=== PATIENT | female | born 1965 | race Caucasian/White ===

== ENCOUNTER 2022-08-17 09:28 | Outpatient (CLI) | payer OTHER, SELFPAY ==
[2022-08-17 09:44] LABS: Basophils Absolute Auto 0.04 K/mm3 (0.00-0.10); Basophils Percent Auto 0.5 % (0.0-1.0); Eosinophils Absolute Auto 0.15 K/mm3 (0.02-0.50); Hematocrit 45.6 % (35.0-49.0); Hemoglobin 14.8 g/dL (12.0-15.0); Immature Granulocyte Absolute 0.02 K/mm3 (0.00-0.00); Immature Granulocyte Percent A 0.3 % (0.0-0.0); Lymphocytes Absolute Auto 2.27 K/mm3 (1.10-4.50); Lymphocytes Percent Auto 30.1 % (18.0-42.0); Mean Corpuscular HGB Conc 32.5 g/dL (32.0-36.0); Mean Corpuscular Hemoglobin 27.8 pg (27.0-31.0); Mean Corpuscular Volume 85.7 fL (78.0-102.0); Mean Platelet Volume 10.5 fl (9.2-11.8); Monocytes Absolute Auto 0.48 K/mm3 (0.10-0.90); Monocytes Percent Auto 6.4 % (2.0-11.0); Neutrophils Absolute Auto 4.6 K/mm3 (1.7-7.2); Neutrophils Percent Auto 60.7 % (50.0-70.0); Platelet Count Result 261 K/mm3 (150-420); Red Blood Count 5.32 M/mm3 (4.20-5.40); Red Cell Distribution Width 13.8 % (11.6-14.4); White Blood Count 7.5 K/mm3 (4.8-10.8)
[2022-08-17 09:49] LABS: Appearance Urine Clear (Clear); Bilirubin Urine Negative (Negative); Blood Urine Negative (Negative); Color Urine Light Yellow (Yellow); Glucose Urine UA Negative (Negative); Ketones Urine Negative (Negative); Leukocyte Esterase Ur 1+ (Negative); Nitrate Urine Positive (Negative); Protein Urine Negative (Negative); Urobilinogen Urine 0.2 mg/dL (0.2-1.0); pH Urine 6.5 (5.0-8.0)
[2022-08-17 10:02] LABS: Add Urine Microscopic? YES; Bacteria Urine 3+ /hpf; RBC Urine None seen /hpf (0-2); Squamous Epithelial Cell Urine Few /hpf (Few)
[2022-08-17 10:44] LABS: Alanine Aminotransferase 34 U/L (14-59); Albumin Level 3.7 g/dL (3.4-5.0); Alkaline Phosphatase 132 U/L (46-116); Anion Gap 6 mmol/L (8-16); Aspartate Amino Transferase 13 U/L (15-37); Bilirubin,Total 0.4 mg/dL (0.00-1.00); Blood Urea Nitrogen 14 mg/dL (7-18); Calcium 10.1 mg/dL (8.5-10.1); Carbon Dioxide 30 mmol/L (21-32); Chloride 105 mmol/L (98-108); Cholesterol 221 mg/dL (0-200); Estimated Glomerular Filt Rate > 60; Free T3 4.17 pg/mL (2.18-3.98); Free T4 Free Thyroxine 1.19 ng/dL (0.76-1.46); Glucose 95 mg/dL (70-99); HDL Direct 53 mg/dL (40-60); LDL Cholesterol Calculated 143 mg/dL (<130); Osmolality Calculated 292 mOsm/kg (285-295); Potassium 4.5 mmol/L (3.5-5.1); Sodium 141 mmol/L (136-145); Total Protein 6.7 g/dL (6.4-8.2); Triglycerides 125 mg/dL (0-150)
[2022-08-17 11:09] LABS: Thyroid Stimulating Hormone < 0.01 uIU/mL (0.36-3.74)
== END 2022-08-17 09:29 | disposition home or self-care (01) ==
LOC: CHSLAB 09:35
PROVIDERS: PCP Internal Medicine; Visit Provider Internal Medicine
DX: I10 Essential (primary) hypertension (principal)
CPT/HCPCS: 36415; 80053; 80061; 81001; 84439; 84443; 84481; 85025

== ENCOUNTER 2022-08-19 12:47 | Outpatient (CLI) | payer OTHER, SELFPAY ==
--- NOTE | ~2022-08-19 | MM_ITS ---
EXAMINATION: MM screening parris BI w rosanna HISTORY: Screening mammogram TECHNIQUE: Craniocaudal and mediolateral oblique 3-D tomosynthesis images were obtained and synthetic 2-D images were generated. CAD analysis was submitted and interpreted. COMPARISON: No prior mammogram is available for comparison at this institution. BREAST PARENCHYMAL COMPOSITION: There are scattered areas of fibroglandular density. FINDINGS: There is no evidence of suspicious mass, calcification, or architectural distortion to sugg est malignancy in either breast. There has been no suspicious interval change. IMPRESSION: 1. No mammographic evidence of malignancy. 2. Recommend routine screening mammography in one year. BI-RADS Category 1: Negative Reviewed, dictated and finalized at location A.
--- NOTE | ~2022-08-19 | DEXA_ITS ---
Bone Density Report Name: LEONORA PENALOZA Age: 57 Sex: Female Ethnicity: White Date of : 1965 Indication: postmenopausal; screening for osteoporosis; parental hip fracture; height loss; prior fracture; asthma or emphysema; hysterectomy; Referring Provider: Ishaan Neal Study: Bone densitometry was performed. Exam Date: August 19, 2022 Accession number: [id number] Bone Density: Region BMD T-score Z-score Classification AP Spine(L1-L4) 0.927 -1.1 0.3 Osteopenia Femoral Neck (Left) 0.644 -1.8 -0.6 Osteopenia Total Hip (Left) 0.789 -1.3 -0.4 Osteopenia Femoral Neck (Right) 0.643 -1.9 -0.6 Osteopenia Total Hip (Right) 0.796 -1.2 -0.3 Osteopenia Femoral Neck Mean 0.644 -1.9 -0.6 Osteopenia Total Hip Mean 0.793 -1.2 -0.3 Osteopenia World Health Organization criteria for BMD impression classify patients as: Normal (T-score at or above -1.0), Osteopenia (T-score between -1.0 and -2.5), or Osteoporosis (T-score at or below -2.5). 10-year Fracture Risk: FRAX not reported because: Prior hip or vertebral fracture Clinical Information Provided by Patient: Have had a previous hip or vertebral fracture Has had a low trauma fracture Parent has had a hip fracture Has used the following medications: Vitamin D, Calcium Has the following medical conditions: Asthma or Emphysema, Hysterectomy Patient maximum height was 68.5 Menopause Age: 46 No regular weight bearing exercise Does not regularly consume dairy products Drinks caffeinated beverages Onset of menses at age 11 Number of children 3 Impression: The patient has low bone mass, based on the Right Femoral Neck T-score. The patient has risk factors, including: parental hip fracture, previous fracture. Discussion: INCREASED RISK OF FRACTURE DUE TO HISTORY OF FRACTURE. The patient's previous fracture puts the patient at high risk of a future fracture. In untreated patients, the risk of osteoporotic fracture increases approximately two-fold for each 1.0 SD decrease in T-score. Low bone density is not the only risk factor for fracture; also consider factors such as patient's age, frailty or poor health, risk of falling, risk of injury, previous osteoporotic fracture, family history of osteoporosis, cigarette smoking, low body weight, etc. Not everyone with a low trauma fracture has osteoporosis; osteomalacia and other metabolic bone disorders should also be considered. Patients who have osteoporosis should be evaluated for specific diseases and conditions (secondary causes) that may cause or contribute to bone loss and fracture risk. National Osteoporosis Foundation (NOF) recommends pharmacologic intervention for patients with a prior hip or vertebral fracture regardless of BMD T-score. The patient should follow a healthful lifestyle (good nutrition with adequate calcium and vitamin D, and appropriate weight-bearing exercise).
== END 2022-08-19 12:48 | disposition home or self-care (01) ==
LOC: CHSIMG 12:49
PROVIDERS: PCP Internal Medicine; Visit Provider Internal Medicine
DX: Z12.31 Encounter for screening mammogram for malignant neoplasm of breast (principal); Z78.0 Asymptomatic menopausal state; M85.89 Other specified disorders of bone density and structure, multiple sites
CPT/HCPCS: 77063; 77067; 77080

== ENCOUNTER → 2022-09-08 12:55 | Outpatient (CLI) | payer OTHER, SELFPAY ==
--- NOTE | ~2022-09-08 | US_ITS ---
EXAMINATION: US thyroid DATE: 09/08/2022 13:20 INDICATION: Hyperthyroidism. TECHNIQUE: Multiple ultrasound images of the thyroid were obtained. COMPARISON: None. FINDINGS: The right thyroid lobe measures 5.9 x 2.3 x 2.5 cm. The left thyroid lobe measures 5.2 x 1.5 x 2.0 c m. In the left thyroid lobe, there is a 1.3 cm solid, hypoechoic, wider than tall nodule with ill-de fined margin and punctate echogenic foci (TI-RADS TR5). In the left thyroid lobe, there is an 11 mm s olid, hypoechoic, wider than tall nodule with smooth margin without echogenic foci (TR4). In the righ t thyroid lobe, there is a 1.7 cm solid, hypoechoic, wider than tall nodule with punctate echogenic f oci and smooth margin (TR5). In the right thyroid lobe, there is a 2.0 cm solid, hypoechoic, wider th an tall nodule with smooth margin, punctate echogenic foci, and macrocalcification (TR5). IMPRESSION: 1. Multinodular goiter. Ultrasound-guided fine-needle aspiration of 2 nodules is recommended. Reviewed, dictated and finalized at location A. IMPRESSION: 1. Multinodular goiter. Ultrasound-guided fine-needle aspiration of 2 nodules i s recommended.
== END ==
PROVIDERS: PCP Internal Medicine; Visit Provider Internal Medicine
DX: E05.90 Thyrotoxicosis, unspecified without thyrotoxic crisis or storm (principal); E04.2 Nontoxic multinodular goiter
CPT/HCPCS: 76536

== ENCOUNTER 2022-10-03 07:56 | Outpatient (CLI) | payer OTHER, SELFPAY ==
--- NOTE | ~2022-10-03 | NM_ITS ---
EXAMINATION: NM thyroid scan w uptake DATE: 10/04/2022 10:03 INDICATION: Hyperthyroidism. COMPARISON: Ultrasound 09/08/2022 TECHNIQUE: 0.228 mCi I-123 was administered orally. Scintigraphic images of the thyroid gland were o btained at 24 hours. Thyroid uptake was calculated by the technologist. FINDINGS: The thyroid uptake is 48% (normal 10-30%). There is heterogeneous activity in the thyroid correlating with a multinodular goiter by ultrasound. IMPRESSION: 1. Increased 24-hour iodine uptake, consistent with Graves' disease. 2. Multinodular goiter. Reviewed, dictated and finalized at location A.
== END 2022-10-03 07:57 | disposition home or self-care (01) ==
LOC: CHSIMG 07:57
PROVIDERS: PCP Internal Medicine; Visit Provider Internal Medicine
DX: E05.90 Thyrotoxicosis, unspecified without thyrotoxic crisis or storm (principal); E04.2 Nontoxic multinodular goiter
CPT/HCPCS: 78014; A9516

== ENCOUNTER 2023-01-10 11:06 | Outpatient (CLI) | payer OTHER, SELFPAY ==
[2023-01-10 11:21] LABS: Basophils Absolute Auto 0.05 K/mm3 (0.00-0.10); Basophils Percent Auto 0.7 % (0.0-1.0); Eosinophils Absolute Auto 0.21 K/mm3 (0.02-0.50); Eosinophils Percent Auto 2.8 % (1.0-6.0); Immature Granulocyte Absolute 0.03 K/mm3 (0.00-0.00); Immature Granulocyte Percent A 0.4 % (0.0-0.0); Lymphocytes Absolute Auto 1.86 K/mm3 (1.10-4.50); Lymphocytes Percent Auto 24.8 % (18.0-42.0); Mean Corpuscular HGB Conc 32.6 g/dL (32.0-36.0); Mean Corpuscular Hemoglobin 27.7 pg (27.0-31.0); Mean Corpuscular Volume 84.9 fL (78.0-102.0); Mean Platelet Volume 10.7 fl (9.2-11.8); Monocytes Absolute Auto 0.41 K/mm3 (0.10-0.90); Monocytes Percent Auto 5.5 % (2.0-11.0); Neutrophils Absolute Auto 4.9 K/mm3 (1.7-7.2); Neutrophils Percent Auto 65.8 % (50.0-70.0); Platelet Count Result 237 K/mm3 (150-420); Red Blood Count 5.42 M/mm3 (4.20-5.40); Red Cell Distribution Width 13.5 % (11.6-14.4); White Blood Count 7.5 K/mm3 (4.8-10.8)
[2023-01-10 11:32] LABS: Bilirubin Urine Negative (Negative); Blood Urine Negative (Negative); Color Urine Yellow (Yellow); Glucose Urine UA Negative (Negative); Ketones Urine Negative (Negative); Leukocyte Esterase Ur Trace (Negative); Nitrate Urine Positive (Negative); Protein Urine Negative (Negative); Specific Grav Ur 1.025 (1.010-1.020); Urobilinogen Urine 0.2 mg/dL (0.2-1.0)
[2023-01-10 11:41] LABS: Add Urine Microscopic? YES; Appearance Urine Cloudy (Clear); Bacteria Urine 4+ /hpf; RBC Urine None seen /hpf (0-2); Squamous Epithelial Cell Urine Few /hpf (Few)
[2023-01-10 11:57] LABS: Alanine Aminotransferase 39 U/L (14-59); Albumin Level 3.4 g/dL (3.4-5.0); Alkaline Phosphatase 114 U/L (46-116); Anion Gap 7 mmol/L (8-16); Aspartate Amino Transferase 15 U/L (15-37); Bilirubin,Total 0.4 mg/dL (0.00-1.00); Blood Urea Nitrogen 17 mg/dL (7-18); Calcium 9.9 mg/dL (8.5-10.1); Carbon Dioxide 30 mmol/L (21-32); Chloride 103 mmol/L (98-108); Estimated Glomerular Filt Rate > 60; Free T3 3.58 pg/mL (2.18-3.98); Free T4 Free Thyroxine 1.15 ng/dL (0.76-1.46); Glucose 116 mg/dL (70-99); Osmolality Calculated 292 mOsm/kg (285-295); Sodium 140 mmol/L (136-145); Total Protein 6.6 g/dL (6.4-8.2)
[2023-01-10 12:26] LABS: Thyroid Stimulating Hormone < 0.01 uIU/mL (0.36-3.74)
[2023-01-13 13:34] LABS: Thyroid Stimulating Immunoglob <89 % baseline (<140)
[2023-01-15 05:16] LABS: Thyroid Peroxidase Antibodies 6 IU/mL (<9)
== END 2023-01-10 11:07 | disposition home or self-care (01) ==
PROVIDERS: PCP Internal Medicine; Visit Provider Internal Medicine
DX: I10 Essential (primary) hypertension (principal); E03.9 Hypothyroidism, unspecified; E04.9 Nontoxic goiter, unspecified; N39.0 Urinary tract infection, site not specified
CPT/HCPCS: 36415; 80053; 81001; 84439; 84443; 84445; 84481; 85025; 86376; 87086; 87088

== ENCOUNTER 2023-01-10 15:35 | Emergency (ER) | payer OTHER, SELFPAY ==
--- NOTE | ~2023-01-10 | CT_ITS ---
EXAMINATION: CT abdomen pelvis wo con DATE: 01/10/2023 16:14 INDICATION: Left flank pain TECHNIQUE: Computed tomography (CT) of the abdomen and pelvis was performed without intravenous contr ast. Automated exposure control and iterative reconstruction technique were employed. The dose-length product was 877.18 mGy-cm. COMPARISON: None. FINDINGS: Lower thorax: Unremarkable Liver: Normal. Biliary/Gallbladder: Gallbladder is normal. No bile duct dilation. Pancreas: No mass or duct dilation. Spleen: Normal. Adrenals:No mass. Kidneys: No hydronephrosis or suspicious mass. Bilateral angiomyolipomas less than 2 cm on the right and 2.9 cm on the left, without hemorrhage. Subcentimeter focal hyperdensities in the right kidney ma y represent nonobstructing cortical calcification versus small hemorrhagic cysts. No obstructive calc ification present. No suspicious mass. GI tract: No small or large bowel dilation. Normal appendix. Diverticulosis without diverticulitis. Mesentery/Peritoneum: No ascites, mass, or free air. Retroperitoneum: No mass. Pelvis: Normal urinary bladder. Absent uterus.. Soft Tissues: Soft tissues and body wall unremarkable. Bones: No acute osseous finding. IMPRESSION: No acute abdominopelvic process detected. Bilateral renal angiomyolipomas, measuring up to 2.9 cm on the left, for which follow-up imaging aftab mmended in 5 years. No follow-up recommended for the right-sided lesion. Reviewed, dictated and finalized at location K. ONNEL ASSISTANT IMPRESSION: No acute abdominopelvic process detected. 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 No follow-up recommended for the righ t-sided lesion.
[2023-01-10 15:35] VITALS: BP 207/100; PULSE 85; RESP 18; TEMP 35.9; O2SAT 98
--- NOTE | 2023-01-10 15:40 | ED.ABDPAIN ---
HPI - Abdominal Pain General Chief Complaint: Back Pain/Injury Stated Complaint: back pain Time Seen by Provider: 01/10/23 15:39 Source: patient and RN notes reviewed Mode of arrival: ambulatory Limitations: no limitations History of Present Illness MD elicited complaint: flank pain (left) Pertinent past history: none Onset (ago): day(s) (3) Pain Consistency: intermittent Location: L flank Severity: moderate Quality: cramping, stabbing and sharp Radiation: none Migration to: no migration Exacerbating factors: nothing Relieving factors: nothing Associated symptoms: vomiting ( on Monday none since) Related Data Home Medications Medication Instructions Recorded Confirmed carvedilol 6.25 mg tablet 12.5 mg PO DAILY 01/10/23 01/10/23 losartan 100 1 tablet PO DAILY 01/10/23 01/10/23 mg-hydrochlorothiazide 12.5 mg tablet Allergies Allergy/AdvReac Type Severity Reaction Status Date / Time Sulfa (Sulfonamide Allergy Severe Rash Verified 01/10/23 15:47 Antibiotics) codeine Allergy Intermediate GI UPSET Verified 01/10/23 15:47 erythromycin base Allergy Unknown Unknown Verified 01/10/23 15:47 EMYCIN Allergy Severe RED,FLUSHED, Uncoded 01/10/23 15:47 PEELING SKIN PMFSH Past Medical History Medical History (Updated 01/10/23 @ 16:44 by Jignesh Foster MD) Asthma Hypertension Surgical History Surgical History (Updated 01/10/23 @ 15:57 by Jignesh Foster MD) History of total abdominal hysterectomy and bilateral salpingo-oophorectomy Hx of tonsillectomy Family History Family History (System 03/26/19 @ 17:33 by Dara Fay) Mother Hypertension Family history of arthritis Family history of chronic obstructive pulmonary disease Family history of emphysema Father Carcinoma of colon Malignant neoplasm of prostate Sibling Family history of malignant neoplasm of uterus Social History Social History Smoking status: Never smoker Alcohol intake: current Exam Const: General: healthy appearing, no acute distress and alert Nutritional Appearance: well nourished Orientation/consciousness: patient oriented x3 Limitations: no limitations HENMT: Head: normal to inspection Ears: external ears normal Face/Nose/Sinus: Normal external nose present Face and sinus: normal facial exam Mouth: Yes moist mucous membranes Eyes: Conjunctivae: conjunctivae normal Pupils: Equal, round and reactive pupils present EOM: EOMs intact bilaterally Neck: Neck: normal visual inspection Resp: Effort & Inspection: normal respiratory effort Auscultation: clear to auscultation bilaterally Cardio: Rate: regular rate Rhythm: regular rhythm GI: GI Palp: Yes Soft to palpation and No Tenderness to palpation present (GI) Auscultation: normal bowel sounds Back/Spine/Pelvis: Back: CVA tenderness ( moderate on the left) Cervical Spine: cervical ROM normal Thoracic/Lumbar Spine: thoraco-lumbar ROM normal Skin: General skin exam: normal color Rashes: no rashes Neuro: General: patient oriented x3, moves all extremities, no focal motor deficits and CN's II-XI intact bilaterally Speech: normal speech Gait exam (Neuro): Normal gait present Extrem: General: normal to inspection and no clubbing, cyanosis or edema Psych: Mental Status: mental status grossly normal Affect: normal affect Attitude: cooperative Course Vital Signs Vital signs: Vital Signs Temperature 35.9 C L 01/10/23 15:35 Pulse Rate 85 01/10/23 15:35 Respiratory Rate 18 01/10/23 15:35 Blood Pressure 207/100 H 01/10/23 15:35 Pulse Oximetry 98 01/10/23 15:35 Oxygen Delivery Room Air 01/10/23 15:35 Temperature 35.9 C L 01/10/23 15:50 Pulse Rate 85 01/10/23 15:50 Respiratory Rate 18 01/10/23 15:50 Blood Pressure 207/100 H 01/10/23 15:50 Pulse Oximetry 98 01/10/23 15:50 Oxygen Delivery Room Air 01/10/23 15:50 MDM - Abdominal Pain Dif
[2023-01-10 15:50] VITALS: BP 207/100; PULSE 85; RESP 18; TEMP 35.9; O2SAT 98
[2023-01-10] MEDS: KETOROLAC (*BKC) 60 MG/2 ML VIAL IM (16:04)
[2023-01-10] MEDS: cefTRIAXone 1 GM VIAL IM (17:02)
[2023-01-10] MEDS: LIDOCAINE HCL 1% LOCAL INJ 10 ML VIAL (17:03)
[2023-01-10 17:10] VITALS: BP 198/88; PULSE 88; RESP 18; O2SAT 98
== END 2023-01-10 17:10 | disposition home or self-care (01) ==
PROVIDERS: Emergency Provider Emergency Medicine; PCP Internal Medicine
DX: N30.00 Acute cystitis without hematuria (principal); J45.909 Unspecified asthma, uncomplicated; I10 Essential (primary) hypertension; Z79.899 Other long term (current) drug therapy
CPT/HCPCS: 74176; 96372; 99284; J0696; J1885

== ENCOUNTER 2023-06-08 10:21 | Outpatient (CLI) | payer OTHER, SELFPAY ==
[2023-06-08 11:40] LABS: Free T3 3.95 pg/mL (2.18-3.98); Free T4 Free Thyroxine 1.14 ng/dL (0.76-1.46)
[2023-06-08 12:21] LABS: Thyroid Stimulating Hormone < 0.01 uIU/mL (0.36-3.74)
[2023-06-17 17:04] LABS: PRA 0.45 ng/mL/h (0.25-5.82)
== END 2023-06-08 10:22 | disposition home or self-care (01) ==
PROVIDERS: PCP Internal Medicine
DX: I1A.0 Resistant hypertension (principal); E05.90 Thyrotoxicosis, unspecified without thyrotoxic crisis or storm
CPT/HCPCS: 36415; 82088; 84244; 84432; 84439; 84443; 84481

== ENCOUNTER 2023-07-06 10:41 | Outpatient (CLI) | payer OTHER, SELFPAY ==
--- NOTE | ~2023-07-06 | XR_ITS ---
AP and lateral views of the left hip Clinical history: Pain Findings: No acute fracture or dislocation is seen. Osseous alignment is anatomic. Moderate left hip joint degenerative change present. Soft tissues are unremarkable. Impression: Moderate left hip joint degenerative change. Reviewed, dictated and finalized at location . Impression: Moderate left hip joint degenerative change.
== END 2023-07-06 10:42 | disposition home or self-care (01) ==
LOC: CHSIMG 10:43
PROVIDERS: PCP Internal Medicine; Visit Provider Internal Medicine
DX: M16.12 Unilateral primary osteoarthritis, left hip (principal)
CPT/HCPCS: 73502

== ENCOUNTER 2023-12-13 10:12 | Outpatient (CLI) | payer OTHER, SELFPAY ==
[2023-12-13 10:33] LABS: Basophils Absolute Auto 0.07 K/mm3 (0.00-0.10); Basophils Percent Auto 0.8 % (0.0-1.0); Eosinophils Absolute Auto 0.23 K/mm3 (0.02-0.50); Eosinophils Percent Auto 2.7 % (1.0-6.0); Hematocrit 44.7 % (35.0-49.0); Hemoglobin 14.6 g/dL (12.0-15.0); Immature Granulocyte Absolute 0.04 K/mm3 (0.00-0.00); Immature Granulocyte Percent A 0.5 % (0.0-0.0); Lymphocytes Absolute Auto 2.01 K/mm3 (1.10-4.50); Lymphocytes Percent Auto 23.4 % (18.0-42.0); Mean Corpuscular HGB Conc 32.7 g/dL (32-36); Mean Corpuscular Hemoglobin 27.2 pg (27.0-31.0); Mean Corpuscular Volume 83.4 fL (78.0-102.0); Mean Platelet Volume 10.8 fl (9.2-11.8); Monocytes Absolute Auto 0.65 K/mm3 (0.10-0.90); Monocytes Percent Auto 7.6 % (2.0-11.0); Platelet Count Result 321 K/mm3 (150-420); Red Blood Count 5.36 M/mm3 (4.20-5.40); Red Cell Distribution Width 13.2 % (11.6-14.4); White Blood Count 8.6 K/mm3 (4.8-10.8)
[2023-12-13 11:15] LABS: Alanine Aminotransferase 31 U/L (14-59); Alkaline Phosphatase 118 U/L (46-116); Anion Gap 10 mmol/L (4-12); Aspartate Amino Transferase 15 U/L (15-37); Bilirubin,Total 0.6 mg/dL (0.00-1.00); Blood Urea Nitrogen 18 mg/dL (7-18); Calcium 10.4 mg/dL (8.5-10.1); Carbon Dioxide 28 mmol/L (21-32); Chloride 104 mmol/L (98-108); Cholesterol 218 mg/dL (0-200); Estimated Glomerular Filt Rate > 60; Free T3 4.71 pg/mL (2.18-3.98); Glucose 100 mg/dL (70-99); HDL Direct 46 mg/dL (40-60); LDL Cholesterol Calculated 147 mg/dL (<130); Osmolality Calculated 295 mOsm/kg (285-295); Sodium 142 mmol/L (136-145); Total Protein 6.7 g/dL (6.4-8.2); Triglycerides 124 mg/dL (0-150)
[2023-12-13 11:20] LABS: Thyroid Stimulating Hormone < 0.01 uIU/mL (0.36-3.74)
== END 2023-12-13 10:13 | disposition home or self-care (01) ==
PROVIDERS: PCP Internal Medicine; Visit Provider Internal Medicine
DX: I10 Essential (primary) hypertension (principal); E05.90 Thyrotoxicosis, unspecified without thyrotoxic crisis or storm; E66.9 Obesity, unspecified
CPT/HCPCS: 36415; 80053; 80061; 84439; 84443; 84481; 85025

== ENCOUNTER 2023-12-25 23:33 | Emergency (ER) | payer OTHER, SELFPAY ==
--- NOTE | ~2023-12-25 | CT_ITS ---
CT of the Abdomen and Pelvis: Indication: Abdominal pain Technique: 2.5 mm axial scans were obtained through the abdomen and pelvis following intravenous adm inistration of 100 cc of Omnipaque 350. Dose reduction technique was used on this scan by utilizing a utomated exposure control and iterative reconstruction technique. The dose-length product (DLP) was 7 03.55 mGy-cm. COMPARISON: 01/10/2023 Findings: Scans through the lung bases are unremarkable. The liver, spleen, gallbladder, adrenals and right kidney are within normal limits. 2.6 subcentimeter fat-containing left renal mass is compatible with angiomyolipoma. There are atherosclerotic calcific ations of the aorta. No lymphadenopathy. There is peripancreatic fluid and inflammatory change exten ding to the right upper quadrant, and into the bilateral paracolic gutters. There is small amount of pelvic ascites. No pancreatic necrosis or focal contained fluid collection evident. No bowel obstruction or bowel wall thickening. There is no evidence to suggest acute appendicitis. Images through the pelvis were performed. Urinary bladder unremarkable. Status post hysterectomy. No pelvic mass seen. Impression: Peripancreatic fluid and inflammatory change with associated small amount of pelvic ascites, as detai led above. Findings are consistent with acute pancreatitis. No evidence for pancreatic necrosis or ps eudocyst. 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 Reviewed, dictated and finalized at location . /MOULD OPERATOR Impression: Peripancreatic fluid and inflammatory change with associated small amount of pe lvic ascites, as detailed above. Findings are consistent with acute pancreatiti s. No evidence for pancreatic necrosis or pseudocyst. 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
[2023-12-25 23:35] VITALS: BP 154/102; PULSE 90; RESP 18; TEMP 36.6; O2SAT 97
--- NOTE | 2023-12-25 23:44 | ED_ITS ---
HPI - Abdominal Pain General Chief Complaint: Abdominal Pain Stated Complaint: abdominal pain Time Seen by Provider: 12/25/23 23:44 Source: patient Mode of arrival: ambulatory History of Present Illness HPI narrative: 58 YEARS OLD WHITE FEMALE DROVE HERSELF TO THE EMERGENCY ROOM COMPLAINING OF GENERALIZED ABDOMINAL PAIN STARTED 12 HOURS PRIOR TO ARRIVAL TO THE EMERGENCY ROOM, GENERALIZED, SHARP, WITH INTERMITTENT AGGRAVATION WORSENING, PATIENT DENIES AGGRAVATING OR RELIEVING FACTORS, PATIENT REPORTS VOMITING ONCE PER HOURS PRIOR ARRIVAL, SHE DENIES ANY DIARRHEA CONSTIPATION FEVER CHILLS. HISTORY OF HYSTERECTOMY HYPERTENSION, HYPOTHYROIDISM, ASTHMA. PATIENT DOES NOT SMOKE DRINKS OCCASIONALLY. Related Data Home Medications Medication Instructions Recorded Confirmed carvedilol 6.25 mg tablet (Coreg) 12.5 mg PO DAILY 01/10/23 12/25/23 losartan 100 1 tablet PO DAILY 01/10/23 12/25/23 mg-hydrochlorothiazide 12.5 mg tablet (Hyzaar) tirzepatide (weight loss) 10 10 mg subcut 12/25/23 mg/0.5 mL subcutaneous pen injector (Zepbound) Allergies Allergy/AdvReac Type Severity Reaction Status Date / Time Sulfa (Sulfonamide Allergy Severe Rash Verified 12/25/23 23:45 Antibiotics) codeine Allergy Intermediate GI UPSET Verified 12/25/23 23:45 erythromycin base Allergy Unknown Unknown Verified 12/25/23 23:45 EMYCIN Allergy Severe RED,FLUSHED, Uncoded 01/10/23 15:47 PEELING SKIN Review of Systems Review of Systems: All systems reviewed & are unremarkable except as noted in HPI and below PMFSH Past Medical History Medical History Asthma Hypertension Surgical History Surgical History History of total abdominal hysterectomy and bilateral salpingo-oophorectomy Hx of tonsillectomy Family History Family History Mother Hypertension Family history of arthritis Family history of chronic obstructive pulmonary disease Family history of emphysema Father Carcinoma of colon Malignant neoplasm of prostate Sibling Family history of malignant neoplasm of uterus Social History Social History Smoking status: Never smoker Alcohol intake: current Exam 2 Narrative: GENERAL APPEARANCE: WELL-DEVELOPED, WELL-NOURISHED SKIN: NORMAL COLOR HEAD: NORMOCEPHALIC, NONTRAUMATIC EYES: CLEAR CONJUNCTIVA ENT: OROPHARYNX NORMAL, EARS NORMAL, NOSE NORMAL NECK: SUPPLE, NONTENDER CHEST AND RESPIRATORY: AIRWAY PATENT, NO RESPIRATORY DISTRESS, NO ACCESSORY MUSCLE USE HEART: REGULAR RATE/RHYTHM ABDOMEN: SOFT, GENERALIZED TENDERNESS, POSITIVE GUARDING, POSITIVE REBOUND, HYPOACTIVE BOWEL SOUNDS VASCULAR: NORMAL PERIPHERAL PULSES, NORMAL CAPILLARY REFILL. MUSCULOSKELETAL: NORMAL RANGE OF MOTION, NONTENDER BACK NEUROLOGIC: ALERT AND ORIENTED ?3, DIRECTOR STYLE IS NORMAL TESTED, NO GROSS MOTOR DEFICIT Course Vital Signs Vital signs: Vital Signs Temperature 36.6 C 12/25/23 23:35 Pulse Rate 90 12/25/23 23:35 Respiratory Rate 18 12/25/23 23:35 Blood Pressure 154/102 H 12/25/23 23:35 Pulse Oximetry 97 12/25/23 23:35 Oxygen Delivery Room Air 12/25/23 23:35 Temperature 36.6 C 12/25/23 23:35 Pulse Rate 87 12/26/23 02:01 Respiratory Rate 18 12/26/23 02:01 Blood Pressure 145/69 H 12/26/23 02:01 Pulse Oximetry 95 12/26/23 02:01 Oxygen Delivery Room Air 12/26/23 02:01 MDM - Abdominal Pain MDM Narrative Medical decision making narrative: PATIENT DROVE HERSELF TO THE EMERGENCY ROOM WITH GENERALIZED ABDOMINAL PAIN STARTED 12 HOURS PRIOR TO ARRIVAL IN. VITAL SIGNS SHOWING BLOOD PRESSURE 154/102, NO FEVER PHYSICAL EXAMINATION SHOWING GENERALIZED DIFFUSE ABDOMINAL TENDERNESS DIFFERENTIAL DIAGNOSIS INCLUDE SMALL-BOWEL OBSTRUCTION, DIVERTICULITIS, PANCREATITIS, CHOLECYSTITIS, APPENDICITIS, PERFORATED VISCUS, ISCHEMIC COLITIS. BLOOD WORKUP TODAY SHOWED WBC 19.2, hemoglobin 16.5, creatinine of 0.7, glucose 188, total bilirubin 1.4, AST 138, ALT 228, alkaline phosphatase 158, lipase more than 1500 Urinalysis showed 2+ urine bilirubin, 4.[address] abdomen and pelvis with IV contrast showed finding consistent with acute pancreatitis, dilated common bile duct up to 7 mm. Transferred to [facility] discussed with Dr. Villanueva the extrusion supervisor and Dr. Pappas the hospitalist. In the ED patient received 2 L of normal saline IV, 0.5 mg of Dilaudid IV x2, 4 mg of Zofran IV time 1 Differential Diagnosis Differential diagnosis: Likely other ( ABOVE) Medical Records Attestation: I reviewed the patient's medical records. Lab Data Attestation: I reviewed the patient's lab results. 12/26/23 00:12 12/26/23 00:12 Labs: Lab Results 12/26/23 Range/Units 00:12 WBC 19.2 H (4.8-10.8) K/mm3 RBC 6.00 H (4.20-5.40) M/mm3 Hgb 16.5 H (12.0-15.0) g/dL Hct 49.4 H (35.0-49.0) % MCV 82.3 (78.0-102.0) fL MCH 27.5 (27.0-31.0) pg MCHC 33.4 (32-36) g/dL RDW 13.5 (11.6-14.4) % Plt Count 319 (150-420) K/mm3 MPV 11.1 (9.2-11.8) fl Immature Gran % (Auto) 0.5 H (0.0-0.0) % Neut % (Auto) 87.5 H (50.0-70.0) % Lymph % (Auto) 7.1 L (18.0-42.0) % [place] % (Auto) 4.4 (2.0-11.0) % Eos % (Auto) 0.3 L (1.0-6.0) % Baso % (Auto) 0.2 (0.0-1.0) % Lymph # (Auto) 1.36 (1.10-4.50) K/mm3 [place] # (Auto) 0.84 (0.10-0.90) K/mm3 Eos # (Auto) 0.06 (0.02-0.50) K/mm3 Baso # (Auto) 0.04 (0.00-0.10) K/mm3 Abs Immat Gran (auto) 0.10 H (0.00-0.00) K/mm3 Absolute Neuts (auto) 16.75 H (1.70-7.20) K/mm3 Absolute Nucleated RBC 0.00 (0.00-0.00) K/mm3 Nucleated RBC % 0.0 (0-0.0) % Sodium 138 (136-145) mmol/L Potassium 4.0 (3.5-5.1) mmol/L Chloride 103 (98-108) mmol/L Carbon Dioxide 24 (21-32) mmol/L Anion Gap 11 (4-12) mmol/L BUN 17 (7-18) mg/dL Creatinine 0.73 (0.55-1.02) mg/dL Estim Creat Clear Calc 81 ml/min Estimated GFR > 60 (59 - ) Glucose 188 H (70-99) mg/dL Calculated Osmolality 292 (285-295) mOsm/kg Lactic Acid 1.6 (0.4-2.0) mmol/L Calcium 10.1 (8.5-10.1) mg/dL Total Bilirubin 1.4 H (0.00-1.00) mg/dL AST 138 H (15-37) U/L ALT 228 H (14-59) U/L Alkaline Phosphatase 158 H (46-116) U/L Total Protein 6.8 (6.4-8.2) g/dL Albumin 3.5 (3.4-5.0) g/dL Lipase > 1500 H (16-77) U/L Urine Color Dark orange (Yellow) Urine Appearance Clear (Clear) Urine pH 5.5 (5.0-8.0) Ur Specific [place] 1.025 H (1.010-1.020) Urine Protein 1+ H (Negative) Urine Glucose (UA) Negative (Negative) Urine Ketones 1+ H (Negative) Ur Blood (Man) Negative (Negative) Urine Nitrate Negative (Negative) Urine Bilirubin 2+ H (Negative) Urine Urobilinogen 4.0 H (0.2-1.0) mg/dL Leukocyte Esterase Rfl Negative (Negative) ALEC/UL Urine RBC 0-2 (0-2) /hpf Urine WBC 0-3 (0-3) /hpf Ur Squamous Epith Cells Many H (Few) /hpf Calcium Oxalate Crystal Many H (None) /hpf Urine Bacteria 3+ H (None) /hpf Imaging Data Radiologist's impression: CT abdomen and pelvis with IV contrast showed Mild dependent atelectatic changes Diffuse enlargement of the pancreas with prominent adjacent peripancreatic inflammatory change with mesenteric ascites findings favored to relate to acute pancreatitis , ductal dilatation measuring up to 7 mm The gallbladder is grossly unremarkable No evidence peripancreatic fluid collection or abscess Critical Care Time Critical Care Time Critical Care Time: Yes Total Critical Care Time: 30 Discharge Plan Discharge Clinical Impression: Acute pancreatitis Patient Disposition: Acute Care Hospital Condition: Stable Instructions: Pancreatitis (ED) Additional Instructions: transferred to [facility] Prescriptions: No Action Zepbound 10 mg/0.5 mL pen injector 10 mg SUBCUT carvedilol [Coreg] 6.25 mg tablet 12.5 mg PO DAILY losartan-hydrochlorothiazide [Hyzaar] 100-12.5 mg tablet 1 tablet PO DAILY Follow-up/Referrals: Ishaan Neal MD [Primary Care Provider] -
--- NOTE | 2023-12-25 23:58 | PC.NURSE ---
pt taken to bathroom for urine specimen.
[2023-12-26] VITALS (32 sets, daily range): BP systolic 139–162; BP diastolic 56–97; PULSE 80–100; RESP 14–29; TEMP 36.4; O2SAT 91–96
[2023-12-26] MEDS: HYDROmorphone HCL INJ (*CRX) 2 MG/ML VIAL 0.5 MG IV PUSH ×2 (00:03→02:59)
[2023-12-26] MEDS: SODIUM CHLORIDE 0.9% IV 1,000 ML 999 ML IV CONT ×2 (00:03→02:59)
[2023-12-26] MEDS: ONDANSETRON INJ 4 MG/2 ML VIAL IV PUSH (00:03)
--- NOTE | 2023-12-26 00:05 | PC.NURSE ---
patient medicated per order, see MAR.
[2023-12-26 00:18] LABS: Appearance Urine Clear (Clear); Basophils Absolute Auto 0.04 K/mm3 (0.00-0.10); Basophils Percent Auto 0.2 % (0.0-1.0); Bilirubin Urine 2+ (Negative); Blood Urine Negative (Negative); Eosinophils Absolute Auto 0.06 K/mm3 (0.02-0.50); Eosinophils Percent Auto 0.3 % (1.0-6.0); Glucose Urine UA Negative (Negative); Hematocrit 49.4 % (35.0-49.0); Hemoglobin 16.5 g/dL (12.0-15.0); Immature Granulocyte Percent A 0.5 % (0.0-0.0); Ketones Urine 1+ (Negative); Leukocyte Esterase Ur Negative LEU/UL (Negative); Lymphocytes Absolute Auto 1.36 K/mm3 (1.10-4.50); Lymphocytes Percent Auto 7.1 % (18.0-42.0); Mean Corpuscular HGB Conc 33.4 g/dL (32-36); Mean Corpuscular Hemoglobin 27.5 pg (27.0-31.0); Mean Corpuscular Volume 82.3 fL (78.0-102.0); Mean Platelet Volume 11.1 fl (9.2-11.8); Monocytes Absolute Auto 0.84 K/mm3 (0.10-0.90); Monocytes Percent Auto 4.4 % (2.0-11.0); Neutrophils Absolute Auto 16.75 K/mm3 (1.70-7.20); Neutrophils Percent Auto 87.5 % (50.0-70.0); Nitrate Urine Negative (Negative); Platelet Count Result 319 K/mm3 (150-420); Protein Urine 1+ (Negative); Red Cell Distribution Width 13.5 % (11.6-14.4); Specific Grav Ur 1.025 (1.010-1.020); White Blood Count 19.2 K/mm3 (4.8-10.8); pH Urine 5.5 (5.0-8.0)
[2023-12-26 00:25] LABS: Add Urine Microscopic? YES; Bacteria Urine 3+ /hpf; Calcium Oxalate Crystals Urine Many /hpf; Color Urine Dark Orange (Yellow); RBC Urine 0-2 /hpf (0-2); Squamous Epithelial Cell Urine Many /hpf (Few); WBC Urine 0-3 /hpf (0-3)
[2023-12-26 00:42] LABS: Alanine Aminotransferase 228 U/L (14-59); Albumin Level 3.5 g/dL (3.4-5.0); Alkaline Phosphatase 158 U/L (46-116); Anion Gap 11 mmol/L (4-12); Aspartate Amino Transferase 138 U/L (15-37); Bilirubin,Total 1.4 mg/dL (0.00-1.00); Blood Urea Nitrogen 17 mg/dL (7-18); Calcium 10.1 mg/dL (8.5-10.1); Carbon Dioxide 24 mmol/L (21-32); Chloride 103 mmol/L (98-108); Estimated CRCL calculation 81 ml/min; Estimated Glomerular Filt Rate > 60; Glucose 188 mg/dL (70-99); Osmolality Calculated 292 mOsm/kg (285-295); Sodium 138 mmol/L (136-145); Total Protein 6.8 g/dL (6.4-8.2)
[2023-12-26 00:43] LABS: Lipase > 1500 U/L (16-77)
[2023-12-26 00:47] LABS: Lactic Acid Reflex 1.6 mmol/L (0.4-2.0)
--- NOTE | 2023-12-26 01:03 | PC.NURSE ---
patient returned from imaging, awaiting results. update provided. call light within reach. RN monitoring.
--- NOTE | 2023-12-26 01:44 | PC.NURSE ---
patient update provided. RN monitoring. call light within reach, given warm blanket and lights dimmed for comfort.
--- NOTE | 2023-12-26 02:30 | PC.NURSE ---
dr. neville and RN at patient bedside to present findings and discuss plan of care. patient awake and alert at this time, verbalized understanding including need for transfer to higher level of care. transfer arrangements pending.
--- NOTE | 2023-12-26 03:04 | PC.NURSE ---
patient medicated, see APR. vss. RN monitoring. patient updated. ed staff awaiting call from transfer facility.
== END 2023-12-26 04:17 | disposition short-term general hospital (02) ==
PROVIDERS: Emergency Provider Emergency Medicine; PCP Internal Medicine
DX: K85.90 Acute pancreatitis without necrosis or infection, unspecified (principal); I10 Essential (primary) hypertension; Z79.899 Other long term (current) drug therapy
CPT/HCPCS: 36415; 74177; 80053; 81001; 83605; 83690; 85025; 96361; 96374; 96375; 96376; 99285; J1171; J2405; J7030; Q9967

== ENCOUNTER 2023-12-26 05:35 | Inpatient (IN) | payer OTHER, SELFPAY ==
--- NOTE | ~2023-12-26 | XR_ITS ---
EXAMINATION: XR cholangiogram surg 1st inj DATE: 12/29/2023 14:23 INDICATION: Cholelithiasis. Acute pancreatitis. TECHNIQUE: 65 fluoroscopic images of the right upper quadrant were obtained during intraoperative cho langiography performed by the surgeon. I was not present in the operating room. Fluoroscopy exposure time was 27 seconds. COMPARISON: None. FINDINGS: There is a catheter in the cystic duct. There is contrast opacification of the common duct. No choledocholithiasis. Contrast passes to the duodenum. IMPRESSION: 1. No choledocholithiasis. Reviewed, dictated and finalized at location A. NCE MANAGEMENT CONSULTANT IMPRESSION: 1. No choledocholithiasis.
--- NOTE | ~2023-12-26 | US_ITS ---
Limited ABDOMINAL ULTRASOUND Ordering provider: Eugene Fried MD History: . pancreatitis . Comparison: None. FINDINGS: LIVER: Normal size and echotexture. No focal hepatic lesions or perihepatic fluid collections are ever ntified. Portal vein flow is normal. GALLBLADDER: Multiple small stones are noted. No evidence for sludge or pericholecystic fluid collect ions. The wall thickness is 5 mm. A negative sonographic Oropeza's sign was noted. BILIARY DUCTS: No evidence for intra or extrahepatic biliary dilation. Common bile duct measures 5.5 mm in diameter which is within normal limits. PANCREAS: Not demonstrated. FREE FLUID: None. IMPRESSION: Cholelithiasis with thickened wall which may raise the possibility of cholecystitis. Clinical correla tion and follow-up advised. Otherwise, Unremarkable limited ultrasound of the abdomen. Reviewed, dictated and finalized at location A. P CONTRACT ANALYST IMPRESSION: Cholelithiasis with thickened wall which may raise the possibility of cholecyst itis. Clinical correlation and follow-up advised. Otherwise, Unremarkable limit ed ultrasound of the abdomen.
--- NOTE | 2023-12-26 05:06 | ADMGEN ---
This patient, Dara Calderón, was admitted to Medical Room 348-01. Patient/family oriented to hospital policies and general routines including ID bracelet, bed and alarms, visiting hours, pain management, procedures, bathroom and other care routines, personal items, smoking policy, room service/diet, and visiting hours. Information on how to activate the Rapid Response Team has been discussed. Patient/Family are encouraged to report perceived risks to care and to ask questions if they do not understand what they are told or what they should do.
--- NOTE | 2023-12-26 05:36 | ECG_ITS ---
Test Date: 2023-12-26 09:20:16 Measurements Intervals [place] Rate: 87 P: 3 PA: 130 QRS: -9 QRSD: 92 T: -10 QT: 339 QTc: 408 Interpretive Statements SINUS RHYTHM DELAYED PRECORDIAL R/S TRANSITION BORDERLINE ST-T WAVE ABNORMALITY- INFERIOR LEADS BASELINE ARTIFACT- I, II, III, AVR, AVL, AVF BORDERLINE ECG No previous ECG available for comparison Electronically Signed On 12-26-2023 09:27:17 SCRAP BALLER by Gumaro Finn D.O.
[2023-12-26 05:50] LABS: Basophils Percent Auto 0.3 % (0.2-1.2); Eosinophils Percent Auto 0.2 % (0-4.4); Hematocrit 49.4 % (37.0-47.0); Hemoglobin 15.2 g/dL (12.0-15.0); Immature Granulocyte Absolute 0.07 K/mm3 (0.00-0.031); Immature Granulocyte Percent A 0.5 % (0-0.5); Lymphocytes Absolute Auto 1.24 K/mm3 (0.9-3.2); Lymphocytes Percent Auto 8.7 % (18.3-44.2); Mean Corpuscular HGB Conc 30.8 g/dl (32-36); Mean Corpuscular Hemoglobin 26.9 pg (26-34); Mean Corpuscular Volume 87.3 fl (80-100); Monocytes Absolute Auto 0.7 K/mm3 (0.1-0.6); Monocytes Percent Auto 4.7 % (2.6-8.5); Neutrophils Absolute Auto 12.2 K/mm3 (1.3-6.7); Neutrophils Percent Auto 85.6 % (45.5-73.1); Platelet Count Result 254 k/mm3 (150-375); Red Blood Count 5.66 M/mm3 (4.2-5.4); Red Cell Distribution Width 13.9 % (11.5-14.5); White Blood Count 14.2 K/mm3 (4.5-10.0)
[2023-12-26 06:00] VITALS: BP 144/71; PULSE 82; RESP 20; TEMP 36.6; O2SAT 94
[2023-12-26 06:03] VITALS: BMI 30.7
[2023-12-26 06:04] LABS: Anion Gap 7 mmol/L (4-12); Blood Urea Nitrogen 15 mg/dL (7-17); Calcium 9.3 mg/dL (8.4-10.2); Carbon Dioxide 21 mmol/L (22-30); Chloride 108 mmol/L (98-107); Estimated CRCL calculation 114 ml/min; Estimated Glomerular Filt Rate > 60; Glucose 135 mg/dL (65-110); Magnesium 2.1 mg/dL (1.6-2.3); Potassium 4.2 mmol/L (3.4-5.0); Sodium 136 mmol/L (137-145)
[2023-12-26 06:05] LABS: Prothrombin Time 13.3 Seconds (11.1-14.7)
[2023-12-26 06:06] LABS: Partial Thromboplastin Time 22.9 Seconds (22.3-36.8)
--- NOTE | 2023-12-26 07:55 | P.HP_ITS ---
H&P: HPI History of Present Illness Date/Time: 12/26/23 07:55 Chief Complaint: Abdomen pain Narrative: 58 years old with history of hypertension, hypothyroidism, asthma present ED with a chief complaint of abdomen pain. Patient started abdomen pain yesterday afternoon, patient has diffuse abdomen pain since yesterday morning. The pain is getting worse gradually, patient also has nausea vomiting. Patient denies diarrhea. Patient denies chest pain, shortness of breath, cough cough, dysuria. Upon arrival to ED, patient has hypothermia 36 0.6, tachycardia tachypnea, blood pressure stable, no O2 desaturation on room air, lab showed leukocytosis 19,200, elevated total bilirubin 1.4, elevated liver enzymes and alk-phos, lipase move the 1500. CT showed acute pancreatitis. no evidence for pancreatic necrosis or pseudocyst. liver, spleen, gallbladder, adrenals and right kidney are within normal limits. Repeat ultrasound suggest acute cholecystitis with gallstone PMFSH Past Medical History Medical History Asthma Hypertension Surgical History Surgical History History of total abdominal hysterectomy and bilateral salpingo-oophorectomy Hx of tonsillectomy Family History Family History Mother Hypertension Family history of arthritis Family history of chronic obstructive pulmonary disease Family history of emphysema Father Carcinoma of colon Malignant neoplasm of prostate Sibling Family history of malignant neoplasm of uterus Social History Social History Smoking status: Never smoker Alcohol intake: current Drinks per week: 3 Substance use: never Do You Feel Safe in your Home?: No Lack of Transportation: No Lack of Food: Never True Current Housing: I Have Housing Concerned About Future Housing: No Difficulty Paying Gas/Electric Bills: No Difficulty Paying for Meds: No Currently Unemployed: No Education: Associate Degree Difficulty w/ Childcare or Family Care: No Spiritual care concerns: No Meds Home Medications and Allergies Home Medications Medication Instructions Recorded Confirmed Type carvedilol 6.25 mg tablet (Coreg) 12.5 mg PO BID 01/10/23 12/26/23 History losartan 100 1 tablet PO DAILY 01/10/23 12/26/23 History mg-hydrochlorothiazide 12.5 mg tablet (Hyzaar) tirzepatide (weight loss) 10 10 mg subcut WEEKLY 12/25/23 12/26/23 History mg/0.5 mL subcutaneous pen injector (Zepbound) albuterol sulfate 90 mcg/actuation 1 puff inhalation Q4H PRN 12/26/23 12/26/23 History aerosol inhaler Shortness Of Breath Or Wheezing duloxetine 20 mg capsule,delayed 20 mg PO BID 12/26/23 12/26/23 History release felodipine 10 mg tablet,extended 10 mg PO HS 12/26/23 12/26/23 History release 24 hr Allergies Allergy/AdvReac Type Severity Reaction Status Date / Time Sulfa (Sulfonamide Allergy Severe Rash Verified 12/25/23 23:45 Antibiotics) codeine Allergy Intermediate GI UPSET Verified 12/25/23 23:45 erythromycin base Allergy Unknown Unknown Verified 12/25/23 23:45 EMYCIN Allergy Severe RED,FLUSHED, Uncoded 01/10/23 15:47 PEELING SKIN Vital Signs Vital Signs - 24 hr 12/26/23 05:16 12/26/23 06:00 Temperature 97.9 F Pulse Rate 82 Respiratory Rate 20 Blood Pressure 144/71 H Pulse Oximetry 94 Oxygen Delivery Room Air Exam Narrative: GENERAL: Pleasant, in no acute distress. Well-nourished. - EYES: EOMI. Anicteric. - HENT: Moist mucous membranes. - LUNGS: Clear to auscultation bilateral ly, no wheezing, rhonchi, or rales. - CARDIOVASCULAR: Regular rate and rhyth m. No murmur. No JVD. Tachycardia - ABDOMEN: Soft, epigastric tender and n on-distended. No palpable masses. - EXTREMITIES: No edema. Peripheral puls es 2+. Non-tender. - NEUROLOGIC: No focal neurological defi cits. CN II-XII grossly intact. - PSYCHIATRIC: Awake, Alert and oriented x 3. Appropriate mood and affect. - SKIN: No rashes or lesions. Warm. - LYMPH: No cervical lymphadenopathy. H&P: Results Labs Labs: Short CBC 12/26/23 Range/Units 05:42 WBC 14.2 H (4.5-10.0) K/mm3 Hgb 15.2 H (12.0-15.0) g/dL Hct 49.4 H (37.0-47.0) % Plt Count 254 (150-375) k/mm3 [facility] 12/26/23 05:42 Sodium 136 L Potassium 4.2 Chloride 108 H Carbon Dioxide 21 L BUN 15 Creatinine 0.50 L Glucose 135 H Calcium 9.3 Assessment and Plan Assessment and plan (1) Acute pancreatitis: Code(s): K85.90 - Acute pancreatitis without necrosis or infection, unspecified Status: Acute (2) Elevated liver enzymes: Code(s): R74.8 - Abnormal levels of other serum enzymes Status: Acute (3) Essential hypertension: Code(s): I10 - Essential (primary) hypertension Status: Acute Plan Acute pancreatitis Patient has elevated total bilirubin, alk-phos, elevated liver enzymes, CT scan shows no gallstone,or duct dilatation. Ultrasound showed gallstone, and thickening of wall of gallbladder Optimize pain management Start fluid resuscitation with lactated Ringer Keep patient NPO Consult GI for evaluation treatment Acute cholecystitis with gallstone Ultrasound suggests acute cholecystitis with gallstone Start Zosyn IV Consult general surgeon for evaluation treatment Elevated liver enzymes Patient is found have elevated bilirubin, alk-phos, liver enzymes, Ultrasound and CT today show bile duct dilatation Patient passed gallstone Follow-up CMP Management per GI Asthma Stable Continue albuterol inhaler 1 puff q.4 hours p.r.n. Essential hypertension Patient is on carvedilol 12.5 mg b.i.d. p.o., felodipine 10 mg q.h.s. p.o. Will hold oral medications if patient cannot tolerate Sepsis Patient has hypothermia, leukocytosis, tachycardia tachypnea, meeting criteria of SIRS Possible due to acute cholecystitis Monitor vital signs, CBC and a sed infection A start Zosyn IV Follow-up blood culture Hospitalist MIPS Advance Care Plan I have confirmed that the patient's Advanced Care Plan is present, code status is documented, or surrogate decision maker is listed in patient medical record.: Yes Medication Reconciliation I have utilized all available resources to obtain, update and review the patients current medications (includes all prescriptions, OTC, herbals, cannabis, and nutritional supplements).: Yes
[2023-12-26] MEDS: HYDROmorphone HCL INJ (*CRX) 1 MG/ML SYR IV PUSH ×3 (08:13→18:15)
--- NOTE | 2023-12-26 08:15 | PC.NURSE ---
Patient off of unit to ultrasound
[2023-12-26] MEDS: DEXTROSE 5%/LACTATED RINGERS 1,000 ML 100 ML IV CONT ×2 (08:18→18:15)
--- NOTE | 2023-12-26 08:23 | PC.NURSE ---
Duplicate order on fluids. Spoke with Hospitalist Sigifredo. Okay to d/c LR and keep D5 LR running.
[2023-12-26 09:30] LABS: Magnesium 2.1 mg/dL (1.6-2.3); Phosphorus 2.9 mg/dL (2.5-4.5)
--- NOTE | 2023-12-26 09:34 | PM.CNGS ---
Assessment and Plan Assessment and plan (1) Acute pancreatitis: Code(s): K85.90 - Acute pancreatitis without necrosis or infection, unspecified Status: Acute Assessment and Plan: CT evidence of acute pancreatitis. Lipase >1500 on admission, as well as mildly elevated LFTs. CT showed no evidence of cholelithiasis or biliary dilation. RUQ ultrasound this morning showed cholelithiasis with wall thickening. Etiology likely biliary. She denies heavy alcohol use. Triglycerides normal. Discussed with the patient that we would recommend proceeding with a laparoscopic cholecystectomy once her pancreatitis has improved to prevent recurrent or future complications with her gallstones. We will continue to follow along to decide on timing of surgery. Repeat labs tomorrow morning. (2) Elevated liver enzymes: Code(s): R74.8 - Abnormal levels of other serum enzymes Status: Acute Assessment and Plan: LFTs elevated on admission with total bilirubin 1.4. RUQ US pending. Could be related to the pancreatitis or suggest passage of gallstone. GI consulted. (3) Asthma: Code(s): J45.909 - Unspecified asthma, uncomplicated Status: Acute (4) Essential hypertension: Code(s): I10 - Essential (primary) hypertension Status: Acute Plan I have discussed the patient's case and plan of care with Dr. Benavides. Thank you for allowing us to see the patient in consultation and we will continue to follow along with you. To note, she is also taking a GLP-1 receptor antagonist for weight loss and recommended to discuss possibly discontinuing this medication with her PCP who is prescribing the medication. History of Present Illness Consult details Consult date: 12/26/23 Reason for consult: other (Acute pancreatitis) Requesting physician: Eugene Fried MD Narrative: This is a 58-year-old woman with a history of hypertension and asthma, who we have been asked to see in surgical consultation for acute pancreatitis. She reports feeling bloated while eating pop tarts for breakfast yesterday. Throughout the day, she reportedly felt bloated and constipated. She then ate dinner around 6:00 p.m. and developed severe abdominal pain about an hour after eating. She describes her pain as starting in the epigastric area and radiating across the entire left side of her abdomen. She then developed nausea and had multiple episodes of vomiting. She tried taking Aleve without relief. Due to the unrelenting pain, she came into the ER for evaluation. Labs showed WBC count of 19,200, total bilirubin 1.4, AST 138, ALT 228, alk phos 158, and lipase 1500. CT scan of the abdomen pelvis showed findings consistent with acute pancreatitis. Gallbladder appears normal. Patient was admitted to the Hospitalist. GI was consulted. [facility] scheduled for this morning. She denies history of pancreatitis. She denies heavy alcohol use. Triglycerides normal on labs from last month. To note, she is taking tirzepatide for weight loss, which she started taking in July of 2023. She has had an increase in her dose monthly, but this month she has not been able to get her medication for the past few weeks due to limited availability of this dosage. She last had an injection three weeks ago. She has lost about 20 lbs in the past 4 months. Review of Systems Review of Systems: All systems reviewed & are unremarkable except as noted in HPI and below PMFSH Past Medical History Medical History Asthma Hypertension Surgical History Surgical History History of total abdominal hysterectomy and bilateral salpingo-oophorectomy Hx of tonsillectomy Family History Family History Mother Hypertension Family history of arthritis Family history of chronic obstructive pulmonary disease Family history of emphysema Father Carcinoma of colon Malignant neoplasm of prostate Sibling Family history of malignant neoplasm of uterus Social History Social History Smoking status: Never smoker Alcohol intake: current Drinks per week: 3 Substance use: never Do You Feel Safe in your Home?: No Lack of Transportation: No Lack of Food: Never True Current Housing: I Have Housing Concerned About Future Housing: No Difficulty Paying Gas/Electric Bills: No Difficulty Paying for Meds: No Currently Unemployed: No Education: Associate Degree Difficulty w/ Childcare or Family Care: No Spiritual care concerns: No Meds Home Medications and Allergies Home Medications Medication Instructions Recorded Confirmed Type carvedilol 6.25 mg tablet (Coreg) 12.5 mg PO BID 01/10/23 12/26/23 History losartan 100 1 tablet PO DAILY 01/10/23 12/26/23 History mg-hydrochlorothiazide 12.5 mg tablet (Hyzaar) tirzepatide (weight loss) 10 10 mg subcut WEEKLY 12/25/23 12/26/23 History mg/0.5 mL subcutaneous pen injector (Zepbound) albuterol sulfate 90 mcg/actuation 1 puff inhalation Q4H PRN 12/26/23 12/26/23 History aerosol inhaler Shortness Of Breath Or Wheezing duloxetine 20 mg capsule,delayed 20 mg PO BID 12/26/23 12/26/23 History release felodipine 10 mg tablet,extended 10 mg PO HS 12/26/23 12/26/23 History release 24 hr Allergies Allergy/AdvReac Type Severity Reaction Status Date / Time Sulfa (Sulfonamide Allergy Severe Rash Verified 12/25/23 23:45 Antibiotics) codeine Allergy Intermediate GI UPSET Verified 12/25/23 23:45 erythromycin base Allergy Unknown Unknown Verified 12/25/23 23:45 EMYCIN Allergy Severe RED,FLUSHED, Uncoded 01/10/23 15:47 PEELING SKIN Vital Signs Vital Signs - 24 hr 12/26/23 05:16 12/26/23 06:00 Temperature 97.9 F Pulse Rate 82 Respiratory Rate 20 Blood Pressure 144/71 H Pulse Oximetry 94 Oxygen Delivery Room Air Exam Const: General: comfortable and no acute distress Nutritional Appearance: average body habitus Orientation/consciousness: patient oriented x3 HENMT: Head: normocephalic and atraumatic Ears: hearing grossly normal bilaterally Mouth: Yes moist mucous membranes Eyes: General: appearance normal, both eyes and all related structures Pupils: Equal, round and reactive pupils present Neck: Neck: normal visual inspection and full ROM Resp: Effort & Inspection: no respiratory distress Auscultation: clear to auscultation bilaterally Cardio: Rate: regular rate Rhythm: regular rhythm Heart sounds: S1 normal heart sound present and S2 normal heart sound present Peripheral pulses: Peripheral pulses 2+ throughout GI: Inspection: non-distended, scar (lower midline scar) and no visible herniation GI Palp: Yes Soft to palpation, Yes Tenderness to palpation present (GI) (diffuse tenderness but more tender in the upper abdomen), Yes Guarding due to palpation present (GI) (across the upper abdomen), Yes No hepatosplenomegaly present and No Rebound tenderness present Auscultation: normal bowel sounds Skin: General skin exam: normal color Neuro: General: moves all extremities and no focal motor deficits Speech: normal speech Motor exam (neuro): 5/5 motor strength present throughout Extrem: General: normal to inspection and no edema Psych: Mental Status: mental status grossly normal Attitude: cooperative Insight: Good insight present (Psych) Judgement: Good judgement present (Psych) Results Labs 12/26/23 05:42 12/26/23 05:42 Labs: Abnormal lab results 12/26/23 Range/Units 05:42 WBC 14.2 H (4.5-10.0) K/mm3 RBC 5.66 H (4.2-5.4) M/mm3 Hgb 15.2 H (12.0-15.0) g/dL Hct 49.4 H (37.0-47.0) % MCHC 30.8 L (32-36) g/dl MPV 11.0 H (7.4-10.4) fl Neut % (Auto) 85.6 H (45.5-73.1) % Lymph % (Auto) 8.7 L (18.3-44.2) % [place] # (Auto) 0.7 H (0.1-0.6) K/mm3 Abs Immat Gran (auto) 0.07 H (0.00-0.031) K/mm3 Absolute Neuts (auto) 12.2 H (1.3-6.7) K/mm3 Sodium 136 L (137-145) mmol/L Chloride 108 H (98-107) mmol/L Carbon Dioxide 21 L (22-30) mmol/L Creatinine 0.50 L (0.7-1.0) mg/dL Glucose 135 H (65-110) mg/dL Diabetes panel 12/26/23 Range/Units 05:42 Sodium 136 L (137-145) mmol/L Potassium 4.2 (3.4-5.0) mmol/L Chloride 108 H (98-107) mmol/L Carbon Dioxide 21 L (22-30) mmol/L BUN 15 (7-17) mg/dL Creatinine 0.50 L (0.7-1.0) mg/dL Glucose 135 H (65-110) mg/dL Calcium 9.3 (8.4-10.2) mg/dL Calcium panel 12/26/23 12/26/23 Range/Units 05:42 08:58 Calcium 9.3 (8.4-10.2) mg/dL Phosphorus 3.0 2.9 (2.5-4.5) mg/dL Pituitary panel 12/26/23 Range/Units 05:42 Sodium 136 L (137-145) mmol/L Potassium 4.2 (3.4-5.0) mmol/L Chloride 108 H (98-107) mmol/L Carbon Dioxide 21 L (22-30) mmol/L BUN 15 (7-17) mg/dL Creatinine 0.50 L (0.7-1.0) mg/dL Glucose 135 H (65-110) mg/dL Calcium 9.3 (8.4-10.2) mg/dL Adrenal panel 12/26/23 Range/Units 05:42 Sodium 136 L (137-145) mmol/L Potassium 4.2 (3.4-5.0) mmol/L Chloride 108 H (98-107) mmol/L Carbon Dioxide 21 L (22-30) mmol/L BUN 15 (7-17) mg/dL Creatinine 0.50 L (0.7-1.0) mg/dL Glucose 135 H (65-110) mg/dL Calcium 9.3 (8.4-10.2) mg/dL All other labs normal. Imaging Additional studies: ITS Impressions Abdomen Ultrasound 12/26/23 08:53 IMPRESSION: Cholelithiasis with thickened wall which may raise the possibility of cholecystitis. Clinical correlation and follow-up advised. Otherwise, Unremarkable limited ultrasound of the abdomen.
--- NOTE | 2023-12-26 09:52 | P.CONGI_ITS ---
I, Kris Calixto MD, have provided a substantive portion of the care of this patient and discussed the patient with my Nurse Practitioner. I have reviewed any new relevant radiographic and laboratory results including medications. I agree with her documentation as noted below.?I personally performed the medical decision making and much of the history and exam for this encounter. briefly, here with new onset of upper abdominal pain, n/v. Diagnosed with GS pancreatitis and elevated liver enzymes, ultrasound showed cholelithiasis, she never had previous episode, only social drinker. Plan is to continue with iv fluids, pain control, npo, surgery on board- interval elizabeth once pancreatitis better. CT scan with normal bile duct size. Assessment and Plan Assessment and plan (1) Acute pancreatitis: Qualifiers: Pancreatitis type: idiopathic Acute pancreatitis complication: no infection or necrosis Qualified Code(s): K85.00 - Idiopathic acute pancreatitis without necrosis or infection Code(s): K85.90 - Acute pancreatitis without necrosis or infection, unspecified Status: Acute (2) Cholecystitis: Code(s): K81.9 - Cholecystitis, unspecified Status: Acute (3) Elevated liver enzymes: Code(s): R74.8 - Abnormal levels of other serum enzymes Status: Acute (4) Generalized abdominal pain: Code(s): R10.84 - Generalized abdominal pain Status: Acute (5) Nausea and vomiting: Qualifiers: Vomiting type: bilious vomiting Qualified Code(s): R11.14 - Bilious vomiting Code(s): R11.2 - Nausea with vomiting, unspecified Status: Acute (6) Decreased appetite: Code(s): R63.0 - Anorexia Status: Acute (7) Constipation: Qualifiers: Constipation type: drug induced constipation Qualified Code(s): K59.03 - Drug induced constipation Code(s): K59.00 - Constipation, unspecified Status: Acute Plan 1. Acute pancreatitis / generalized abdominal pain / nausea / vomiting / decreased appetite / weight loss/elevated LFT's/cholecystitis: CT findings consistent with acute pancreatitis, with peripancreatic fluid and inflammatory changes. Cholelithiasis with thickened wall which may raise the possibility of cholecystitis. Per patient symptoms started yesterday around 1800 after eating dinner. She reports severe generalized abdominal pain that she describes as a spasming sensation, pain has not improved since admission but spasms have improved with pain medication. Several episodes of vomiting prior to admission, no nausea or vomiting since admission. Recent initiation of weight loss medication, with increased dose to 10 mg weekly, last taken on 12/04/2023. Labs on admission showed WBC's 14, Hgb 15, Hct 49, MCV 87, platelets 254. Total bili 1.4, AST 138, ALT 228, Alk Phos 158, albumin 3.5, INR 1.0. Lipase significantly elevated at greater than 1500. Triglycerides last checked 12/13/2023 was normal at 124. No prior Hx of pancreatitis, gallbladder issues or known LFT elevation. DDx: gallstone pancreatitis vs medication-induced vs idiopathic * Supportive care with pain management, antiemetics and IV fluids * Trend lipase and liver function tests * No signs of biliary obstruction or dilation. No indication for ERCP at this time * Further recommendations per surgery 2. Constipation/CRC screening: Patient has never had a colonoscopy. Family Hx negative for CRC or IBD. Patient with chronic constipation, typically managed with milk of magnesia or fiber gummies with good effect. On her current home regimen she is having daily BM's that are formed and non urgent. Denies any rectal bleeding. Patient was previously using hydrocodone on a rare as needed basis for hip pain. Patient has been on Tirzepatide which has been contributing to her constipation. * Advised patient to continue current regimen as needed for constipation * patient advised to follow up with me outpatient for further management and to discuss outpatient colonoscopy Thank you very much for allowing me to share in the care of this very nice patient. This report may have been done utilizing a voice recognition system. Attempts have been made to correct errors. However, there may be uncorrected grammatical, spelling, and recognition errors present. GI Consult Note Consult date/time: 12/26/23 09:52 Reason for consult: Pancreatitis HPI: This is a pleasant 58 year old female with a past medical surgical history of asthma, hypertension, hysterectomy, hypothyroidism. She presented to [place] ER room 12/25/2023 with complaints of generalized abdominal pain and was then transferred to [facility]. GI consulted for acute pancreatitis. The pain started after eating pizza around 6 pm the night prior. She describes the pain as worse than labor pain , with severe spasms. The pain has not improved since admission but spasms have decreased. She had several episodes of vomiting the night prior to admission but denies any nausea or vomiting since admission. Denies odynophagia and dysphagia. Denies heartburn symptoms. Reports decreased appetite since the onset of pain. She has lost approximately 20 pounds over the past 4 months while on weight loss medication Tirzepatide, with current weight of 193 pounds. She has a history of constipation, typically managed with milk of magnesia or fiber gummies, which usually results in regular daily bowel movements. Last bowel movement was sometime yesterday, formed but small amount. Denies blood in stool or black stools. Reports one episode of diarrhea last Monday associated with cramping. Takes Aleve once daily, increased to twice daily with severe pain, for the past month. Previously took hydrocodone- acetaminophen prescribed in October, but has not taken in weeks. Denies use of aspirin or blood thinners. Occasionally drinks alcohol socially, up to 3 drinks. Denies marijuana use. Denies family history of GI cancer. No prior history of pancreatitis or gallbladder issues. No known history of elevated liver enzymes. ENDOSCOPY HISTORY: Patient has never had an EGD or colonoscopy LABS AND STOOL STUDIES: Labs 12/26/2023 BMP: Sodium 136, potassium 4.2, BUN 15, creatinine 0.50, GFR greater than 60 CBC: WBC 14, HGB 15, HCT 49, MCV 87, platelets 254, INR 1.0 LFT's: Total bi lirubin 1.4, AST 138, ALT 228, alkaline phosphatase 158 Lactic acid 1.6, calcium 9.3, phosphorus 3.0, magnesium 2.1, albumin 3.5, triglycerides 124 on 12/13/2023, lipase greater than 1500 No recent stool studies available at today's visit IMAGING: Abdominal ultrasound 12/26/2023 FINDINGS: LIVER: Normal size and echotexture. No focal hepatic lesions or perihepatic fluid collections are identified. Portal vein flow is normal. GALLBLADDER: Multiple small stones are noted. No evidence for sludge or pericholecystic fluid collections. The wall thickness is 5 mm. A negative sonographic Oropeza's sign was noted. BILIARY DUCTS: No evidence for intra or extrahepatic biliary dilation. Common bile duct measures 5.5 mm in diameter which is within normal limits. PANCREAS: Not demonstrated. FREE FLUID: None. IMPRESSION: Cholelithiasis with thickened wall which may raise the possibility of cholecystitis. Clinical correlation and follow-up advised. Otherwise, Unremarkable limited ultrasound of the abdomen. CT abd/pelvis w/contrast 12/26/2023: Peripancreatic fluid and inflammatory change with associated small amount of pelvic ascites, as detailed above. Findings are consistent with acute pancreatitis. No evidence for pancreatic necrosis or pseudocyst. 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 CT abd/pelvis w/contrast 01/10/2023: No acute abdominopelvic process detected. Bilateral renal angiomyolipomas, m easuring up to 2.9 cm on the left, for which follow-up imaging recommended in 5 years. No follow-up recommended for the right-sided lesion. Review of Systems Constitutional: Constitutional: Reports as per HPI ENT: Reports as per HPI Cardiovascular: Cardiovascular: Reports as per HPI, Denies chest pain, Denies leg edema, Denies palpitations and Denies dyspnea Respiratory: Respiratory: Denies cough and Denies dyspnea Gastrointestinal: Gastrointestinal: Reports as per HPI Musculoskeletal: Musculoskeletal: Reports as per HPI Integumentary/Breasts: Skin/Breast: Reports as per HPI Psychiatric: Psychiatric: Reports as per HPI Endocrine: Endocrine: Reports no additional endocrine complaints Hematologic/Lymphatic: Hematologic/Lymphatic: Reports no additional hematologic/lymphatic complaints [facility] Past Medical History Medical History Asthma Hypertension Surgical History Surgical History History of total abdominal hysterectomy and bilateral salpingo-oophorectomy Hx of tonsillectomy Family History Family History Mother Hypertension Family history of arthritis Family history of chronic obstructive pulmonary disease Family history of emphysema Father Carcinoma of colon Malignant neoplasm of prostate Sibling Family history of malignant neoplasm of uterus Social History Social History Smoking status: Never smoker Alcohol intake: current Drinks per week: 3 Substance use: never Do You Feel Safe in your Home?: No Lack of Transportation: No Lack of Food: Never True Current Housing: I Have Housing Concerned About Future Housing: No Difficulty Paying Gas/Electric Bills: No Difficulty Paying for Meds: No Currently Unemployed: No Education: Associate Degree Difficulty w/ Childcare or Family Care: No Spiritual care concerns: No Meds Home Medications and Allergies Home Medications Medication Instructions Recorded Confirmed Type carvedilol 6.25 mg tablet (Coreg) 12.5 mg PO BID 01/10/23 12/26/23 History losartan 100 1 tablet PO DAILY 01/10/23 12/26/23 History mg-hydrochlorothiazide 12.5 mg tablet (Hyzaar) tirzepatide (weight loss) 10 10 mg subcut WEEKLY 12/25/23 12/26/23 History mg/0.5 mL subcutaneous pen injector (Zepbound) albuterol sulfate 90 mcg/actuation 1 puff inhalation Q4H PRN 12/26/23 12/26/23 History aerosol inhaler Shortness Of Breath Or Wheezing duloxetine 20 mg capsule,delayed 20 mg PO BID 12/26/23 12/26/23 History release felodipine 10 mg tablet,extended 10 mg PO HS 12/26/23 12/26/23 History release 24 hr Allergies Allergy/AdvReac Type Severity Reaction Status Date / Time Sulfa (Sulfonamide Allergy Severe Rash Verified 12/25/23 23:45 Antibiotics) codeine Allergy Intermediate GI UPSET Verified 12/25/23 23:45 erythromycin base Allergy Unknown Unknown Verified 12/25/23 23:45 EMYCIN Allergy Severe RED,FLUSHED, Uncoded 01/10/23 15:47 PEELING SKIN Vital Signs Vital Signs - 24 hr 12/26/23 05:16 12/26/23 06:00 Temperature 97.9 F Pulse Rate 82 Respiratory Rate 20 Blood Pressure 144/71 H Pulse Oximetry 94 Oxygen Delivery Room Air Exam Const: General: cooperative, healthy appearing, no acute distress, well developed and uncomfortable Orientation/consciousness: oriented to person, oriented to place, oriented to time and patient oriented x3 HENMT: Head: normal to inspection, normocephalic and atraumatic Mouth: Yes Normal oral and palatal mucosa present and Yes moist mucous membranes Eyes: General: appearance normal, both eyes and all related structures Conjunctivae: conjunctivae normal Sclera: sclerae normal Pupils: Equal, round and reactive pupils present Neck: Neck: normal visual inspection Chest: Chest palpation & inspection: normal inspection of the chest Resp: Effort & Inspection: normal respiratory effort and able to speak in complete sentences Auscultation: clear to auscultation bilaterally Cardio: Jugular venous distension: no JVD Rate: regular rate Rhythm: regular rhythm Heart sounds: S1 normal heart sound present and S2 normal heart sound present GI: Inspection: normal to inspection GI Palp: Yes Soft to palpation, No Firmness to palpation present (GI), Yes Tenderness to palpation present (GI), Yes Guarding due to palpation present (GI) and Yes No hepatosplenomegaly present Auscultation: normal bowel sounds Rectal Exam: deferred Skin: General skin exam: normal color and no rashes or lesions noted Neuro: General: oriented to person, oriented to place, oriented to time and pa tient oriented x3 Cranial nerves: Yes Equal, round and reactive pupils pr esent Speech: normal speech Extrem: General: normal to inspection and no clubbing, cyanosis or edema Psych: Appearance: grossly normal and well kempt Affect: normal affect Results Labs 12/26/23 05:42 12/26/23 05:42 Labs: Short CBC 12/26/23 Range/Units 05:42 WBC 14.2 H (4.5-10.0) K/mm3 Hgb 15.2 H (12.0-15.0) g/dL Hct 49.4 H (37.0-47.0) % Plt Count 254 (150-375) k/mm3 [facility] 12/26/23 05:42 Sodium 136 L Potassium 4.2 Chloride 108 H Carbon Dioxide 21 L BUN 15 Creatinine 0.50 L Glucose 135 H Calcium 9.3
[2023-12-26] MEDS: ENOXAPARIN 40 MG/0.4 ML SYRINGE SUB-Q (11:37)
[2023-12-26 14:00] VITALS: BP 129/56; PULSE 94; RESP 16; TEMP 37.4; O2SAT 94
[2023-12-26] MEDS: FELODIPINE 5 MG TAB CR 10 MG PO (20:04)
[2023-12-26 20:05] VITALS: PULSE 106
[2023-12-26] MEDS: carvediloL 12.5 MG TABLET PO (20:05)
[2023-12-26 21:33] VITALS: BP 122/73; PULSE 110; RESP 18; TEMP 36.6; O2SAT 93
[2023-12-27] VITALS (8 sets, daily range): BP systolic 101–149; BP diastolic 61–62; PULSE 80–116; RESP 16–20; TEMP 36.6–38.3; O2SAT 93–97
[2023-12-27] MEDS: DEXTROSE 5%/LACTATED RINGERS 1,000 ML 100 ML IV CONT ×2 (02:56→17:53)
[2023-12-27] MEDS: HYDROmorphone HCL INJ (*CRX) 1 MG/ML SYR IV PUSH ×5 (02:56→23:53)
[2023-12-27 05:34] LABS: Hematocrit 40.6 % (37.0-47.0); Hemoglobin 12.9 g/dL (12.0-15.0); Mean Corpuscular HGB Conc 31.8 g/dl (32-36); Mean Corpuscular Hemoglobin 27.4 pg (26-34); Mean Corpuscular Volume 86.2 fl (80-100); Mean Platelet Volume 11.1 fl (7.4-10.4); Platelet Count Result 235 k/mm3 (150-375); Red Blood Count 4.71 M/mm3 (4.2-5.4); Red Cell Distribution Width 14.1 % (11.5-14.5)
[2023-12-27 05:46] LABS: Alanine Aminotransferase 80 U/L (6-35); Albumin Level 2.8 g/dL (3.5-5.1); Alkaline Phosphatase 68 U/L (38-126); Anion Gap 5 mmol/L (4-12); Aspartate Amino Transferase 39 U/L (14-36); Bilirubin,Total 1.3 mg/dL (0.2-1.3); Blood Urea Nitrogen 15 mg/dL (7-17); Calcium 8.7 mg/dL (8.4-10.2); Carbon Dioxide 24 mmol/L (22-30); Chloride 106 mmol/L (98-107); Estimated CRCL calculation 114 ml/min; Estimated Glomerular Filt Rate > 60; Glucose 120 mg/dL (65-110); Potassium 3.9 mmol/L (3.4-5.0); Sodium 135 mmol/L (137-145)
[2023-12-27 05:58] LABS: Phosphorus 2.4 mg/dL (2.5-4.5)
[2023-12-27 07:32] LABS: Lipase 2171 U/L (23-300)
[2023-12-27] MEDS: carvediloL 12.5 MG TABLET PO ×2 (09:38→20:13)
[2023-12-27] MEDS: ENOXAPARIN 40 MG/0.4 ML SYRINGE SUB-Q (09:38)
[2023-12-27] MEDS: DULoxetine HCL 20 MG CAPSULE.DR PO ×2 (09:38→17:53)
--- NOTE | 2023-12-27 10:19 | P.PNIM_ITS ---
Progress Note: A&P Assessment and Plan (1) Acute pancreatitis: Qualifiers: Acute pancreatitis complication: no infection or necrosis Pancreatitis type: idiopathic Qualified Code(s): K85.00 - Idiopathic acute pancreatitis without necrosis or infection Code(s): K85.90 - Acute pancreatitis without necrosis or infection, unspecified Status: Inactive (2) Elevated liver enzymes: Code(s): R74.8 - Abnormal levels of other serum enzymes Status: Acute (3) Essential hypertension: Code(s): I10 - Essential (primary) hypertension Status: Acute Plan Acute pancreatitis Patient has elevated total bilirubin, alk-phos, elevated liver enzymes, CT scan shows no gallstone,or duct dilatation. Ultrasound showed gallstone, and thickening of wall of gallbladder Optimize pain management Start fluid resuscitation with lactated Ringer Keep patient NPO Consult GI for evaluation treatment: Diagnosed with GS pancreatitis and elevated liver enzymes, ultrasound showed cholelithiasis, she never had previous episode, only social drinker. Plan is to continue with iv fluids, pain control, npo, surgery on board- interval elizabeth once pancreatitis better. CT scan with normal bile duct size. Acute cholecystitis with gallstone Ultrasound suggests acute cholecystitis with gallstone Start Zosyn IV Consult general surgeon for evaluation treatment NOte reviewed: cholelithiasis does appear to be the likely cause of her pancreatitis. Will continue to allow pancreatitis to resolve and follow along with patient. Once pancreatitis has resolved, will plan to proceed with laparoscopic cholecystectomy with cholangiography. Elevated liver enzymes Patient is found have elevated bilirubin, alk-phos, liver enzymes, Ultrasound and CT today show bile duct dilatation Patient passed gallstone Follow-up CMP Management per GI Asthma Stable Continue albuterol inhaler 1 puff q.4 hours p.r.n. Essential hypertension Patient is on carvedilol 12.5 mg b.i.d. p.o., felodipine 10 mg q.h.s. p.o. Will hold oral medications if patient cannot tolerate BP reviewed- stable Sepsis Patient has hypothermia, leukocytosis, tachycardia tachypnea, meeting criteria of SIRS Possible due to acute cholecystitis Monitor vital signs, CBC and a sed infection A start Zosyn IV Follow-up blood culture Time Spent With Patient Time with patient: Greater than 35 minutes Subjective Date/time seen: 12/27/23 10:19 Interval history: Abdomen pain Narrative retrieved from H/P: 58 years old with history of hypertension, hypothyroidism, asthma present ED with a chief complaint of abdomen pain. Patient started abdomen pain yesterday afternoon, patient has diffuse abdomen pain since yesterday morning. The pain is getting worse gradually, patient also has nausea vomiting. Patient denies diarrhea. Patient denies chest pain, shortness of breath, cough cough, dysuria. Upon arrival to ED, patient has hypothermia 36 0.6, tachycardia tachypnea, blood pressure stable, no O2 desaturation on room air, lab showed leukocytosis 19,200, elevated total bilirubin 1.4, elevated liver enzymes and alk-phos, lipase move the 1500. CT showed acute pancreatitis. no evidence for pancreatic necrosis or pseudocyst. liver, spleen, gallbladder, adrenals and right kidney are within normal limits. Repeat ultrasound suggest acute cholecystitis with gallstone Gen surgery was consulted, GI was consulted Pt is seen and examined. she is comfortable, reports few days wit no bm but doesnot want any miralax. Pian is controlled with iv meds. Review of Systems Cardiovascular: Cardiovascular: Denies chest pain Respiratory: Respiratory: Denies chest congestion Gastrointestinal: Gastrointestinal: Reports abdominal pain, Reports nausea and Denies vomiting Musculoskeletal: Musculoskeletal: Denies back pain Exam Narrative: GENERAL: Pleasant, in no acute distress. Well-nourished.in bed - EYES: EOMI. Anicteric. - HENT: Moist mucous membranes. - LUNGS: Clear to auscultation bilateral ly, no wheezing, rhonchi, or rales. - CARDIOVASCULAR: Regular rate and rhyth m. No murmur. No JVD. Tachycardia - ABDOMEN: Soft, epigastric tender and n on-distended. No palpable masses. - EXTREMITIES: No edema. Peripheral puls es 2+. Non-tender. - NEUROLOGIC: No focal neurological defi cits. CN II-XII grossly intact. - PSYCHIATRIC: Awake, Alert and oriented x 3. Appropriate mood and affect. - SKIN: No rashes or lesions. Warm. - LYMPH: No cervical lymphadenopathy. Objective Data Vital Signs Vital Signs: Vital Signs - 24 hr 12/26/23 14:00 12/26/23 20:05 12/26/23 21:33 Temperature 99.3 F 98 F Pulse Rate 94 106 H 110 H Respiratory Rate 16 18 Blood Pressure 129/56 L 122/73 Pulse Oximetry 94 93 12/27/23 06:00 12/27/23 09:38 Temperature 98.8 F Pulse Rate 87 87 Respiratory Rate 18 Blood Pressure 101/61 Pulse Oximetry 97 Intake/Output Intake/Output: Intake & Output 12/24/23 12/25/23 12/26/23 12/27/23 23:59 23:59 23:59 23:59 Intake Total 1520 1000 Balance 1520 1000 Meds/Results Medications: Active Medications Generic Name Dose Route Start Last Admin Trade Name Freq PRN Reason Stop Dose Admin Albuterol 1 puff 12/26/23 05:33 Albuterol Sulfate (*Sp) Aerosol 1 Puff INHALATION Q4HRT PRN Shortness Of Breath Or Wheezing Carvedilol 12.5 mg 12/26/23 09:00 12/27/23 09:38 Carvedilol 12.5 Mg Tablet PO 12.5 mg Q12HR ANGEL Administration Duloxetine HCl 20 mg 12/26/23 09:00 12/27/23 09:38 Duloxetine Hcl 20 Mg Capsule.Dr PO 20 mg BID ANGEL Administration Enoxaparin Sodium 40 mg 12/26/23 09:00 12/27/23 09:38 Enoxaparin 40 Mg/0.4 Ml Syringe SUB-Q 40 mg DAILY ANGEL Administration Felodipine 10 mg 12/26/23 21:00 12/26/23 20:04 Felodipine 5 Mg Tab Cr PO 01/25/24 20:59 10 mg HS ANGEL Administration Hydromorphone HCl 1 mg 12/26/23 05:34 12/27/23 09:38 Hydromorphone Hcl Inj (*Crx) 1 Mg/Ml Syr IV PUSH 1 mg Q3H PRN Administration Pain Rated 7-10 Hydromorphone HCl 0.5 mg 12/26/23 08:11 Hydromorphone Hcl Inj (*Crx) 1 Mg/Ml Syr IV PUSH Q3H PRN Chest Pain Dextrose/Lactated Ringer's 1,000 mls @ 100 mls/hr 12/26/23 05:35 12/27/23 02:56 Dextrose 5%/Lactated Ringers IV CONT 100 mls/hr .Q10H ANGEL Administration Metoclopramide HCl 10 mg 12/26/23 08:11 Metoclopramide Hcl Inj 10 Mg/2 Ml Vial IV PUSH Q6H PRN Nausea And Vomiting Ondansetron HCl 4 mg 12/26/23 05:34 Ondansetron Inj 4 Mg/2 Ml Vial IV PUSH Q6H PRN Nausea And Vomiting Radiology Results: ITS Impressions Abdomen Ultrasound 12/26/23 08:53 IMPRESSION: Cholelithiasis with thickened wall which may raise the possibility of cholecystitis. Clinical correlation and follow-up advised. Otherwise, Unremarkable limited ultrasound of the abdomen. Labs Labs: Laboratory Results - last 24 hr 12/27/23 05:20 WBC 15.0 H RBC 4.71 Hgb 12.9 Hct 40.6 MCV 86.2 MCH 27.4 MCHC 31.8 L RDW 14.1 Plt Count 235 MPV 11.1 H Sodium 135 L Potassium 3.9 Chloride 106 Carbon Dioxide 24 Anion Gap 5 BUN 15 Creatinine 0.50 L Estim Creat Clear Calc 114 Estimated GFR > 60 Glucose 120 H Calcium 8.7 Phosphorus 2.4 L Magnesium 2.0 Total Bilirubin 1.3 AST 39 H ALT 80 H Alkaline Phosphatase 68 Total Protein 6.0 L Albumin 2.8 L Lipase 2171 H
--- NOTE | 2023-12-27 15:26 | P.PNGS_ITS ---
Progress Note: A&P Assessment and Plan (1) Acute pancreatitis: Qualifiers: Acute pancreatitis complication: no infection or necrosis Pancreatitis type: idiopathic Qualified Code(s): K85.00 - Idiopathic acute pancreatitis without necrosis or infection Code(s): K85.90 - Acute pancreatitis without necrosis or infection, unspecified Status: Inactive Assessment and Plan: * Acute biliary pancreatitis. Lipase up slightly to 2,000 today. Still having abdominal pain. * Continue IV fluids and bowel rest * Repeat labs tomorrow (2) Cholelithiasis: Code(s): K80.20 - Calculus of gallbladder without cholecystitis without obstruction Status: Acute Assessment and Plan: * Will plan for interval laparoscopic cholecystectomy once pancreatitis improves. I discussed the details of the procedure, risks, benefits, alternatives, and recovery with the patient in detail. All questions answered. (3) Elevated liver enzymes: Code(s): R74.8 - Abnormal levels of other serum enzymes Status: Acute Assessment and Plan: * LFTs trending down, continue to monitor Plan I have discussed the patient's case and plan of care with Dr. Benavides. Subjective Subjective Date/Time Seen: 12/27/23 15:26 Patient reports: still having pain and nausea Interval history: Patient is still having a lot of abdominal pain. Denies improvement. She reports her pain is now across her entire abdomen. She has had some intermittent nausea, but no vomiting. She is passing flatus, but no BM since Monday. Exam Const: General: comfortable and no acute distress Orientation/consciousness: patient oriented x3 GI: Inspection: non-distended GI Palp: Yes Soft to palpation, Yes Tenderness to palpation present (GI) (Diffusely tender), No Guarding due to palpation present (GI) and No Rebound tenderness present Auscultation: normal bowel sounds Objective Data Vital Signs Vital Signs: Vital Signs - 24 hr 12/26/23 20:05 12/26/23 21:33 12/27/23 06:00 Temperature 98 F 98.8 F Pulse Rate 106 H 110 H 87 Respiratory Rate 18 18 Blood Pressure 122/73 101/61 Pulse Oximetry 93 97 Oxygen Delivery 12/27/23 09:38 12/27/23 09:38 12/27/23 14:15 Temperature 97.8 F Pulse Rate 87 80 Respiratory Rate 16 Blood Pressure 130/62 Pulse Oximetry 93 Oxygen Delivery Room Air Intake/Output Intake/Output: Intake & Output 12/24/23 12/25/23 12/26/23 12/27/23 23:59 23:59 23:59 23:59 Intake Total 1520 1000 Balance 1520 1000 Meds/Results Medications: Active Medications Generic Name Dose Route Start Last Admin Trade Name Freq PRN Reason Stop Dose Admin Albuterol 1 puff 12/26/23 05:33 Albuterol Sulfate (*Sp) Aerosol 1 Puff INHALATION Q4HRT PRN Shortness Of Breath Or Wheezing Carvedilol 12.5 mg 12/26/23 09:00 12/27/23 09:38 Carvedilol 12.5 Mg Tablet PO 12.5 mg Q12HR ANGEL Administration Duloxetine HCl 20 mg 12/26/23 09:00 12/27/23 09:38 Duloxetine Hcl 20 Mg Capsule.Dr PO 20 mg BID ANGEL Administration Enoxaparin Sodium 40 mg 12/26/23 09:00 12/27/23 09:38 Enoxaparin 40 Mg/0.4 Ml Syringe SUB-Q 40 mg DAILY ANGEL Administration Felodipine 10 mg 12/26/23 21:00 12/26/23 20:04 Felodipine 5 Mg Tab Cr PO 01/25/24 20:59 10 mg HS ANGEL Administration Hydromorphone HCl 1 mg 12/26/23 05:34 12/27/23 13:41 Hydromorphone Hcl Inj (*Crx) 1 Mg/Ml Syr IV PUSH 1 mg Q3H PRN Administration Pain Rated 7-10 Hydromorphone HCl 0.5 mg 12/26/23 08:11 Hydromorphone Hcl Inj (*Crx) 1 Mg/Ml Syr IV PUSH Q3H PRN Chest Pain Dextrose/Lactated Ringer's 1,000 mls @ 100 mls/hr 12/26/23 05:35 12/27/23 13:42 Dextrose 5%/Lactated Ringers IV CONT Not Given .Q10H ANGEL Metoclopramide HCl 10 mg 12/26/23 08:11 Metoclopramide Hcl Inj 10 Mg/2 Ml Vial IV PUSH Q6H PRN Nausea And Vomiting Ondansetron HCl 4 mg 12/26/23 05:34 Ondansetron Inj 4 Mg/2 Ml Vial IV PUSH Q6H PRN Nausea And Vomiting Radiology Results: ITS Impressions Abdomen Ultrasound 12/26/23 08:53 IMPRESSION: Cholelithiasis with thickened wall which may raise the possibility of cholecystitis. Clinical correlation and follow-up advised. Otherwise, Unremarkable limited ultrasound of the abdomen. Labs Labs: Laboratory Results - last 24 hr 12/27/23 05:20 WBC 15.0 H RBC 4.71 Hgb 12.9 Hct 40.6 MCV 86.2 MCH 27.4 MCHC 31.8 L RDW 14.1 Plt Count 235 MPV 11.1 H Sodium 135 L Potassium 3.9 Chloride 106 Carbon Dioxide 24 Anion Gap 5 BUN 15 Creatinine 0.50 L Estim Creat Clear Calc 114 Estimated GFR > 60 Glucose 120 H Calcium 8.7 Phosphorus 2.4 L Magnesium 2.0 Total Bilirubin 1.3 AST 39 H ALT 80 H Alkaline Phosphatase 68 Total Protein 6.0 L Albumin 2.8 L Lipase 2171 H
--- NOTE | 2023-12-27 15:42 | WPDGIPROGNO ---
Progress Note: A&P Assessment and Plan (1) Gallstone pancreatitis: Code(s): K85.10 - Biliary acute pancreatitis without necrosis or infection Status: Acute Assessment and Plan: feeling better, liver enzymes coming down hgb 16 on admission after iv fluids down to 13 normal bile duct but cholelithiasis, will need interval elizabeth liquid diet for now (2) Elevated LFTs: Code(s): R79.89 - Other specified abnormal findings of blood chemistry Status: Acute (3) Nausea and vomiting: Qualifiers: Vomiting type: bilious vomiting Qualified Code(s): R11.14 - Bilious vomiting Code(s): R11.2 - Nausea with vomiting, unspecified Status: Acute Assessment and Plan: this has improved (4) Generalized abdominal pain: Code(s): R10.84 - Generalized abdominal pain Status: Acute Assessment and Plan: better but needs pain meds (5) Cholelithiasis: Code(s): K80.20 - Calculus of gallbladder without cholecystitis without obstruction Status: Acute Subjective Date/time seen: 12/27/23 15:42 Interval history: pain med is controlling her discomfort, she is feeling better Review of Systems Review of Systems: All systems reviewed & are unremarkable except as noted in HPI and below Exam Const: General: comfortable and no acute distress Orientation/consciousness: patient oriented x3 HENMT: Face/Nose/Sinus: Normal nares present Eyes: Sclera: sclerae normal Neck: Neck: supple Resp: Effort & Inspection: normal respiratory effort Cardio: Rate: regular rate GI: Inspection: non-distended GI Palp: Yes Soft to palpation, Yes Tenderness to palpation present (GI) (Diffusely tender but better), No Guarding due to palpation present (GI) and No Rebound tenderness present Auscultation: normal bowel sounds Skin: General skin exam: normal color Neuro: Speech: normal speech Motor exam (neuro): 5/5 motor strength present throughout Extrem: General: normal to inspection Psych: Mental Status: mental status grossly normal Objective Data Vital Signs Vital Signs: Vital Signs - 24 hr 12/26/23 20:05 12/26/23 21:33 12/27/23 06:00 Temperature 98 F 98.8 F Pulse Rate 106 H 110 H 87 Respiratory Rate 18 18 Blood Pressure 122/73 101/61 Pulse Oximetry 93 97 Oxygen Delivery 12/27/23 09:38 12/27/23 09:38 12/27/23 14:15 Temperature 97.8 F Pulse Rate 87 80 Respiratory Rate 16 Blood Pressure 130/62 Pulse Oximetry 93 Oxygen Delivery Room Air Intake/Output Intake/Output: Intake & Output 12/24/23 12/25/23 12/26/23 12/27/23 23:59 23:59 23:59 23:59 Intake Total 1520 1000 Balance 1520 1000 Meds/Results Medications: Active Medications Generic Name Dose Route Start Last Admin Trade Name Freq PRN Reason Stop Dose Admin Albuterol 1 puff 12/26/23 05:33 Albuterol Sulfate (*Sp) Aerosol 1 Puff INHALATION Q4HRT PRN Shortness Of Breath Or Wheezing Carvedilol 12.5 mg 12/26/23 09:00 12/27/23 09:38 Carvedilol 12.5 Mg Tablet PO 12.5 mg Q12HR ANGEL Administration Duloxetine HCl 20 mg 12/26/23 09:00 12/27/23 09:38 Duloxetine Hcl 20 Mg Capsule.Dr PO 20 mg BID ANGEL Administration Enoxaparin Sodium 40 mg 12/26/23 09:00 12/27/23 09:38 Enoxaparin 40 Mg/0.4 Ml Syringe SUB-Q 40 mg DAILY ANGEL Administration Felodipine 10 mg 12/26/23 21:00 12/26/23 20:04 Felodipine 5 Mg Tab Cr PO 01/25/24 20:59 10 mg HS ANGEL Administration Hydromorphone HCl 1 mg 12/26/23 05:34 12/27/23 13:41 Hydromorphone Hcl Inj (*Crx) 1 Mg/Ml Syr IV PUSH 1 mg Q3H PRN Administration Pain Rated 7-10 Hydromorphone HCl 0.5 mg 12/26/23 08:11 Hydromorphone Hcl Inj (*Crx) 1 Mg/Ml Syr IV PUSH Q3H PRN Chest Pain Dextrose/Lactated Ringer's 1,000 mls @ 100 mls/hr 12/26/23 05:35 12/27/23 13:42 Dextrose 5%/Lactated Ringers IV CONT Not Given .Q10H ANGEL Metoclopramide HCl 10 mg 12/26/23 08:11 Metoclopramide Hcl Inj 10 Mg/2 Ml Vial IV PUSH Q6H PRN Nausea And Vomiting Ondansetron HCl 4 mg 12/26/23 05:34 Ondansetron Inj 4 Mg/2 Ml Vial IV PUSH Q6H PRN Nausea And Vomiting Radiology Results: ITS Impressions Abdomen Ultrasound 12/26/23 08:53 IMPRESSION: Cholelithiasis with thickened wall which may raise the possibility of cholecystitis. Clinical correlation and follow-up advised. Otherwise, Unremarkable limited ultrasound of the abdomen. Labs Labs: Laboratory Results - last 24 hr 12/27/23 05:20 WBC 15.0 H RBC 4.71 Hgb 12.9 Hct 40.6 MCV 86.2 MCH 27.4 MCHC 31.8 L RDW 14.1 Plt Count 235 MPV 11.1 H Sodium 135 L Potassium 3.9 Chloride 106 Carbon Dioxide 24 Anion Gap 5 BUN 15 Creatinine 0.50 L Estim Creat Clear Calc 114 Estimated GFR > 60 Glucose 120 H Calcium 8.7 Phosphorus 2.4 L Magnesium 2.0 Total Bilirubin 1.3 AST 39 H ALT 80 H Alkaline Phosphatase 68 Total Protein 6.0 L Albumin 2.8 L Lipase 2171 H
[2023-12-27] MEDS: ALBUTEROL SULFATE (*SP) AEROSOL 1 PUFF INHALATION (18:45)
[2023-12-27] MEDS: FELODIPINE 5 MG TAB CR 10 MG PO (20:13)
[2023-12-27] MEDS: ACETAMINOPHEN 500 MG TABLET 1000 MG PO (20:38)
[2023-12-28] VITALS (9 sets, daily range): BP systolic 127–139; BP diastolic 50–74; PULSE 84–90; RESP 18–20; TEMP 36.7–38.8; O2SAT 93–94
[2023-12-28] MEDS: DEXTROSE 5%/LACTATED RINGERS 1,000 ML 100 ML IV CONT (03:31)
[2023-12-28] MEDS: ACETAMINOPHEN 500 MG TABLET 1000 MG PO ×2 (04:43→18:02)
[2023-12-28 06:02] LABS: Hematocrit 37.9 % (37.0-47.0); Hemoglobin 12.3 g/dL (12.0-15.0); Mean Corpuscular HGB Conc 32.5 g/dl (32-36); Mean Corpuscular Hemoglobin 27.8 pg (26-34); Mean Corpuscular Volume 85.7 fl (80-100); Mean Platelet Volume 11.2 fl (7.4-10.4); Platelet Count Result 211 k/mm3 (150-375); Red Blood Count 4.42 M/mm3 (4.2-5.4); Red Cell Distribution Width 13.8 % (11.5-14.5); White Blood Count 17.8 K/mm3 (4.5-10.0)
[2023-12-28 06:14] LABS: Alanine Aminotransferase 50 U/L (6-35); Albumin Level 2.8 g/dL (3.5-5.1); Alkaline Phosphatase 93 U/L (38-126); Anion Gap 4 mmol/L (4-12); Aspartate Amino Transferase 21 U/L (14-36); Bilirubin,Total 1.3 mg/dL (0.2-1.3); Blood Urea Nitrogen 10 mg/dL (7-17); Calcium 8.9 mg/dL (8.4-10.2); Carbon Dioxide 25 mmol/L (22-30); Chloride 104 mmol/L (98-107); Estimated CRCL calculation 114 ml/min; Estimated Glomerular Filt Rate > 60; Glucose 140 mg/dL (65-110); Lipase 309 U/L (23-300); Magnesium 1.8 mg/dL (1.6-2.3); Phosphorus 1.7 mg/dL (2.5-4.5); Potassium 3.5 mmol/L (3.4-5.0); Sodium 133 mmol/L (137-145)
[2023-12-28] MEDS: HYDROmorphone HCL INJ (*CRX) 1 MG/ML SYR IV PUSH ×5 (07:19→21:14)
[2023-12-28] MEDS: DULoxetine HCL 20 MG CAPSULE.DR PO ×2 (08:45→16:37)
[2023-12-28] MEDS: carvediloL 12.5 MG TABLET PO ×2 (08:45→20:07)
[2023-12-28] MEDS: ENOXAPARIN 40 MG/0.4 ML SYRINGE SUB-Q (08:45)
--- NOTE | 2023-12-28 11:53 | P.PNIM_ITS ---
Progress Note: A&P Assessment and Plan (1) Acute pancreatitis: Qualifiers: Acute pancreatitis complication: no infection or necrosis Pancreatitis type: idiopathic Qualified Code(s): K85.00 - Idiopathic acute pancreatitis without necrosis or infection Code(s): K85.90 - Acute pancreatitis without necrosis or infection, unspecified Status: Inactive (2) Elevated liver enzymes: Code(s): R74.8 - Abnormal levels of other serum enzymes Status: Acute (3) Essential hypertension: Code(s): I10 - Essential (primary) hypertension Status: Acute Plan Acute pancreatitis Patient has elevated total bilirubin, alk-phos, elevated liver enzymes, CT scan shows no gallstone,or duct dilatation. Ultrasound showed gallstone, and thickening of wall of gallbladder Optimize pain management Start fluid resuscitation with lactated Ringer Keep patient NPO Consult GI for evaluation treatment: Diagnosed with GS pancreatitis and elevated liver enzymes, ultrasound showed cholelithiasis, she never had previous episode, only social drinker. Plan is to continue with iv fluids, pain control, npo, surgery on board- interval elizabeth once pancreatitis better. CT scan with normal bile duct size. 12/27- lipase trending down Acute cholecystitis with gallstone Ultrasound suggests acute cholecystitis with gallstone Start Zosyn IV Consult general surgeon for evaluation treatment NOte reviewed: cholelithiasis does appear to be the likely cause of her pancreatitis. Will continue to allow pancreatitis to resolve and follow along with patient. Once pancreatitis has resolved, will plan to proceed with laparoscopic cholecystectomy with cholangiography. 12/27- still pain- ruq- on/off fevers- started on zosyn- for potential cholangitis. surgery recommended proceeding with laparoscopic cholecystectomy with IOC, poss open NPO at midnight Elevated liver enzymes Patient is found have elevated bilirubin, alk-phos, liver enzymes, Ultrasound and CT today show bile duct dilatation Patient passed gallstone Follow-up CMP Management per GI Asthma Stable Continue albuterol inhaler 1 puff q.4 hours p.r.n. Essential hypertension Patient is on carvedilol 12.5 mg b.i.d. p.o., felodipine 10 mg q.h.s. p.o. Will hold oral medications if patient cannot tolerate BP reviewed- stable Sepsis Patient has hypothermia, leukocytosis, tachycardia tachypnea, meeting criteria of SIRS Possible due to acute cholecystitis Monitor vital signs, CBC and a sed infection Zosyn IV Follow-up blood culture Time Spent With Patient Time with patient: Greater than 35 minutes Subjective Date/time seen: 12/28/23 11:53 Interval history: [place]. GI/surgery following Review of Systems Constitutional: Constitutional: Reports chills Cardiovascular: Cardiovascular: Denies chest pain Respiratory: Respiratory: Denies chest congestion Gastrointestinal: Gastrointestinal: Reports abdominal pain, Reports nausea and Denies vomiting Musculoskeletal: Musculoskeletal: Denies back pain Exam Narrative: GENERAL: Pleasant, in no acute distress. Well-nourished.in bed - EYES: EOMI. Anicteric. - HENT: Moist mucous membranes. - LUNGS: Clear to auscultation bilateral ly, no wheezing, rhonchi, or rales. - CARDIOVASCULAR: Regular rate and rhyth m. No murmur. No JVD. Tachycardia - ABDOMEN: Soft, epigastric tender and n on-distended. No palpable masses. - EXTREMITIES: No edema. Peripheral puls es 2+. Non-tender. - NEUROLOGIC: No focal neurological defi cits. CN II-XII grossly intact. - PSYCHIATRIC: Awake, Alert and oriented x 3. Appropriate mood and affect. - SKIN: No rashes or lesions. Warm. - LYMPH: No cervical lymphadenopathy. Const: General: comfortable Objective Data Vital Signs Vital Signs: Vital Signs - 24 hr 12/27/23 14:15 12/27/23 18:47 12/27/23 20:13 Temperature 97.8 F Pulse Rate 80 116 H 116 H Respiratory Rate 16 20 Blood Pressure 130/62 Pulse Oximetry 93 Oxygen Delivery 12/27/23 20:13 12/27/23 20:00 12/27/23 20:38 Temperature 100.1 F H 100.1 F H Pulse Rate 112 H Respiratory Rate 20 Blood Pressure 149/61 H Pulse Oximetry 95 Oxygen Delivery Room Air 12/27/23 21:38 12/27/23 23:50 12/28/23 04:43 Temperature 100.9 F H 99.2 F 100.3 F H Pulse Rate Respiratory Rate Blood Pressure Pulse Oximetry Oxygen Delivery 12/28/23 04:40 12/28/23 05:43 12/28/23 08:45 Temperature 100.3 F H 99.2 F Pulse Rate 89 88 Respiratory Rate 18 Blood Pressure 139/50 L Pulse Oximetry 93 Oxygen Delivery 12/28/23 08:45 Temperature Pulse Rate Respiratory Rate 18 Blood Pressure Pulse Oximetry 93 Oxygen Delivery Room Air Intake/Output Intake/Output: Intake & Output 12/25/23 12/26/23 12/27/23 12/28/23 23:59 23:59 23:59 23:59 Intake Total 1520 2240 1710 Balance 1520 2240 1710 Meds/Results Medications: Active Medications Generic Name Dose Route Start Last Admin Trade Name Freq PRN Reason Stop Dose Admin Acetaminophen 1,000 mg 12/27/23 20:25 12/28/23 04:43 Acetaminophen 500 Mg Tablet PO 1,000 mg Q6H PRN Administration Mild Pain (1-3) or Fever Albuterol 1 puff 12/26/23 05:33 12/27/23 18:45 Albuterol Sulfate (*Sp) Aerosol 1 Puff INHALATION 1 puff Q4HRT PRN Administration Shortness Of Breath Or Wheezing Carvedilol 12.5 mg 12/26/23 09:00 12/28/23 08:45 Carvedilol 12.5 Mg Tablet PO 12.5 mg Q12HR ANGEL Administration Duloxetine HCl 20 mg 12/26/23 09:00 12/28/23 08:45 Duloxetine Hcl 20 Mg Capsule.Dr PO 20 mg BID ANGEL Administration Enoxaparin Sodium 40 mg 12/26/23 09:00 12/28/23 08:45 Enoxaparin 40 Mg/0.4 Ml Syringe SUB-Q 40 mg DAILY ANGEL Administration Felodipine 10 mg 12/26/23 21:00 12/27/23 20:13 Felodipine 5 Mg Tab Cr PO 01/25/24 20:59 10 mg HS ANGEL Administration Hydromorphone HCl 1 mg 12/26/23 05:34 12/28/23 10:08 Hydromorphone Hcl Inj (*Crx) 1 Mg/Ml Syr IV PUSH 1 mg Q3H PRN Administration Pain Rated 7-10 Hydromorphone HCl 0.5 mg 12/26/23 08:11 Hydromorphone Hcl Inj (*Crx) 1 Mg/Ml Syr IV PUSH Q3H PRN Chest Pain Potassium Phosphate 20 mmol/ 256.6667 mls @ 64.167 mls/hr 12/28/23 13:00 Sodium Chloride IVPB 12/28/23 16:59 ONCE ONE Metoclopramide HCl 10 mg 12/26/23 08:11 Metoclopramide Hcl Inj 10 Mg/2 Ml Vial IV PUSH Q6H PRN Nausea And Vomiting Ondansetron HCl 4 mg 12/26/23 05:34 Ondansetron Inj 4 Mg/2 Ml Vial IV PUSH Q6H PRN Nausea And Vomiting Radiology Results: ITS Impressions Abdomen Ultrasound 12/26/23 08:53 IMPRESSION: Cholelithiasis with thickened wall which may raise the possibility of cholecystitis. Clinical correlation and follow-up advised. Otherwise, Unremarkable limited ultrasound of the abdomen. Labs Labs: Laboratory Results - last 24 hr 12/28/23 05:46 WBC 17.8 H RBC 4.42 Hgb 12.3 Hct 37.9 MCV 85.7 MCH 27.8 MCHC 32.5 RDW 13.8 Plt Count 211 MPV 11.2 H Sodium 133 L Potassium 3.5 Chloride 104 Carbon Dioxide 25 Anion Gap 4 BUN 10 D Creatinine 0.50 L Estim Creat Clear Calc 114 Estimated GFR > 60 Glucose 140 H Calcium 8.9 Phosphorus 1.7 L Magnesium 1.8 Total Bilirubin 1.3 AST 21 ALT 50 H Alkaline Phosphatase 93 Total Protein 6.0 L Albumin 2.8 L Lipase 309 H
[2023-12-28] MEDS: POTASSIUM PHOS,M-BASIC-D-BASIC 20 MMOL in SODIUM CHLORIDE 0.9% IV 250 ML 64.17 MMOL IVPB (13:51)
--- NOTE | 2023-12-28 14:03 | P.PNGS_ITS ---
Progress Note: A&P Assessment and Plan (1) Acute pancreatitis: Qualifiers: Acute pancreatitis complication: no infection or necrosis Pancreatitis type: idiopathic Qualified Code(s): K85.00 - Idiopathic acute pancreatitis without necrosis or infection Code(s): K85.90 - Acute pancreatitis without necrosis or infection, unspecified Status: Inactive Assessment and Plan: * Acute biliary pancreatitis. Lipase trending down. Her LUQ pain has improved and now having more RUQ pain. * Continue medical management. * Will make her NPO after midnight in case of surgery depending on the schedule. (2) Cholecystitis: Code(s): K81.9 - Cholecystitis, unspecified Status: Acute Assessment and Plan: * She is having more right-sided abdominal pain and tenderness in the RUQ today c/w cholecystitis. WBC count went up to 17,000. * She has already eaten breakfast this morning, but we will look at the surgery schedule to try adding her on for a laparoscopic cholecystectomy with Dr. Benavides. (3) Cholelithiasis: Code(s): K80.20 - Calculus of gallbladder without cholecystitis without obstruction Status: Acute (4) Elevated liver enzymes: Code(s): R74.8 - Abnormal levels of other serum enzymes Status: Acute Assessment and Plan: * LFTs trending down, continue to monitor Plan I have discussed the patient's case and plan of care with Dr. Benavides. Subjective Subjective Date/Time Seen: 12/28/23 14:03 Interval history: Patient reports having more abdominal pain today and that the pain has shifted to the right side of her abdomen. She points to the right upper quadrant and right lower quadrant when describing her pain. She is currently eating full liquids as GI advanced her diet. She feels very bloated but has not had any nausea other than a short amount of nausea right when she is given the IV pain medication that subsides spontaneously. She is passing flatus and had 1 BM this morning. No other complaints at this time. Lipase down to 300. Exam Const: General: no acute distress and uncomfortable Orientation/consciousness: patient oriented x3 GI: Inspection: other (Mildly distended) GI Palp: Yes Soft to palpation, Yes Tenderness to palpation present (GI) (Right upper quadrant, right lower quadrant), No Guarding due to palpation present (GI) and No Rebound tenderness present Auscultation: normal bowel sounds Objective Data Vital Signs Vital Signs: Vital Signs - 24 hr 12/27/23 14:15 12/27/23 18:47 12/27/23 20:13 Temperature 97.8 F Pulse Rate 80 116 H 116 H Respiratory Rate 16 20 Blood Pressure 130/62 Pulse Oximetry 93 Oxygen Delivery 12/27/23 20:13 12/27/23 20:00 12/27/23 20:38 Temperature 100.1 F H 100.1 F H Pulse Rate 112 H Respiratory Rate 20 Blood Pressure 149/61 H Pulse Oximetry 95 Oxygen Delivery Room Air 12/27/23 21:38 12/27/23 23:50 12/28/23 04:43 Temperature 100.9 F H 99.2 F 100.3 F H Pulse Rate Respiratory Rate Blood Pressure Pulse Oximetry Oxygen Delivery 12/28/23 04:40 12/28/23 05:43 12/28/23 08:45 Temperature 100.3 F H 99.2 F Pulse Rate 89 88 Respiratory Rate 18 Blood Pressure 139/50 L Pulse Oximetry 93 Oxygen Delivery 12/28/23 08:45 12/28/23 13:52 Temperature 98.1 F Pulse Rate 84 Respiratory Rate 18 20 Blood Pressure 127/56 L Pulse Oximetry 93 94 Oxygen Delivery Room Air Intake/Output Intake/Output: Intake & Output 12/25/23 12/26/23 12/27/23 12/28/23 23:59 23:59 23:59 23:59 Intake Total 1520 2240 1950 Balance 1520 2240 1950 Meds/Results Medications: Active Medications Generic Name Dose Route Start Last Admin Trade Name Freq PRN Reason Stop Dose Admin Acetaminophen 1,000 mg 12/27/23 20:25 12/28/23 04:43 Acetaminophen 500 Mg Tablet PO 1,000 mg Q6H PRN Administration Mild Pain (1-3) or Fever Albuterol 1 puff 12/26/23 05:33 12/27/23 18:45 Albuterol Sulfate (*Sp) Aerosol 1 Puff INHALATION 1 puff Q4HRT PRN Administration Shortness Of Breath Or Wheezing Carvedilol 12.5 mg 12/26/23 09:00 12/28/23 08:45 Carvedilol 12.5 Mg Tablet PO 12.5 mg Q12HR ANGEL Administration Duloxetine HCl 20 mg 12/26/23 09:00 12/28/23 08:45 Duloxetine Hcl 20 Mg Capsule.Dr PO 20 mg BID ANGEL Administration Enoxaparin Sodium 40 mg 12/26/23 09:00 12/28/23 08:45 Enoxaparin 40 Mg/0.4 Ml Syringe SUB-Q 40 mg DAILY ANGEL Administration Felodipine 10 mg 12/26/23 21:00 12/27/23 20:13 Felodipine 5 Mg Tab Cr PO 01/25/24 20:59 10 mg HS ANGEL Administration Hydromorphone HCl 1 mg 12/26/23 05:34 12/28/23 13:11 Hydromorphone Hcl Inj (*Crx) 1 Mg/Ml Syr IV PUSH 1 mg Q3H PRN Administration Pain Rated 7-10 Hydromorphone HCl 0.5 mg 12/26/23 08:11 Hydromorphone Hcl Inj (*Crx) 1 Mg/Ml Syr IV PUSH Q3H PRN Chest Pain Potassium Phosphate 20 mmol/ 256.6667 mls @ 64.167 mls/hr 12/28/23 13:00 12/28/23 13:51 Sodium Chloride IVPB 12/28/23 16:59 64.17 mls/hr ONCE ONE Administration Metoclopramide HCl 10 mg 12/26/23 08:11 Metoclopramide Hcl Inj 10 Mg/2 Ml Vial IV PUSH Q6H PRN Nausea And Vomiting Ondansetron HCl 4 mg 12/26/23 05:34 Ondansetron Inj 4 Mg/2 Ml Vial IV PUSH Q6H PRN Nausea And Vomiting Radiology Results: ITS Impressions Abdomen Ultrasound 12/26/23 08:53 IMPRESSION: Cholelithiasis with thickened wall which may raise the possibility of cholecystitis. Clinical correlation and follow-up advised. Otherwise, Unremarkable limited ultrasound of the abdomen. Labs Labs: Laboratory Results - last 24 hr 12/28/23 05:46 WBC 17.8 H RBC 4.42 Hgb 12.3 Hct 37.9 MCV 85.7 MCH 27.8 MCHC 32.5 RDW 13.8 Plt Count 211 MPV 11.2 H Sodium 133 L Potassium 3.5 Chloride 104 Carbon Dioxide 25 Anion Gap 4 BUN 10 D Creatinine 0.50 L Estim Creat Clear Calc 114 Estimated GFR > 60 Glucose 140 H Calcium 8.9 Phosphorus 1.7 L Magnesium 1.8 Total Bilirubin 1.3 AST 21 ALT 50 H Alkaline Phosphatase 93 Total Protein 6.0 L Albumin 2.8 L Lipase 309 H
--- NOTE | 2023-12-28 15:12 | WPDGIPROGNO ---
Progress Note: A&P Assessment and Plan (1) Gallstone pancreatitis: Code(s): K85.10 - Biliary acute pancreatitis without necrosis or infection Status: Acute Assessment and Plan: feeling better, liver enzymes coming down, lipase better normal bile duct but cholelithiasis- noted higher wbc, probably lap elizabeth (2) Elevated LFTs: Code(s): R79.89 - Other specified abnormal findings of blood chemistry Status: Acute Assessment and Plan: trending down (3) Nausea and vomiting: Qualifiers: Vomiting type: bilious vomiting Qualified Code(s): R11.14 - Bilious vomiting Code(s): R11.2 - Nausea with vomiting, unspecified Status: Acute Assessment and Plan: antiemetics prn (4) Generalized abdominal pain: Code(s): R10.84 - Generalized abdominal pain Status: Acute Assessment and Plan: still needs pain meds (5) Cholelithiasis: Code(s): K80.20 - Calculus of gallbladder without cholecystitis without obstruction Status: Acute Subjective Date/time seen: 12/28/23 15:12 Interval history: still pain after eating, requiring pain meds Review of Systems Review of Systems: All systems reviewed & are unremarkable except as noted in HPI and below Exam Const: General: no acute distress and uncomfortable Orientation/consciousness: patient oriented x3 HENMT: Face/Nose/Sinus: Normal nares present Eyes: General: appearance normal, both eyes and all related structures Neck: Neck: supple Resp: Effort & Inspection: normal respiratory effort Cardio: Rate: regular rate GI: Inspection: other (Mildly distended) GI Palp: Yes Soft to palpation, Yes Tenderness to palpation present (GI) (Right upper quadrant, right lower quadrant), No Guarding due to palpation present (GI) and No Rebound tenderness present Auscultation: normal bowel sounds Skin: General skin exam: normal color Neuro: Speech: normal speech Motor exam (neuro): 5/5 motor strength present throughout Extrem: General: normal to inspection Psych: Affect: normal affect Objective Data Vital Signs Vital Signs: Vital Signs - 24 hr 12/27/23 18:47 12/27/23 20:13 12/27/23 20:13 Temperature 100.1 F H Pulse Rate 116 H 116 H 112 H Respiratory Rate 20 20 Blood Pressure 149/61 H Pulse Oximetry 95 Oxygen Delivery 12/27/23 20:00 12/27/23 20:38 12/27/23 21:38 Temperature 100.1 F H 100.9 F H Pulse Rate Respiratory Rate Blood Pressure Pulse Oximetry Oxygen Delivery Room Air 12/27/23 23:50 12/28/23 04:43 12/28/23 04:40 Temperature 99.2 F 100.3 F H 100.3 F H Pulse Rate 89 Respiratory Rate 18 Blood Pressure 139/50 L Pulse Oximetry 93 Oxygen Delivery 12/28/23 05:43 12/28/23 08:45 12/28/23 08:45 Temperature 99.2 F Pulse Rate 88 Respiratory Rate 18 Blood Pressure Pulse Oximetry 93 Oxygen Delivery Room Air 12/28/23 13:52 Temperature 98.1 F Pulse Rate 84 Respiratory Rate 20 Blood Pressure 127/56 L Pulse Oximetry 94 Oxygen Delivery Intake/Output Intake/Output: Intake & Output 12/25/23 12/26/23 12/27/23 12/28/23 23:59 23:59 23:59 23:59 Intake Total 1520 2240 1950 Balance 1520 2240 1950 Meds/Results Medications: Active Medications Generic Name Dose Route Start Last Admin Trade Name Freq PRN Reason Stop Dose Admin Acetaminophen 1,000 mg 12/27/23 20:25 12/28/23 04:43 Acetaminophen 500 Mg Tablet PO 1,000 mg Q6H PRN Administration Mild Pain (1-3) or Fever Albuterol 1 puff 12/26/23 05:33 12/27/23 18:45 Albuterol Sulfate (*Sp) Aerosol 1 Puff INHALATION 1 puff Q4HRT PRN Administration Shortness Of Breath Or Wheezing Carvedilol 12.5 mg 12/26/23 09:00 12/28/23 08:45 Carvedilol 12.5 Mg Tablet PO 12.5 mg Q12HR ANGEL Administration Duloxetine HCl 20 mg 12/26/23 09:00 12/28/23 08:45 Duloxetine Hcl 20 Mg Capsule.Dr PO 20 mg BID ANGEL Administration Enoxaparin Sodium 40 mg 12/26/23 09:00 12/28/23 08:45 Enoxaparin 40 Mg/0.4 Ml Syringe SUB-Q 40 mg DAILY ANGEL Administration Felodipine 10 mg 12/26/23 21:00 12/27/23 20:13 Felodipine 5 Mg Tab Cr PO 01/25/24 20:59 10 mg HS ANGEL Administration Hydromorphone HCl 1 mg 12/26/23 05:34 12/28/23 13:11 Hydromorphone Hcl Inj (*Crx) 1 Mg/Ml Syr IV PUSH 1 mg Q3H PRN Administration Pain Rated 7-10 Hydromorphone HCl 0.5 mg 12/26/23 08:11 Hydromorphone Hcl Inj (*Crx) 1 Mg/Ml Syr IV PUSH Q3H PRN Chest Pain Potassium Phosphate 20 mmol/ 256.6667 mls @ 64.167 mls/hr 12/28/23 13:00 12/28/23 13:51 Sodium Chloride IVPB 12/28/23 16:59 64.17 mls/hr ONCE ONE Administration Lactated Ringer's 1,000 mls @ 70 mls/hr 12/28/23 14:10 Lr - Lactated Ringers Iv IV CONT .[id number] ANGEL Metoclopramide HCl 10 mg 12/26/23 08:11 Metoclopramide Hcl Inj 10 Mg/2 Ml Vial IV PUSH Q6H PRN Nausea And Vomiting Ondansetron HCl 4 mg 12/26/23 05:34 Ondansetron Inj 4 Mg/2 Ml Vial IV PUSH Q6H PRN Nausea And Vomiting Radiology Results: ITS Impressions Abdomen Ultrasound 12/26/23 08:53 IMPRESSION: Cholelithiasis with thickened wall which may raise the possibility of cholecystitis. Clinical correlation and follow-up advised. Otherwise, Unremarkable limited ultrasound of the abdomen. Labs Labs: Laboratory Results - last 24 hr 12/28/23 05:46 WBC 17.8 H RBC 4.42 Hgb 12.3 Hct 37.9 MCV 85.7 MCH 27.8 MCHC 32.5 RDW 13.8 Plt Count 211 MPV 11.2 H Sodium 133 L Potassium 3.5 Chloride 104 Carbon Dioxide 25 Anion Gap 4 BUN 10 D Creatinine 0.50 L Estim Creat Clear Calc 114 Estimated GFR > 60 Glucose 140 H Calcium 8.9 Phosphorus 1.7 L Magnesium 1.8 Total Bilirubin 1.3 AST 21 ALT 50 H Alkaline Phosphatase 93 Total Protein 6.0 L Albumin 2.8 L Lipase 309 H
[2023-12-28] MEDS: PIPERACILLN/TAZ 3.375GM/NS50ML 3.375 GM/50 ML BAG IVPB (17:46)
[2023-12-28] MEDS: LACTATED RINGERS 1,000 ML 70 ML IV CONT (18:15)
[2023-12-28] MEDS: FELODIPINE 5 MG TAB CR 10 MG PO (20:06)
[2023-12-29] VITALS (16 sets, daily range): BP systolic 109–137; BP diastolic 52–83; PULSE 75–90; RESP 16–29; TEMP 36.2–38.1; O2SAT 89–99
[2023-12-29] MEDS: PIPERACILLN/TAZ 3.375GM/NS50ML 3.375 GM/50 ML BAG IVPB ×3 (00:03→18:00)
[2023-12-29] MEDS: HYDROmorphone HCL INJ (*CRX) 1 MG/ML SYR IV PUSH ×3 (00:04→07:43)
[2023-12-29] MEDS: ACETAMINOPHEN 500 MG TABLET 1000 MG PO (00:06)
[2023-12-29 06:18] LABS: Basophils Absolute Auto 0.1 K/mm3 (0.0-0.1); Basophils Percent Auto 0.5 % (0.2-1.2); Eosinophils Absolute Auto 0.6 K/mm3 (0-0.3); Eosinophils Percent Auto 4.2 % (0-4.4); Hemoglobin 11.1 g/dL (12.0-15.0); Immature Granulocyte Absolute 0.15 K/mm3 (0.00-0.031); Lymphocytes Absolute Auto 1.64 K/mm3 (0.9-3.2); Mean Corpuscular HGB Conc 30.8 g/dl (32-36); Mean Corpuscular Hemoglobin 26.9 pg (26-34); Mean Corpuscular Volume 87.2 fl (80-100); Mean Platelet Volume 11.1 fl (7.4-10.4); Monocytes Absolute Auto 1.1 K/mm3 (0.1-0.6); Monocytes Percent Auto 7.4 % (2.6-8.5); Neutrophils Absolute Auto 11.3 K/mm3 (1.3-6.7); Neutrophils Percent Auto 75.9 % (45.5-73.1); Platelet Count Result 198 k/mm3 (150-375); Red Blood Count 4.13 M/mm3 (4.2-5.4); Red Cell Distribution Width 13.7 % (11.5-14.5); White Blood Count 14.9 K/mm3 (4.5-10.0)
[2023-12-29 06:29] LABS: Alanine Aminotransferase 34 U/L (6-35); Albumin Level 2.7 g/dL (3.5-5.1); Alkaline Phosphatase 89 U/L (38-126); Anion Gap 5 mmol/L (4-12); Aspartate Amino Transferase 18 U/L (14-36); Bilirubin,Total 1.1 mg/dL (0.2-1.3); Blood Urea Nitrogen 7 mg/dL (7-17); Calcium 8.5 mg/dL (8.4-10.2); Carbon Dioxide 28 mmol/L (22-30); Chloride 103 mmol/L (98-107); Estimated CRCL calculation 114 ml/min; Estimated Glomerular Filt Rate > 60; Glucose 116 mg/dL (65-110); Lipase 55 U/L (23-300); Potassium 3.7 mmol/L (3.4-5.0); Sodium 136 mmol/L (137-145)
[2023-12-29] MEDS: carvediloL 12.5 MG TABLET PO ×2 (07:42→20:43)
[2023-12-29] MEDS: DULoxetine HCL 20 MG CAPSULE.DR PO ×2 (07:42→18:00)
[2023-12-29] MEDS: LACTATED RINGERS 1,000 ML 70 ML IV CONT (07:43)
--- NOTE | 2023-12-29 09:13 | WPDANESEPPF ---
Anes - Initial Pre Proc Eval Procedure: Operation Date: 12/29/23 11:00 Proposed Procedures p Laparoscopic Cholecystectomy,With Intraoperative Cholangiograms - Hamilton Benavides DO <Duy Kapoor MD - Last Filed: 01/04/24 13:55> Date/Time: 12/29/23 09:13 <Duy Kapoor MD - Last Filed: 01/04/24 13:55> Surgeon: Eugene Fried MD <Duy Kapoor MD - Last Filed: 01/04/24 13:55> Pre Op Diagnosis: Acute pancreatitis <Duy Kapoor MD - Last Filed: 01/04/24 13:55> Patient Data Age: 58 Gender: F Height: 1.7 m Weight: 88.8 kg <Duy Kapoor MD - Last Filed: 01/04/24 13:55> Last Vital Signs Temp 97.8 F 12/29/23 05:46 Pulse 84 12/29/23 07:42 Resp 18 12/29/23 05:46 BP 116/52 L 12/29/23 05:46 Pulse Ox 92 12/29/23 05:46 O2 Del Method Room Air 12/29/23 07:52 <Duy Kapoor MD - Last Filed: 01/04/24 13:55> Allergies Allergy/AdvReac Type Severity Reaction Status Date / Time Sulfa (Sulfonamide Allergy Severe Rash Verified 12/25/23 23:45 Antibiotics) codeine Allergy Intermediate GI UPSET Verified 12/25/23 23:45 erythromycin base Allergy Unknown Unknown Verified 12/25/23 23:45 EMYCIN Allergy Severe RED,FLUSHED, Uncoded 01/10/23 15:47 PEELING SKIN <Duy Kapoor MD - Last Filed: 01/04/24 13:55> Home Medications Medication Instructions Recorded Confirmed Type carvedilol 6.25 mg tablet (Coreg) 12.5 mg PO BID 01/10/23 12/26/23 History losartan 100 1 tablet PO DAILY 01/10/23 12/26/23 History mg-hydrochlorothiazide 12.5 mg tablet (Hyzaar) tirzepatide (weight loss) 10 10 mg subcut WEEKLY 12/25/23 12/26/23 History mg/0.5 mL subcutaneous pen injector (Zepbound) albuterol sulfate 90 mcg/actuation 1 puff inhalation Q4H PRN 12/26/23 12/26/23 History aerosol inhaler Shortness Of Breath Or Wheezing duloxetine 20 mg capsule,delayed 20 mg PO BID 12/26/23 12/26/23 History release felodipine 10 mg tablet,extended 10 mg PO HS 12/26/23 12/26/23 History release 24 hr hydrocodone 5 mg-acetaminophen 325 1 tablet PO Q6H PRN pain #20 tabs 12/30/23 Rx mg tablet <Duy Kapoor MD - Last Filed: 01/04/24 13:55> Laboratory Tests 12/29/23 06:04 WBC 14.9 H K/mm3 (4.5-10.0) RBC 4.13 L M/mm3 (4.2-5.4) Hgb 11.1 L g/dL (12.0-15.0) Hct 36.0 L % (37.0-47.0) MCV 87.2 fl (80-100) MCH 26.9 pg (26-34) MCHC 30.8 L g/dl (32-36) RDW 13.7 % (11.5-14.5) Plt Count 198 k/mm3 (150-375) MPV 11.1 H fl (7.4-10.4) Immature Gran % (Auto) 1.0 H % (0-0.5) Neut % (Auto) 75.9 H % (45.5-73.1) Lymph % (Auto) 11.0 L % (18.3-44.2) [place]ton % (Auto) 7.4 % (2.6-8.5) Eos % (Auto) 4.2 % (0-4.4) Baso % (Auto) 0.5 % (0.2-1.2) Lymph # (Auto) 1.64 K/mm3 (0.9-3.2) [place] # (Auto) 1.1 H K/mm3 (0.1-0.6) Eos # (Auto) 0.6 H K/mm3 (0-0.3) Baso # (Auto) 0.1 K/mm3 (0.0-0.1) Abs Immat Gran (auto) 0.15 H K/mm3 (0.00-0.031) Absolute Neuts (auto) 11.3 H K/mm3 (1.3-6.7) Absolute Nucleated RBC 0.000 K/mm3 (0.0-0.012) Nucleated RBC % 0.0 % (0.0-0.2) Sodium 136 L mmol/L (137-145) Potassium 3.7 mmol/L (3.4-5.0) Chloride 103 mmol/L (98-107) Carbon Dioxide 28 mmol/L (22-30) Anion Gap 5 mmol/L (4-12) BUN 7 mg/dL (7-17) Creatinine 0.50 L mg/dL (0.7-1.0) Estim Creat Clear Calc 114 ml/min Estimated GFR > 60 (59 - ) Glucose 116 H mg/dL (65-110) Calcium 8.5 mg/dL (8.4-10.2) Total Bilirubin 1.1 mg/dL (0.2-1.3) AST 18 U/L (14-36) ALT 34 U/L (6-35) Alkaline Phosphatase 89 U/L (38-126) Total Protein 5.0 L g/dL (6.3-8.2) Albumin 2.7 L g/dL (3.5-5.1) Lipase 55 U/L (23-300) <Duy Kapoor MD - Last Filed: 01/04/24 13:55> Patient hx anesthesia problems: none <Rick Sanchez DO - Last Filed: 12/29/23 11:41> Family hx anesthesia problems: none <Rick Sanchez DO - Last Filed: 12/29/23 11:41> Results Review: All pre-operative results and documents have been reviewed as part of the pre-operative evaluation. <Duy Kapoor MD - Last Filed: 01/04/24 13:55> [facility] Past Medical History Medical History: Medical History (Updated 12/27/23 @ 15:43 by Kris Calixto MD) Asthma Gallstone pancreatitis Hypertension <Duy Kapoor MD - Last Filed: 01/04/24 13:55> Surgical History Surgical History: Surgical History History of total abdominal hysterectomy and bilateral salpingo-oophorectomy Hx of tonsillectomy <Duy Kapoor MD - Last Filed: 01/04/24 13:55> Family History Family History: Family History Mother Hypertension Family history of arthritis Family history of chronic obstructive pulmonary disease Family history of emphysema Father Carcinoma of colon Malignant neoplasm of prostate Sibling Family history of malignant neoplasm of uterus <Duy Kapoor MD - Last Filed: 01/04/24 13:55> Social History Social History: Social History Smoking status: Never smoker Alcohol intake: current Drinks per week: 3 Substance use: never Do You Feel Safe in your Home?: No Lack of Transportation: No Lack of Food: Never True Current Housing: I Have Housing Concerned About Future Housing: No Difficulty Paying Gas/Electric Bills: No Difficulty Paying for Meds: No Currently Unemployed: No Education: Associate Degree Difficulty w/ Childcare or Family Care: No Spiritual care concerns: No <Duy Kapoor MD - Last Filed: 01/04/24 13:55> Anes - Eval Final PreProcedure Day of Procedure 12/29/23 09:13 <Duy Kapoor MD - Last Filed: 01/04/24 13:55> Patient weight: obese <Rick Sanchez DO - Last Filed: 12/29/23 11:41> Heart: regular rate and rhythm <Rick Sanchez DO - Last Filed: 12/29/23 11:41> Lungs: clear to auscultation <Rick Sanchez DO - Last Filed: 12/29/23 11:41> Airway: Mallampati scale class II <Rick Sanchez DO - Last Filed: 12/29/23 11:41> Neurological: alert and oriented <Rick Sanchez DO - Last Filed: 12/29/23 11:41> Last oral intake: >/= 8 hours <Rick Sanchez DO - Last Filed: 12/29/23 11:41> ASA classification: III <Rick Sanchez DO - Last Filed: 12/29/23 11:41> Emergent: no <Rick Sanchez DO - Last Filed: 12/29/23 11:41> Anesthetic plan: proceed <Rick Sanchez DO - Last Filed: 12/29/23 11:41> Anesthesia type and monitoring: general ETT and standard monitoring <Rick Sanchez DO - Last Filed: 12/29/23 11:41> Results Review: All pre-operative results and documents have been reviewed as part of the pre-operative evaluation. <Duy Kapoor MD - Last Filed: 01/04/24 13:55> Informed Consent: The patient's anesthetic plan and its attendant risks and benefits were discussed with the patient/family/POA. Questions were solicited and answers provided to the satisfaction of the patient/family/POA. <Duy Kapoor MD - Last Filed: 01/04/24 13:55>
--- NOTE | 2023-12-29 10:05 | PC.NURSE ---
pt to surgery via bed
--- NOTE | 2023-12-29 10:32 | P.PNIM_ITS ---
Progress Note: A&P Assessment and Plan (1) Acute pancreatitis: Qualifiers: Acute pancreatitis complication: no infection or necrosis Pancreatitis type: idiopathic Qualified Code(s): K85.00 - Idiopathic acute pancreatitis without necrosis or infection Code(s): K85.90 - Acute pancreatitis without necrosis or infection, unspecified Status: Inactive (2) Elevated liver enzymes: Code(s): R74.8 - Abnormal levels of other serum enzymes Status: Acute (3) Essential hypertension: Code(s): I10 - Essential (primary) hypertension Status: Acute Plan Acute pancreatitis Patient has elevated total bilirubin, alk-phos, elevated liver enzymes, CT scan shows no gallstone,or duct dilatation. Ultrasound showed gallstone, and thickening of wall of gallbladder Optimize pain management Start fluid resuscitation with lactated Ringer Keep patient NPO Consult GI for evaluation treatment: Diagnosed with GS pancreatitis and elevated liver enzymes, ultrasound showed cholelithiasis, she never had previous episode, only social drinker. Plan is to continue with iv fluids, pain control, npo, surgery on board- interval elizabeth once pancreatitis better. CT scan with normal bile duct size. 12/27- lipase trending down Acute cholecystitis with gallstone Ultrasound suggests acute cholecystitis with gallstone Start Zosyn IV Consult general surgeon for evaluation treatment NOte reviewed: cholelithiasis does appear to be the likely cause of her pancreatitis. Will continue to allow pancreatitis to resolve and follow along with patient. Once pancreatitis has resolved, will plan to proceed with laparoscopic cholecystectomy with cholangiography. 12/27- still pain- ruq- on/off fevers- started on zosyn- for potential cholangitis. surgery recommended proceeding with laparoscopic cholecystectomy with IOC, poss open NPO at midnight 12/28- laparoscopic cholecystectomy with IOC, poss open Elevated liver enzymes Patient is found have elevated bilirubin, alk-phos, liver enzymes, Ultrasound and CT today show bile duct dilatation Patient passed gallstone Follow-up CMP Management per GI Asthma Stable Continue albuterol inhaler 1 puff q.4 hours p.r.n. Essential hypertension Patient is on carvedilol 12.5 mg b.i.d. p.o., felodipine 10 mg q.h.s. p.o. Will hold oral medications if patient cannot tolerate BP reviewed- stable Sepsis Patient has hypothermia, leukocytosis, tachycardia tachypnea, meeting criteria of SIRS Possible due to acute cholecystitis Monitor vital signs, CBC and a sed infection Zosyn IV Follow-up blood culture 12/28- wbc improving Time Spent With Patient Time with patient: Greater than 35 minutes Subjective Date/time seen: 12/29/23 10:32 Interval history: laparoscopic cholecystectomy with surgery today Review of Systems Constitutional: Constitutional: Reports chills Cardiovascular: Cardiovascular: Denies chest pain Respiratory: Respiratory: Denies chest congestion Gastrointestinal: Gastrointestinal: Reports abdominal pain, Reports nausea and Denies vomiting Musculoskeletal: Musculoskeletal: Denies back pain Exam Narrative: GENERAL: Pleasant, in no acute distress. Well-nourished.in bed - EYES: EOMI. Anicteric. - HENT: Moist mucous membranes. - LUNGS: Clear to auscultation bilateral ly, no wheezing, rhonchi, or rales. - CARDIOVASCULAR: Regular rate and rhyth m. No murmur. No JVD. Tachycardia - ABDOMEN: Soft, epigastric tender and n on-distended. No palpable masses. - EXTREMITIES: No edema. Peripheral puls es 2+. Non-tender. - NEUROLOGIC: No focal neurological defi cits. CN II-XII grossly intact. - PSYCHIATRIC: Awake, Alert and oriented x 3. Appropriate mood and affect. - SKIN: No rashes or lesions. Warm. - LYMPH: No cervical lymphadenopathy. Const: General: comfortable Objective Data Vital Signs Vital Signs: Vital Signs - 24 hr 12/28/23 13:52 12/28/23 18:02 12/28/23 18:59 Temperature 98.1 F 102 F H 99.8 F H Pulse Rate 84 Respiratory Rate 20 Blood Pressure 127/56 L Pulse Oximetry 94 Oxygen Delivery 12/28/23 20:07 12/28/23 20:00 12/28/23 21:12 Temperature 98.5 F Pulse Rate 90 90 Respiratory Rate 18 Blood Pressure 131/74 Pulse Oximetry 93 Oxygen Delivery Room Air 12/29/23 00:06 12/29/23 01:03 12/29/23 05:46 Temperature 100.6 F H 98.6 F 97.8 F Pulse Rate 84 Respiratory Rate 18 Blood Pressure 116/52 L Pulse Oximetry 92 Oxygen Delivery 12/29/23 07:42 12/29/23 07:52 Temperature Pulse Rate 84 Respiratory Rate Blood Pressure Pulse Oximetry Oxygen Delivery Room Air Intake/Output Intake/Output: Intake & Output 12/26/23 12/27/23 12/28/23 12/29/23 23:59 23:59 23:59 23:59 Intake Total 1520 2240 3996.7 1292.7 Balance 1520 2240 3996.7 1292.7 Meds/Results Medications: Active Medications Generic Name Dose Route Start Last Admin Trade Name Freq PRN Reason Stop Dose Admin Acetaminophen 1,000 mg 12/27/23 20:25 12/29/23 00:06 Acetaminophen 500 Mg Tablet PO 1,000 mg Q6H PRN Administration Mild Pain (1-3) or Fever Albuterol 1 puff 12/26/23 05:33 12/27/23 18:45 Albuterol Sulfate (*Sp) Aerosol 1 Puff INHALATION 1 puff Q4HRT PRN Administration Shortness Of Breath Or Wheezing Carvedilol 12.5 mg 12/26/23 09:00 12/29/23 07:42 Carvedilol 12.5 Mg Tablet PO 12.5 mg Q12HR ANGEL Administration Duloxetine HCl 20 mg 12/26/23 09:00 12/29/23 07:42 Duloxetine Hcl 20 Mg Capsule.Dr PO 20 mg BID ANGEL Administration Enoxaparin Sodium 40 mg 12/26/23 09:00 12/29/23 07:42 Enoxaparin 40 Mg/0.4 Ml Syringe SUB-Q Not Given DAILY ANGEL Felodipine 10 mg 12/26/23 21:00 12/28/23 20:06 Felodipine 5 Mg Tab Cr PO 01/25/24 20:59 10 mg HS ANGEL Administration Fentanyl Citrate 25 mcg 12/29/23 09:14 Fentanyl Citrate Inj (*Crx) 100 Mcg/2 Ml Vial IV PUSH Q2M PRN Pain Hydromorphone HCl 1 mg 12/26/23 05:34 12/29/23 07:43 Hydromorphone Hcl Inj (*Crx) 1 Mg/Ml Syr IV PUSH 1 mg Q3H PRN Administration Pain Rated 7-10 Hydromorphone HCl 0.5 mg 12/26/23 08:11 Hydromorphone Hcl Inj (*Crx) 1 Mg/Ml Syr IV PUSH Q3H PRN Chest Pain Lactated Ringer's 1,000 mls @ 70 mls/hr 12/28/23 14:10 12/29/23 07:43 Lr - Lactated Ringers Iv IV CONT 70 mls/hr .[id number] ANGEL Administration Piperacillin/Tazobactam/Dextrose 3.375 gm in 50 mls @ 100 mls/hr 12/28/23 18:00 12/29/23 05:35 Zosyn 3.375 Gm/Ns 50 Ml IVPB Infused Q6H ANGEL Infusion Lactated Ringer's 1,000 mls @ 30 mls/hr 12/29/23 09:15 Lr - Lactated Ringers Iv IV CONT .Q24H ANGEL Lactated Ringer's 1,000 mls @ 30 mls/hr 12/29/23 09:15 Lr - Lactated Ringers Iv IV CONT .Q24H ANGEL Metoclopramide HCl 10 mg 12/26/23 08:11 Metoclopramide Hcl Inj 10 Mg/2 Ml Vial IV PUSH Q6H PRN Nausea And Vomiting Ondansetron HCl 4 mg 12/26/23 05:34 Ondansetron Inj 4 Mg/2 Ml Vial IV PUSH Q6H PRN Nausea And Vomiting Ondansetron HCl 4 mg 12/29/23 09:14 Ondansetron Inj 4 Mg/2 Ml Vial IV PUSH ONCE PRN Nausea Radiology Results: ITS Impressions Abdomen Ultrasound 12/26/23 08:53 IMPRESSION: Cholelithiasis with thickened wall which may raise the possibility of cholecystitis. Clinical correlation and follow-up advised. Otherwise, Unremarkable limited ultrasound of the abdomen. Labs Labs: Laboratory Results - last 24 hr 12/29/23 06:04 WBC 14.9 H RBC 4.13 L Hgb 11.1 L Hct 36.0 L MCV 87.2 MCH 26.9 MCHC 30.8 L RDW 13.7 Plt Count 198 MPV 11.1 H Immature Gran % (Auto) 1.0 H Neut % (Auto) 75.9 H Lymph % (Auto) 11.0 L Coal % (Auto) 7.4 Eos % (Auto) 4.2 Baso % (Auto) 0.5 Lymph # (Auto) 1.64 Coal # (Auto) 1.1 H Eos # (Auto) 0.6 H Baso # (Auto) 0.1 Abs Immat Gran (auto) 0.15 H Absolute Neuts (auto) 11.3 H Absolute Nucleated RBC 0.000 Nucleated RBC % 0.0 Sodium 136 L Potassium 3.7 Chloride 103 Carbon Dioxide 28 Anion Gap 5 BUN 7 Creatinine 0.50 L Estim Creat Clear Calc 114 Estimated GFR > 60 Glucose 116 H Calcium 8.5 Total Bilirubin 1.1 AST 18 ALT 34 Alkaline Phosphatase 89 Total Protein 5.0 L Albumin 2.7 L Lipase 55
[2023-12-29] MEDS: fentaNYL CITRATE INJ (*CRX) 100 MCG/2 ML VIAL 50 MCG IV PUSH (10:47)
--- NOTE | 2023-12-29 11:17 | WPDHPUPDATE1 ---
History and Physical Update Update Date/Time: 12/29/23 11:17 History and Physical has been reviewed, including an updated exam of the patient. There are NO changes in the patient's condition. Risks, benefits, and alternatives have been discussed and questions answered. Patient agrees to proceed with procedure.
[2023-12-29] MEDS: LACTATED RINGERS 1,000 ML 30 ML IV CONT ×2 (11:30→13:58)
[2023-12-29] MEDS: BUPIVACAINE/EPINEPHRINE 0.5% 50 ML VIAL 30 ML INFILTRATE (12:38)
--- NOTE | 2023-12-29 13:03 | P.OP_ITS ---
Procedure Note - Detailed Date of Procedure 12/29/23 Pre-op Diagnosis Acute biliary pancreatitis, cholelithiasis Post-op Diagnosis Same Procedure Performed Laparoscopic cholecystectomy with intraoperative cholangiogram, possible open Surgeon Hamilton Benavides DO Anesthesia General and Local (0.5% bupivacaine) Indications This is a 58-year-old woman who presented to the emergency department with epigastric abdominal pain. She was noted to have an elevated white blood count and CT showed evidence of acute pancreatitis. Gallbladder ultrasound showed evidence of cholelithiasis and gallbladder wall thickening. Her pancreatitis seemed to be slightly improving but she was still having some abdominal pain. Most of her pain was now localized to the right upper quadrant and back region. Discussions were made with the patient about treatment options and decision was made to proceed with laparoscopic cholecystectomy with intraoperative cholangiogram, possible open. Findings Laparoscopic cholecystectomy with intraoperative cholangiogram was performed. The gallbladder did not appear to have any evidence of acute cholecystitis. The wall was actually very thin. Cystic duct appeared normal in size. There were some gallstones within the gallbladder. Intraoperative cholangiogram was obtained and there were no signs of bile duct obstruction or filling defects. The gallbladder was removed and sent to the lab for pathology. Within the abdominal cavity, the pancreas did still appear somewhat swollen. There were also signs of calcinosis on the omentum and peritoneum. There was some clear ascites within the right upper quadrant and left upper quadrant. Description of Procedure Procedure as well as risks, benefits, and alternatives were discussed with patient. Written consent was obtained and placed in chart prior to procedure. The patient was brought back to surgical suite. Patient was placed in supine position on operating table. Time-out was done to confirm patient and procedure. Patient was then intubated by the anesthesia department. Abdomen was prepped and draped in sterile fashion using chlorhexidine prep. 0.5% bupivacaine with epinephrine was infiltrated at each site of incision. A 5 millimeter incision was made near the umbilicus, and a 5 millimeter Optiview trocar was advanced through the abdominal layers under direct visualization. Once inside the abdominal cavity, carbon dioxide was insufflated to create a pneumoperitoneum. The camera was inserted and the abdomen was inspected. No immediate abnormalities were identified. The patient was placed in reverse Trendelenburg position and rotated slightly to the left. An 11 millimeter incision was made in the subxiphoid region, and an 11 millimeter trocar was inserted under direct visualization. Two 5 millimeter incisions were made in the right upper quadrant, and two 5 millimeter trocars were inserted under direct visualization. The gallbladder was identified and grasped at the fundus and retracted superiorly. It was then grasped at the infundibulum retracted laterally. Careful dissection around the neck of the gallbladder was performed using blunt dissection with a [place] grasper and hook electrocautery. The cystic duct was identified, and a window was created behind it. The cystic artery was also identified and a window was created behind it. The critical view of safety was identified, visualizing the cystic duct running directly into the neck of the gallbladder, and the cystic artery running directly into the wall of the gallbladder. A 5 millimeter clip senior planning manager was then used to place 2 clips proximally and 1 clip distally on the cystic artery. It was then transected using endoscopic scissors. the Spaulding clamp was then placed across the distal neck of the gallbladder. The Spaulding cholangiocatheter was then advanced into the distal neck of the gallbladder. Bile was able to be aspirated and it flushed with saline with ease. The patient was then flattened out in bed and intraoperative cholangiogram was obtained using fluoroscopy and Omnipaque contrast. The images were then sent to the radiologist for interpretation. A 5 mm Endoclip senior planning manager was then used to place 2 clips proximally 1 clip distally on the cystic duct. It was then transected using endoscopic scissors. Once safely away from the kurtis hepatitis, the gallbladder was dissected free from the liver bed using hook electrocautery. Hemostasis was achieved along the way. The gallbladder was removed completely and then removed through the subxiphoid port. The liver bed was then inspected. Hemostasis appeared adequate, and our clips appeared secure. The area was gently irrigated with sterile saline. No other abnormalities were seen. The patient was flattened out in bed, and 1 final inspection was made around the abdominal cavity. The subxiphoid port was removed, and a Jose Leila cone was used to approximate the fascia with an 0-Vicryl simple interrupted suture. The remaining ports were then removed under direct visualization, the camera was removed, and the pneumoperitoneum was released. The skin of the incisions was approximated using 4-0 Monocryl subcuticular sutures. Exofin glue was applied on top. The patient was then awakened from anesthesia, extubated, and transferred to recovery. Estimated Blood Loss 10 Pathology Yes (Gallbladder) Complications No immediate complications Condition Stable Disposition Floor [facility] Billing Surgery - Charge Forward: Surgery Billing
[2023-12-29] MEDS: fentaNYL CITRATE INJ (*CRX) 100 MCG/2 ML VIAL 25 MCG IV PUSH ×2 (13:57→14:10)
--- NOTE | 2023-12-29 15:44 | P.PNGI_ITS ---
Progress Note: A&P Assessment and Plan (1) Gallstone pancreatitis: Code(s): K85.10 - Biliary acute pancreatitis without necrosis or infection Status: Acute Assessment and Plan: s/p lap elizabeth, normal ioc diet per surgery, doing better will follow as needed (2) Elevated LFTs: Code(s): R79.89 - Other specified abnormal findings of blood chemistry Status: Acute Assessment and Plan: normalization of liver enzymes (3) Nausea and vomiting: Qualifiers: Vomiting type: bilious vomiting Qualified Code(s): R11.14 - Bilious vomiting Code(s): R11.2 - Nausea with vomiting, unspecified Status: Acute Assessment and Plan: antiemetics prn (4) Generalized abdominal pain: Code(s): R10.84 - Generalized abdominal pain Status: Acute Assessment and Plan: better Subjective Date/time seen: 12/29/23 15:44 Interval history: s/p lap elizabeth, normal ioc she is recovering from surgery and doing ok Review of Systems Review of Systems: All systems reviewed & are unremarkable except as noted in HPI and below Exam Const: General: comfortable and no acute distress HENMT: Face/Nose/Sinus: Normal nares present Eyes: General: appearance normal, both eyes and all related structures Neck: Neck: no JVD Resp: Auscultation: clear to auscultation bilaterally Cardio: Rate: regular rate Rhythm: regular rhythm GI: Inspection: non-distended GI Palp: Yes Soft to palpation and Yes Tenderness to palpation present (GI) (minimal pain from recent surgery) Auscultation: normal bowel sounds Skin: General skin exam: normal color Neuro: Speech: normal speech Motor exam (neuro): 5/5 motor strength present throughout Extrem: General: normal to inspection Psych: Mental Status: mental status grossly normal Objective Data Vital Signs Vital Signs: Vital Signs - 24 hr 12/28/23 18:02 12/28/23 18:59 12/28/23 20:07 Temperature 102 F H 99.8 F H Pulse Rate 90 Respiratory Rate Blood Pressure Pulse Oximetry Oxygen Delivery Oxygen Flow Rate 12/28/23 20:00 12/28/23 21:12 12/29/23 00:06 Temperature 98.5 F 100.6 F H Pulse Rate 90 Respiratory Rate 18 Blood Pressure 131/74 Pulse Oximetry 93 Oxygen Delivery Room Air Oxygen Flow Rate 12/29/23 01:03 12/29/23 05:46 12/29/23 07:42 Temperature 98.6 F 97.8 F Pulse Rate 84 84 Respiratory Rate 18 Blood Pressure 116/52 L Pulse Oximetry 92 Oxygen Delivery Oxygen Flow Rate 12/29/23 07:52 12/29/23 10:30 12/29/23 13:13 Temperature 100.1 F H 98.3 F Pulse Rate 81 75 Respiratory Rate 16 19 Blood Pressure 137/70 116/81 Pulse Oximetry 94 96 Oxygen Delivery Room Air Room Air Simple Face Mask Oxygen Flow Rate 10 12/29/23 13:28 12/29/23 13:43 12/29/23 13:58 Temperature Pulse Rate 77 79 77 Respiratory Rate 22 H 23 H 29 H Blood Pressure 119/69 118/71 114/83 Pulse Oximetry 99 94 94 Oxygen Delivery Simple Face Mask Nasal Cannula Nasal Cannula Oxygen Flow Rate 10 2 2 12/29/23 14:13 12/29/23 14:35 12/29/23 14:50 Temperature 97.2 F L 97.4 F L Pulse Rate 78 79 82 Respiratory Rate 27 H 18 18 Blood Pressure 118/69 109/56 L 112/56 L Pulse Oximetry 96 93 89 L Oxygen Delivery Nasal Cannula Oxygen Flow Rate 2 Intake/Output Intake/Output: Intake & Output 12/26/23 12/27/23 12/28/23 12/29/23 23:59 23:59 23:59 23:59 Intake Total 1520 2240 3996.7 1642.7 Balance 1520 2240 3996.7 1642.7 Meds/Results Medications: Active Medications Generic Name Dose Route Start Last Admin Trade Name Freq PRN Reason Stop Dose Admin Acetaminophen 1,000 mg 12/27/23 20:25 12/29/23 00:06 Acetaminophen 500 Mg Tablet PO 1,000 mg Q6H PRN Administration Mild Pain (1-3) or Fever Hydrocodone Bitart/Acetaminophen 1 tab 12/29/23 15:36 Hydrocodone/Acetaminophen (*Crx) 5-325 Mg Tablet PO Q4H PRN Pain Rated 4-6 Hydrocodone Bitart/Acetaminophen 1 tab 12/29/23 15:36 Hydrocodone/Acetaminophen (*Crx) 7.5-325 Mg Tablet PO Q4H PRN Pain Rated 7-10 Albuterol 1 puff 12/26/23 05:33 12/27/23 18:45 Albuterol Sulfate (*Sp) Aerosol 1 Puff INHALATION 1 puff Q4HRT PRN Administration Shortness Of Breath Or Wheezing Carvedilol 12.5 mg 12/26/23 09:00 12/29/23 07:42 Carvedilol 12.5 Mg Tablet PO 12.5 mg Q12HR ANGEL Administration Duloxetine HCl 20 mg 12/26/23 09:00 12/29/23 07:42 Duloxetine Hcl 20 Mg Capsule.Dr PO 20 mg BID ANGEL Administration Enoxaparin Sodium 40 mg 12/26/23 09:00 12/29/23 07:42 Enoxaparin 40 Mg/0.4 Ml Syringe SUB-Q Not Given DAILY [facility] Felodipine 10 mg 12/26/23 21:00 12/28/23 20:06 Felodipine 5 Mg Tab Cr PO 01/25/24 20:59 10 mg HS ANGEL Administration Hydromorphone HCl 1 mg 12/29/23 15:36 Hydromorphone Hcl Inj (*Crx) 1 Mg/Ml Syr IV PUSH Q2H PRN Breakthrough Pain Rated 7-10 or NPO Hydromorphone HCl 0.5 mg 12/29/23 15:36 Hydromorphone Hcl Inj (*Crx) 1 Mg/Ml Syr IV PUSH Q2H PRN Breakthrough Pain Rated 4-6 or NPO Piperacillin/Tazobactam/Dextrose 3.375 gm in 50 mls @ 100 mls/hr 12/28/23 18:00 12/29/23 15:38 Zosyn 3.375 Gm/Ns 50 Ml IVPB Not Given Q6H ANGEL Lactated Ringer's 1,000 mls @ 100 mls/hr 12/29/23 15:36 Lr - Lactated Ringers Iv IV CONT 12/30/23 01:35 .Q10H ONE Metoclopramide HCl 10 mg 12/26/23 08:11 Metoclopramide Hcl Inj 10 Mg/2 Ml Vial IV PUSH Q6H PRN Nausea And Vomiting Naloxone HCl 0.1 mg 12/29/23 15:36 Naloxone Hcl 0.4 Mg/Ml Vial IV PUSH Q2M PRN Opiate Reversal Ondansetron HCl 4 mg 12/26/23 05:34 Ondansetron Inj 4 Mg/2 Ml Vial IV PUSH Q6H PRN Nausea And Vomiting Ondansetron HCl 4 mg 12/29/23 15:36 Ondansetron Inj 4 Mg/2 Ml Vial IV PUSH Q4H PRN Nausea And Vomiting Radiology Results: ITS Impressions Abdomen Ultrasound 12/26/23 08:53 IMPRESSION: Cholelithiasis with thickened wall which may raise the possibility of cholecystitis. Clinical correlation and follow-up advised. Otherwise, Unremarkable limited ultrasound of the abdomen. Cholangiogram,Operative 12/29/23 14:56 IMPRESSION: 1. No choledocholithiasis. Labs Labs: Laboratory Results - last 24 hr 12/29/23 06:04 WBC 14.9 H RBC 4.13 L Hgb 11.1 L Hct 36.0 L MCV 87.2 MCH 26.9 MCHC 30.8 L RDW 13.7 Plt Count 198 MPV 11.1 H Immature Gran % (Auto) 1.0 H Neut % (Auto) 75.9 H Lymph % (Auto) 11.[address] [place] % (Auto) 7.4 Eos % (Auto) 4.2 Baso % (Auto) 0.5 Lymph # (Auto) 1.64 [place] # (Auto) 1.1 H Eos # (Auto) 0.6 H Baso # (Auto) 0.1 Abs Immat Gran (auto) 0.15 H Absolute Neuts (auto) 11.3 H Absolute Nucleated RBC 0.000 Nucleated RBC % 0.0 Sodium 136 L Potassium 3.7 Chloride 103 Carbon Dioxide 28 Anion Gap 5 BUN 7 Creatinine 0.50 L Estim Creat Clear Calc 114 Estimated GFR > 60 Glucose 116 H Calcium 8.5 Total Bilirubin 1.1 AST 18 ALT 34 Alkaline Phosphatase 89 Total Protein 5.0 L Albumin 2.7 L Lipase 55
[2023-12-29] MEDS: HYDROcodone/acetaminophen (*CRX) 5-325 MG TABLET 1 TAB PO (18:01)
[2023-12-29] MEDS: FELODIPINE 5 MG TAB CR 10 MG PO (20:43)
[2023-12-29] MEDS: HYDROmorphone HCL INJ (*CRX) 1 MG/ML SYR 0.5 MG IV PUSH (20:51)
[2023-12-30] MEDS: PIPERACILLN/TAZ 3.375GM/NS50ML 3.375 GM/50 ML BAG IVPB ×2 (00:19→05:16)
[2023-12-30 00:40] VITALS: BP 107/60; PULSE 78; RESP 16; TEMP 37.3; O2SAT 93
[2023-12-30 04:38] VITALS: BP 102/54; PULSE 81; RESP 16; TEMP 36.8; O2SAT 91
[2023-12-30] MEDS: HYDROcodone/acetaminophen (*CRX) 5-325 MG TABLET 1 TAB PO ×3 (05:16→12:58)
[2023-12-30 08:12] VITALS: BP 119/73; PULSE 80; RESP 18; TEMP 36.9; O2SAT 95
[2023-12-30 09:38] VITALS: PULSE 88
[2023-12-30] MEDS: carvediloL 12.5 MG TABLET PO (09:38)
[2023-12-30] MEDS: DULoxetine HCL 20 MG CAPSULE.DR PO (09:38)
--- NOTE | 2023-12-30 09:43 | PM.IMPN ---
Progress Note: A&P Assessment and Plan (1) Acute pancreatitis: Qualifiers: Acute pancreatitis complication: no infection or necrosis Pancreatitis type: idiopathic Qualified Code(s): K85.00 - Idiopathic acute pancreatitis without necrosis or infection Code(s): K85.90 - Acute pancreatitis without necrosis or infection, unspecified Status: Inactive (2) Elevated liver enzymes: Code(s): R74.8 - Abnormal levels of other serum enzymes Status: Acute (3) Essential hypertension: Code(s): I10 - Essential (primary) hypertension Status: Acute Plan Acute pancreatitis Patient has elevated total bilirubin, alk-phos, elevated liver enzymes, CT scan shows no gallstone,or duct dilatation. Ultrasound showed gallstone, and thickening of wall of gallbladder Optimize pain management Start fluid resuscitation with lactated Ringer Keep patient NPO Consult GI for evaluation treatment: Diagnosed with GS pancreatitis and elevated liver enzymes, ultrasound showed cholelithiasis, she never had previous episode, only social drinker. Plan is to continue with iv fluids, pain control, npo, surgery on board- interval elizabeth once pancreatitis better. CT scan with normal bile duct size. 12/27- lipase trending down Acute cholecystitis with gallstone Ultrasound suggests acute cholecystitis with gallstone Start Zosyn IV Consult general surgeon for evaluation treatment NOte reviewed: cholelithiasis does appear to be the likely cause of her pancreatitis. Will continue to allow pancreatitis to resolve and follow along with patient. Once pancreatitis has resolved, will plan to proceed with laparoscopic cholecystectomy with cholangiography. 12/27- still pain- ruq- on/off fevers- started on zosyn- for potential cholangitis. surgery recommended proceeding with laparoscopic cholecystectomy with IOC, poss open NPO at midnight 12/28- laparoscopic cholecystectomy with IOC, poss open s/p lap elizabeth-recoverin well-surgery following Elevated liver enzymes Patient is found have elevated bilirubin, alk-phos, liver enzymes, Ultrasound and CT today show bile duct dilatation Patient passed gallstone Follow-up CMP Management per GI Asthma Stable Continue albuterol inhaler 1 puff q.4 hours p.r.n. Essential hypertension Patient is on carvedilol 12.5 mg b.i.d. p.o., felodipine 10 mg q.h.s. p.o. Will hold oral medications if patient cannot tolerate BP reviewed- stable Sepsis Patient has hypothermia, leukocytosis, tachycardia tachypnea, meeting criteria of SIRS Possible due to acute cholecystitis Monitor vital signs, CBC and a sed infection Zosyn IV Follow-up blood culture 12/28- wbc improving Subjective Date/time seen: 12/30/23 09:43 Interval history: s/p lap elizabeth. diet per surgery she is doing well this am Review of Systems Constitutional: Constitutional: Reports chills Cardiovascular: Cardiovascular: Denies chest pain Respiratory: Respiratory: Denies chest congestion Gastrointestinal: Gastrointestinal: Reports abdominal pain, Reports nausea and Denies vomiting Musculoskeletal: Musculoskeletal: Denies back pain Exam Narrative: GENERAL: Pleasant, in no acute distress. Well-nourished.in bed - EYES: EOMI. Anicteric. - HENT: Moist mucous membranes. - LUNGS: Clear to auscultation bilaterally, no wheezing, rhonchi, or rales. - CARDIOVASCULAR: Regular rate and rhythm. No murmur. No JVD. Tachycardia - ABDOMEN: Soft, epigastric tender and non-distended. No palpable masses. - EXTREMITIES: No edema. Peripheral pulses 2+. Non-tender. - NEUROLOGIC: No focal neurological deficits. CN II-XII grossly intact. - PSYCHIATRIC: Awake, Alert and oriented x 3. Appropriate mood and affect. - SKIN: No rashes or lesions. Warm. - LYMPH: No cervical lymphadenopathy. Const: General: comfortable Objective Data Vital Signs Vital Signs: Vital Signs - 24 hr 12/29/23 10:30 12/29/23 13:13 12/29/23 13:28 Temperature 100.1 F H 98.3 F Pulse Rate 81 75 77 Respiratory Rate 16 19 22 H Blood Pressure 137/70 116/81 119/69 Pulse Oximetry 94 96 99 Oxygen Delivery Room Air Simple Face Mask Simple Face Mask Oxygen Flow Rate 10 10 12/29/23 13:43 12/29/23 13:58 12/29/23 14:13 Temperature Pulse Rate 79 77 78 Respiratory Rate 23 H 29 H 27 H Blood Pressure 118/71 114/83 118/69 Pulse Oximetry 94 94 96 Oxygen Delivery Nasal Cannula Nasal Cannula Nasal Cannula Oxygen Flow Rate 2 2 2 12/29/23 14:35 12/29/23 14:50 12/29/23 15:20 Temperature 97.2 F L 97.4 F L 97.6 F Pulse Rate 79 82 86 Respiratory Rate 18 18 18 Blood Pressure 109/56 L 112/56 L 114/62 Pulse Oximetry 93 89 L 94 Oxygen Delivery Oxygen Flow Rate 12/29/23 16:20 12/29/23 20:43 12/29/23 20:54 Temperature 97.9 F 99.5 F Pulse Rate 82 90 80 Respiratory Rate 18 18 Blood Pressure 112/70 120/67 Pulse Oximetry 98 94 Oxygen Delivery Oxygen Flow Rate 12/30/23 00:40 12/30/23 04:38 12/30/23 08:12 Temperature 99.1 F 98.3 F 98.4 F Pulse Rate 78 81 80 Respiratory Rate 16 16 18 Blood Pressure 107/60 102/54 L 119/73 Pulse Oximetry 93 91 95 Oxygen Delivery Oxygen Flow Rate 12/30/23 09:38 Temperature Pulse Rate 88 Respiratory Rate Blood Pressure Pulse Oximetry Oxygen Delivery Oxygen Flow Rate Intake/Output Intake/Output: Intake & Output 12/27/23 12/28/23 12/29/23 12/30/23 23:59 23:59 23:59 23:59 Intake Total 2240 3996.7 2134.7 250 Balance 2240 3996.7 2134.7 250 Meds/Results Medications: Active Medications Generic Name Dose Route Start Last Admin Trade Name Freq PRN Reason Stop Dose Admin Acetaminophen 1,000 mg 12/27/23 20:25 12/29/23 00:06 Acetaminophen 500 Mg Tablet PO 1,000 mg Q6H PRN Administration Mild Pain (1-3) or Fever Hydrocodone Bitart/Acetaminophen 1 tab 12/29/23 15:36 12/30/23 09:41 Hydrocodone/Acetaminophen (*Crx) 5-325 Mg Tablet PO 1 tab Q4H PRN Administration Pain Rated 4-6 Hydrocodone Bitart/Acetaminophen 1 tab 12/29/23 15:36 Hydrocodone/Acetaminophen (*Crx) 7.5-325 Mg Tablet PO Q4H PRN Pain Rated 7-10 Albuterol 1 puff 12/26/23 05:33 12/27/23 18:45 Albuterol Sulfate (*Sp) Aerosol 1 Puff INHALATION 1 puff Q4HRT PRN Administration Shortness Of Breath Or Wheezing Carvedilol 12.5 mg 12/26/23 09:00 12/30/23 09:38 Carvedilol 12.5 Mg Tablet PO 12.5 mg Q12HR ANGEL Administration Duloxetine HCl 20 mg 12/26/23 09:00 12/30/23 09:38 Duloxetine Hcl 20 Mg Capsule.Dr PO 20 mg BID ANGEL Administration Enoxaparin Sodium 40 mg 12/26/23 09:00 12/30/23 09:39 Enoxaparin 40 Mg/0.4 Ml Syringe SUB-Q Not Given DAILY ANGEL Felodipine 10 mg 12/26/23 21:00 12/29/23 20:43 Felodipine 5 Mg Tab Cr PO 01/25/24 20:59 10 mg HS ANGEL Administration Hydromorphone HCl 1 mg 12/29/23 15:36 Hydromorphone Hcl Inj (*Crx) 1 Mg/Ml Syr IV PUSH Q2H PRN Breakthrough Pain Rated 7-10 or NPO Hydromorphone HCl 0.5 mg 12/29/23 15:36 12/29/23 20:51 Hydromorphone Hcl Inj (*Crx) 1 Mg/Ml Syr IV PUSH 0.5 mg Q2H PRN Administration Breakthrough Pain Rated 4-6 or NPO Piperacillin/Tazobactam/Dextrose 3.375 gm in 50 mls @ 100 mls/hr 12/28/23 18:00 12/30/23 05:46 Zosyn 3.375 Gm/Ns 50 Ml IVPB Infused Q6H [facility] Infusion Metoclopramide HCl 10 mg 12/26/23 08:11 Metoclopramide Hcl Inj 10 Mg/2 Ml Vial IV PUSH Q6H PRN Nausea And Vomiting Naloxone HCl 0.1 mg 12/29/23 15:36 Naloxone Hcl 0.4 Mg/Ml Vial IV PUSH Q2M PRN Opiate Reversal Ondansetron HCl 4 mg 12/26/23 05:34 Ondansetron Inj 4 Mg/2 Ml Vial IV PUSH Q6H PRN Nausea And Vomiting Ondansetron HCl 4 mg 12/29/23 15:36 Ondansetron Inj 4 Mg/2 Ml Vial IV PUSH Q4H PRN Nausea And Vomiting Radiology Results: ITS Impressions Abdomen Ultrasound 12/26/23 08:53 IMPRESSION: Cholelithiasis with thickened wall which may raise the possibility of cholecystitis. Clinical correlation and follow-up advised. Otherwise, Unremarkable limited ultrasound of the abdomen. Cholangiogram,Operative 12/29/23 14:56 IMPRESSION: 1. No choledocholithiasis.
--- NOTE | 2023-12-30 11:08 | PM.PNGS ---
Progress Note: A&P Assessment and Plan (1) Gallstone pancreatitis: Code(s): K85.10 - Biliary acute pancreatitis without necrosis or infection Status: Acute Assessment and Plan: s/p interval elizabeth, doing well, ok to dc from surgical standpoint, f/u c Dr. Benavides in 2 wks Subjective Subjective Date/Time Seen: 12/30/23 11:08 Interval history: feels good, mild incisional pain, carmela diet Review of Systems Review of Systems: All systems reviewed & are unremarkable except as noted in HPI and below Exam Const: General: cooperative, comfortable and no acute distress Resp: Auscultation: clear to auscultation bilaterally Cardio: Rate: regular rate Rhythm: regular rhythm GI: Inspection: normal to inspection, distended and incision GI Palp: Yes abdominal tenderness and Yes Soft to palpation Objective Data Vital Signs Vital Signs: Vital Signs - 24 hr 12/29/23 13:13 12/29/23 13:28 12/29/23 13:43 Temperature 36.8 C Pulse Rate 75 77 79 Respiratory Rate 19 22 H 23 H Blood Pressure 116/81 119/69 118/71 Pulse Oximetry 96 99 94 Oxygen Delivery Simple Face Mask Simple Face Mask Nasal Cannula Oxygen Flow Rate 10 10 2 12/29/23 13:58 12/29/23 14:13 12/29/23 14:35 Temperature 36.2 C L Pulse Rate 77 78 79 Respiratory Rate 29 H 27 H 18 Blood Pressure 114/83 118/69 109/56 L Pulse Oximetry 94 96 93 Oxygen Delivery Nasal Cannula Nasal Cannula Oxygen Flow Rate 2 2 12/29/23 14:50 12/29/23 15:20 12/29/23 16:20 Temperature 36.3 C L 36.4 C 36.6 C Pulse Rate 82 86 82 Respiratory Rate 18 18 18 Blood Pressure 112/56 L 114/62 112/70 Pulse Oximetry 89 L 94 98 Oxygen Delivery Oxygen Flow Rate 12/29/23 20:43 12/29/23 20:54 12/30/23 00:40 Temperature 37.5 C 37.3 C Pulse Rate 90 80 78 Respiratory Rate 18 16 Blood Pressure 120/67 107/60 Pulse Oximetry 94 93 Oxygen Delivery Oxygen Flow Rate 12/30/23 04:38 12/30/23 08:12 12/30/23 09:38 Temperature 36.8 C 36.9 C Pulse Rate 81 80 88 Respiratory Rate 16 18 Blood Pressure 102/54 L 119/73 Pulse Oximetry 91 95 Oxygen Delivery Oxygen Flow Rate Intake/Output Intake/Output: Intake & Output 12/27/23 12/28/23 12/29/23 12/30/23 23:59 23:59 23:59 23:59 Intake Total 2240 3996.7 2134.7 250 Balance 2240 3996.7 2134.7 250 Meds/Results Medications: Active Medications Generic Name Dose Route Start Last Admin Trade Name Freq PRN Reason Stop Dose Admin Acetaminophen 1,000 mg 12/27/23 20:25 12/29/23 00:06 Acetaminophen 500 Mg Tablet PO 1,000 mg Q6H PRN Administration Mild Pain (1-3) or Fever Hydrocodone Bitart/Acetaminophen 1 tab 12/29/23 15:36 12/30/23 09:41 Hydrocodone/Acetaminophen (*Crx) 5-325 Mg Tablet PO 1 tab Q4H PRN Administration Pain Rated 4-6 Hydrocodone Bitart/Acetaminophen 1 tab 12/29/23 15:36 Hydrocodone/Acetaminophen (*Crx) 7.5-325 Mg Tablet PO Q4H PRN Pain Rated 7-10 Albuterol 1 puff 12/26/23 05:33 12/27/23 18:45 Albuterol Sulfate (*Sp) Aerosol 1 Puff INHALATION 1 puff Q4HRT PRN Administration Shortness Of Breath Or Wheezing Carvedilol 12.5 mg 12/26/23 09:00 12/30/23 09:38 Carvedilol 12.5 Mg Tablet PO 12.5 mg Q12HR ANGEL Administration Duloxetine HCl 20 mg 12/26/23 09:00 12/30/23 09:38 Duloxetine Hcl 20 Mg Capsule.Dr PO 20 mg BID ANGEL Administration Enoxaparin Sodium 40 mg 12/26/23 09:00 12/30/23 09:39 Enoxaparin 40 Mg/0.4 Ml Syringe SUB-Q Not Given DAILY ANGEL Felodipine 10 mg 12/26/23 21:00 12/29/23 20:43 Felodipine 5 Mg Tab Cr PO 01/25/24 20:59 10 mg HS ANGEL Administration Hydromorphone HCl 1 mg 12/29/23 15:36 Hydromorphone Hcl Inj (*Crx) 1 Mg/Ml Syr IV PUSH Q2H PRN Breakthrough Pain Rated 7-10 or NPO Hydromorphone HCl 0.5 mg 12/29/23 15:36 12/29/23 20:51 Hydromorphone Hcl Inj (*Crx) 1 Mg/Ml Syr IV PUSH 0.5 mg Q2H PRN Administration Breakthrough Pain Rated 4-6 or NPO Piperacillin/Tazobactam/Dextrose 3.375 gm in 50 mls @ 100 mls/hr 12/28/23 18:00 12/30/23 05:46 Zosyn 3.375 Gm/Ns 50 Ml IVPB Infused Q6H ANGEL Infusion Metoclopramide HCl 10 mg 12/26/23 08:11 Metoclopramide Hcl Inj 10 Mg/2 Ml Vial IV PUSH Q6H PRN Nausea And Vomiting Naloxone HCl 0.1 mg 12/29/23 15:36 Naloxone Hcl 0.4 Mg/Ml Vial IV PUSH Q2M PRN Opiate Reversal Ondansetron HCl 4 mg 12/26/23 05:34 Ondansetron Inj 4 Mg/2 Ml Vial IV PUSH Q6H PRN Nausea And Vomiting Ondansetron HCl 4 mg 12/29/23 15:36 Ondansetron Inj 4 Mg/2 Ml Vial IV PUSH Q4H PRN Nausea And Vomiting Radiology Results: ITS Impressions Abdomen Ultrasound 12/26/23 08:53 IMPRESSION: Cholelithiasis with thickened wall which may raise the possibility of cholecystitis. Clinical correlation and follow-up advised. Otherwise, Unremarkable limited ultrasound of the abdomen. Cholangiogram,Operative 12/29/23 14:56 IMPRESSION: 1. No choledocholithiasis.
--- NOTE | 2023-12-30 14:17 | P.DS_ITS ---
DS: Admitting Diagnosis Discharge Date 12/29 Admitting Diagnosis abd pain DS: Discharge Diagnosis Discharge Diagnosis (1) Acute pancreatitis: Qualifiers: Acute pancreatitis complication: no infection or necrosis Pancreatitis type: idiopathic Qualified Code(s): K85.00 - Idiopathic acute pancreatitis without necrosis or infection Code(s): K85.90 - Acute pancreatitis without necrosis or infection, unspecified Status: Inactive (2) Elevated liver enzymes: Code(s): R74.8 - Abnormal levels of other serum enzymes Status: Acute (3) Essential hypertension: Code(s): I10 - Essential (primary) hypertension Status: Acute DS: Summary Hospital Course Hospital Course: 58 years old with history of hypertension, hypothyroidism, asthma present ED with a chief complaint of abdomen pain. Patient started abdomen pain yesterday afternoon, patient has diffuse abdomen pain since yesterday morning. The pain is getting worse gradually, patient also has nausea vomiting. Patient denies diarrhea. Patient denies chest pain, shortness of breath, cough cough, dysuria. Upon arrival to ED, patient has hypothermia 36 0.6, tachycardia tachypnea, blood pressure stable, no O2 desaturation on room air, lab showed leukocytosis 19,200, elevated total bilirubin 1.4, elevated liver enzymes and alk-phos, lipase move the 1500. CT showed acute pancreatitis. no evidence for pancreatic necrosis or pseudocyst. liver, spleen, gallbladder, adrenals and right kidney are within normal limits. Repeat ultrasound suggest acute cholecystitis with gallstone Gen surgery was consulted, GI was consulted Acute pancreatitis Patient has elevated total bilirubin, alk-phos, elevated liver enzymes- all improved CT scan shows no gallstone,or duct dilatation. Ultrasound showed gallstone, and thickening of wall of gallbladder Acute cholecystitis with gallstone Ultrasound suggests acute cholecystitis with gallstone Zosyn IV s/p interval elizabeth (12/28), doing well, f/u c Dr. Bauer in 2 wks Status at Discharge Functional status at discharge: independent ambulation Overall status at discharge: patient is not back to baseline Time Spent with Patient Time attestation: Total time spent providing and/or coordinating discharge services: Time spent: Greater than 30 minutes Exam Narrative: GENERAL: Pleasant, in no acute distress. Well-nourished.in bed - EYES: EOMI. Anicteric. - HENT: Moist mucous membranes. - LUNGS: Clear to auscultation bilateral ly, no wheezing, rhonchi, or rales. - CARDIOVASCULAR: Regular rate and rhyth m. No murmur. No JVD. Tachycardia - ABDOMEN: Soft, epigastric tender and n on-distended. No palpable masses. - EXTREMITIES: No edema. Peripheral puls es 2+. Non-tender. - NEUROLOGIC: No focal neurological defi cits. CN II-XII grossly intact. - PSYCHIATRIC: Awake, Alert and oriented x 3. Appropriate mood and affect. - SKIN: No rashes or lesions. Warm. - LYMPH: No cervical lymphadenopathy. Const: General: comfortable Resp: Effort & Inspection: normal respiratory effort DS: Data Data Completed and Pending Completed studies during hospitalization: abd ultrasound Pending studies at discharge: Pending at discharge 12/29/23 12:28 Surgical [PTH] Routine Labs on day of discharge: Preliminary micro results at discharge 12/26/23 09:10 Blood Culture - Preliminary Blood 12/26/23 08:58 Blood Culture - Preliminary Blood Discharge Plan Discharge Consulting providers: Kris Calixto; Hamilton Bauer Discharging Clinician: Dalila Pablo Patient Disposition: Home, Self-Care Activity: as tolerated Diet: as tolerated Wound Care Instructions: incision open to air Discharge Instructions: DISCHARGE INSTRUCTION SHEET FOR HERNIA, GALLBLADDER AND APPENDIX SURGERIES DR. BAUER PATIENT TO TAKE HOME 1. May shower in 24 hours, no soaking in bath x 2weeks. 2. Call office for: * Wound increasingly painful or bleeding * Vomiting * Fever of greater than 101 degrees 3. If no bowel movement for three days, take 1 oz. (30 ml) Milk of Magnesia or MiraLax 17g 1 to 2 times daily. 4. No heavy lifting > 10-15 pounds x weeks for hernia repairs and 2 weeks for laparoscopic cholecystectomy or appendectomy. 5. No driving for 3 days or while taking narcotic pain medications. 6. Ice to surgical site for 48 hours (30 min on, then 30 min off). 7. Up walking 10-30 minutes three times per day. 8. Resume previous home medications. 9. Follow-up 10-14 days in office for wound check or as previously scheduled. ([phone]) 10. Oral pain medications prescription to be sent to pharmacy. Take Tylenol 500mg every 6 hours and Ibuprofen 600mg every 6 hours for the first 2 days, then as needed. 11. NUTRITION: Start out by drinking fluids and increase your diet as tolerated. If you experience nausea, try dry toast, crackers, and 7-UP. If nausea or vomiting persists, contact your surgeon?s office. 12. Gallbladders-Low Fat Diet for 2 weeks (send care note of low fat diet) 13. Inguinal Hernias-wear scrotal support for 48 hours 14. Abdominal Hernias-if sent home with abdominal binder, wear for the first 2 weeks (may remove to shower or at night to sleep). Revised June 2018 Patient Instructions: Antibiotic Form Stand Alone Forms: General Discharge Information Follow-up/Referrals: Hamilton Bauer DO [Physician] - 2 Weeks Discharge Medications: New hydrocodone-acetaminophen 5-325 mg tablet 1 tablet PO Q6H PRN (Reason: pain) Qty: 20 0RF Continued Zepbound 10 mg/0.5 mL pen injector 10 mg SUBCUT WEEKLY Rx Instructions: MONDAY carvedilol [Coreg] 6.25 mg tablet 12.5 mg PO BID losartan-hydrochlorothiazide [Hyzaar] 100-12.5 mg tablet 1 tablet PO DAILY felodipine 10 mg tablet extended release 24 hr 10 mg PO HS albuterol sulfate 90 mcg/actuation HFA aerosol inhaler 1 puff INHALATION Q4H PRN (Reason: Shortness Of Breath Or Wheezing) duloxetine 20 mg capsule,delayed release(DR/EC) 20 mg PO BID Date of admission: 12/26/23 05:35 Primary Care Provider: Ishaan Neal Admitting Provider: Eugene Fried V. Attending physician on admission: Eugene Fried V. Condition: Improved
[2023-12-30 14:30] VITALS: BP 107/66; PULSE 72; RESP 18; TEMP 36.6; O2SAT 93
== END 2023-12-30 15:35 | disposition home or self-care (01) | DRG 418 ==
PROVIDERS: Hospitalist; Nurse Practitioner Family; Surgery; Admitting Provider Internal Medicine; PCP Internal Medicine; Visit Provider Nurse Practitioner
PROC: 0FT44ZZ Resection of Gallbladder, Percutaneous Endoscopic Approach (ICD-10-PCS; CPT 47562; principal; 2023-12-29 11:00)
DX: K85.10 Biliary acute pancreatitis without necrosis or infection (principal); K80.00 Calculus of gallbladder with acute cholecystitis without obstruction; K59.03 Drug induced constipation; T38.3X5A Adverse effect of insulin and oral hypoglycemic [antidiabetic] drugs, initial encounter; E03.9 Hypothyroidism, unspecified; I10 Essential (primary) hypertension; J45.909 Unspecified asthma, uncomplicated; R11.14 Bilious vomiting; R68.0 Hypothermia, not associated with low environmental temperature; R74.8 Abnormal levels of other serum enzymes; Z90.710 Acquired absence of both cervix and uterus; Z28.21 Immunization not carried out because of patient refusal
CPT/HCPCS: 36415; 74300; 76705; 80048; 80053; 83690; 83735; 84100; 85025; 85027; 85610; 85730; 87040; 88304; 93005; 94640; A9270; J1100; J1171; J1650; J2003; J2250; J2405; J2543; J2704; J3010; J7030; J7050; J7120; J7121; Q9966

== ENCOUNTER 2024-01-12 14:30 | Emergency (ER) | payer OTHER, SELFPAY ==
--- NOTE | ~2024-01-12 | CT_ITS ---
EXAMINATION: CT abdomen pelvis w con DATE: 01/12/2024 20:19 INDICATION: Postoperative abdominal pain. TECHNIQUE: Computed tomography (CT) of the abdomen and pelvis was performed with 100 mL Omnipaque 350 intravenous contrast. Automated exposure control and iterative reconstruction technique were employe d. The dose-length product was 764.80 mGy-cm. COMPARISON: CT abdomen and pelvis 12/26/2023 FINDINGS: The visualized portions of the lung bases demonstrate mild atelectasis. No pleural effusion . The heart size is normal. No pericardial effusion. The liver and spleen are normal. No changes of c holecystectomy. The pancreas enhances throughout. There are multiple acute necrotic collections aroun d the pancreas measuring up to 3.5 x 1.8 cm. There is nodularity of the fat around the pancreas. The adrenal glands are normal. There is cortical thinning of right kidney. There is a 10 mm mass of fat i n right kidney, consistent with an angiomyolipoma. There is a 2.5 cm mass of fat in left kidney, cons istent with an angiomyolipoma. There is diverticulosis of the colon without evidence of diverticuliti s. There are no dilated loops of bowel. The appendix is normal. There are no pathologically enlarged lymph nodes. There is no free intraperitoneal fluid. There is mild thoracic and lumbar spondylosis. T here is mild chronic anterior wedging of multiple vertebral bodies. IMPRESSION: 1. Acute necrotizing pancreatitis with worsened findings from 12/26/23. Reviewed, dictated and finalized at location A. D [employer]CENT PSYCHIATRIST
--- NOTE | ~2024-01-12 | XR_ITS ---
EXAMINATION: XR chest 2V DATE: 01/12/2024 15:14 INDICATION: Lower chest pain. TECHNIQUE: Frontal and lateral views of the chest were obtained. COMPARISON: CT abdomen and pelvis 12/26/2023 FINDINGS: There is mild atelectasis at left lung base. A calcified right lung nodule is consistent wi th old granulomatous disease. No pleural effusion or pneumothorax. The heart size is normal. Surgical clips in the right upper quadrant are likely from cholecystectomy. IMPRESSION: 1. Mild atelectasis at left lung base. Reviewed, dictated and finalized at location A. [facility] [employer]
[2024-01-12 14:33] VITALS: BP 141/85; PULSE 74; RESP 18; TEMP 36.8; O2SAT 99
--- NOTE | 2024-01-12 14:47 | ECG_ITS ---
Test Date: 2024-01-12 15:30:42 Measurements Intervals [place] Rate: 69 P: 4 IL: 137 QRS: -13 QRSD: 90 T: 7 QT: 361 QTc: 389 Interpretive Statements SINUS RHYTHM DELAYED PRECORDIAL R/S TRANSITION VOLTAGE CRITERIA FOR LVH BASELINE ARTIFACT- II, AVR, AVL, AVF BORDERLINE ECG No previous ECG available for comparison Electronically Signed On 01-12-2024 15:34:30 SR. [employer] by Gumaro Finn D.O.
--- NOTE | 2024-01-12 14:56 | ED_ITS ---
HPI - General Adult General Chief complaint: Recheck/Abnormal Lab/Rx <Gina NajeraFrederick King TINNING MACHINE SET UP OPERATOR - Last Filed: 01/12/24 14:59> Stated complaint: POST OP COMPLICATIONS <Gina Noman King APRN - Last Filed: 01/12/24 14:59> Time Seen by Provider: 01/12/24 14:30 <Ginaalta King TINNING MACHINE SET UP OPERATOR - Last Filed: 01/12/24 14:59> Focused HPI: Patient is a 58-year-old female who presents to the ER with complaints of right and left-sided abdominal and flank pain since her cholecystectomy on December 28. She reports the pain has worsened since then, especially on her left flank. Patient endorses she has had loose bowel movement since her surgery. She denies any urinary symptoms. Patient denies shortness of breath, headache, chest pain, or lower extremity swelling. GENERAL: Well-appearing, well-nourished, and in no acute distress. HEAD: Normocephalic, atraumatic. CHEST: Clear to auscultation. ?No respiratory distress. HEART: Regular rate and rhythm.? ABDOMEN: Extreme tenderness in LUQ and RUQ, especially with palpation in RUQ. + BS NEURO: ?Alert and oriented x3. Patient screened in triage and initial orders placed.? ?Additional care and disposition to be based upon?diagnostic testing and treatment. <Gina NajeraFrederick King APRN - Last Filed: 01/12/24 14:59> Focused HPI: Patient is a 58-year-old female who presents to the ER with complaints of right and left-sided abdominal and flank pain since her cholecystectomy on December 28. She reports the pain has worsened since then, especially on her left flank. Patient endorses she has had loose bowel movement since her surgery. She denies any urinary symptoms. Patient denies shortness of breath, headache, chest pain, or lower extremity swelling. GENERAL: Well-appearing, well-nourished, and in no acute distress. HEAD: Normocephalic, atraumatic. CHEST: Clear to auscultation. ?No respiratory distress. HEART: Regular rate and rhythm.? ABDOMEN: mild tenderness in LUQ and RUQ, especially with palpation in RUQ. + BS NEURO: ?Alert and oriented x3. Patient screened in triage and initial orders placed.? ?Additional care and disposition to be based upon?diagnostic testing and treatment. <Jorje Harvey MD - Last Filed: 01/12/24 22:01> History of Present Illness HPI narrative: Agree with HPI above. patient underwent a laparoscopic cholecystectomy by Dr. Benavides on 12/28 after finding gallstone pancreatitis causing her recent admission. Patient states that she has a follow-up appointment on Monday. Not had any constipation diarrhea, urinary complaints, subjective fevers at home, no nausea vomiting or diarrhea. Was otherwise in her normal state of health. Pain is persistent since her surgery. <Jorje Harvey MD - Last Filed: 01/12/24 22:01> Related Data Home medications: Home Medications Medication Instructions Recorded Confirmed carvedilol 6.25 mg tablet (Coreg) 12.5 mg PO BID 01/10/23 12/26/23 losartan 100 1 tablet PO DAILY 01/10/23 12/26/23 mg-hydrochlorothiazide 12.5 mg tablet (Hyzaar) tirzepatide (weight loss) 10 10 mg subcut WEEKLY 12/25/23 12/26/23 mg/0.5 mL subcutaneous pen injector (Zepbound) albuterol sulfate 90 mcg/actuation 1 puff inhalation Q4H PRN 12/26/23 12/26/23 aerosol inhaler Shortness Of Breath Or Wheezing duloxetine 20 mg capsule,delayed 20 mg PO BID 12/26/23 12/26/23 release felodipine 10 mg tablet,extended 10 mg PO HS 12/26/23 12/26/23 release 24 hr <Gina King TINNING MACHINE SET UP OPERATOR - Last Filed: 01/12/24 14:59> Allergies/adverse reactions: Allergies Allergy/AdvReac Type Severity Reaction Status Date / Time Sulfa (Sulfonamide Allergy Severe Rash Verified 12/25/23 23:45 Antibiotics) codeine Allergy Intermediate GI UPSET Verified 12/25/23 23:45 erythromycin base Allergy Unknown Unknown Verified 12/25/23 23:45 EMYCIN Allergy Severe RED,FLUSHED, Uncoded 01/10/23 15:47 PEELING SKIN <Gina King APRN - Last Filed: 01/12/24 14:59> Review of Systems Review of Systems: As reviewed above in HPI <Jorje Harvey MD - Last Filed: 01/12/24 22:01> [facility] Past Medical History Medical History: Medical History Asthma Gallstone pancreatitis Hypertension <Gina King, TINNING MACHINE SET UP OPERATOR - Last Filed: 01/12/24 14:59> Surgical History Surgical History: Surgical History History of total abdominal hysterectomy and bilateral salpingo-oophorectomy Hx of tonsillectomy <Gina King APRN - Last Filed: 01/12/24 14:59> Family History Family History: Family History Mother Hypertension Family history of arthritis Family history of chronic obstructive pulmonary disease Family history of emphysema Father Carcinoma of colon Malignant neoplasm of prostate Sibling Family history of malignant neoplasm of uterus <Gina King, TINNING MACHINE SET UP OPERATOR - Last Filed: 01/12/24 14:59> Social History Social History: Social History Smoking status: Never smoker Alcohol intake: current Drinks per week: 3 Substance use: never Do You Feel Safe in your Home?: No Lack of Transportation: No Lack of Food: Never True Current Housing: I Have Housing Concerned About Future Housing: No Difficulty Paying Gas/Electric Bills: No Difficulty Paying for Meds: No Currently Unemployed: No Education: Associate Degree Difficulty w/ Childcare or Family Care: No Spiritual care concerns: No <Gina King APRN - Last Filed: 01/12/24 14:59> Exam Narrative: GENERAL: [Well-appearing, well-nourished, and in no acute distress.] HEAD: [Normocephalic, atraumatic.] EYES: [PERRLA and EOMI.] ENT: Nares clear, no rhinorrhea or epistaxis. Mucous membranes moist. NECK: Supple. CHEST: [Clear to auscultation. No respiratory distress.] HEART: [Regular rate and rhythm]. No murmur heard. [Normal peripheral pulses.] ABDOMEN: [Soft, nondistended], [ mild tenderness to palpation in the epigastrium with mild tenderness to palpation along the left and right upper quadrants. No rebound or guarding. No peritonitis. No CVA tenderness.] Incisions appear clean, dry, intact without any signs of infection or irritation around it. EXTREMITIES: Normal range of motion. [No edema.] SKIN: Warm, dry, no rash. NEURO: [No focal deficits]. Alert and oriented [x3.] PSYCH: [Normal mood and affect.] <Jorje Harvey MD - Last Filed: 01/12/24 22:01> Course Vital Signs Vital signs: Vital Signs Temperature 36.8 C 01/12/24 14:33 Pulse Rate 74 01/12/24 14:33 Respiratory Rate 18 01/12/24 14:33 Blood Pressure 141/85 H 01/12/24 14:33 Pulse Oximetry 99 01/12/24 14:33 Oxygen Delivery Room Air 01/12/24 14:33 Temperature 36.7 C 01/12/24 21:49 Pulse Rate 75 01/12/24 21:49 Respiratory Rate 16 01/12/24 21:49 Blood Pressure 159/84 H 01/12/24 21:49 Pulse Oximetry 97 01/12/24 21:49 Oxygen Delivery Room Air 01/12/24 14:33 <Gina King, RAF - Last Filed: 01/12/24 14:59> Vital Signs Temperature 36.8 C 01/12/24 14:33 Pulse Rate 74 01/12/24 14:33 Respiratory Rate 18 01/12/24 14:33 Blood Pressure 141/85 H 01/12/24 14:33 Pulse Oximetry 99 01/12/24 14:33 Oxygen Delivery Room Air 01/12/24 14:33 Temperature 36.7 C 01/12/24 21:49 Pulse Rate 75 01/12/24 21:49 Respiratory Rate 16 01/12/24 21:49 Blood Pressure 159/84 H 01/12/24 21:49 Pulse Oximetry 97 01/12/24 21:49 Oxygen Delivery Room Air 01/12/24 14:33 <Jorje Harvey MD - Last Filed: 01/12/24 22:01> Medical Decision Making MDM Narrative Medical decision making narrative: 58-year-old female who is postop from a laparoscopic cholecystectomy for gallstone pancreatitis on 12/28 by General surgery here at the hospital. She has been having postoperative pain since this happened and still has epigastric pain and bilateral flank pain. Color primary care provider today and was endorsed to come to the ER for evaluation. Endorsing subjective fevers at home. No nausea, vomiting, diarrhea constipation. No urinary complaints. Abdomen is soft, nondistended, minimally tender to palpation in the epigastrium and around the incision sites the incisions appear clean, dry, intact. patient is otherwise comfortable and resting in her stretcher. Vital signs reassuring aside from stable hypertension. No fever, tachycardia, hypoxia. She otherwise appears well but differential diagnosis is broad including postoperative pain, postoperative complications such as bile leak or biloma. Appendicitis versus pancreatitis versus other intra-abdominal process not excluded. Laboratory studies were obtained including CBC, CMP, magnesium, EKG. A CT abdomen pelvis was ordered in addition to a fluid bolus and morphine/ Zofran for symptom control. Patient was re-evaluated had complete symptomatic resolution and was pain free. Patient states she feels improved. Her laboratory studies show a leukocytosis 11.7 but down trending from her previous lab several weeks prior. Likely residual. No anemia. Coag panel within normal limits, normal CMP, negative lipase. Normal renal and hepatic function. urine without signs of infection. Chest x-ray shows mild atelectasis of left lung base. CT abdomen pelvis shows necrotizing pancreatitis with slightly worsening findings compared to 12/25. Given these findings but her reassuring exam and reassuring laboratory studies I decided to reach out to the general surgeon Dr. Benavides who did her procedure 2 weeks prior. After reviewing the imaging findings and patient's labs and clinical assessment he was actually more reassured that this is likely sequela from the recent pancreatitis and expected development. Patient has a follow-up appointment with him in 3 days time and her pain is completely controlled at this time and she has prescription pain medications at home. I discussed the options with the patient including admission for observation and pain control versus outpatient follow-up with her primary care provider and general surgeon on Monday. Given patient's reassuring exam and labs as well as reassuring vitals I believe she is appropriate for a close outpatient follow-up and discharge and she was agreeable and would prefer this versus admission. after shared decision-making was had with the patient decision ultimately was for discharge home with outpatient follow-up appointment on Monday and strict return precautions including recurrence for pain, development nausea, vomiting, fevers, any other concerning features to the patient and she expressed underst anding of these instructions and verbalized understanding of the close follow-up needed including the instructions for bland diet and pain control with medications at home. Patient was stable for discharge at this time. <Jorje Harvey MD - Last Filed: 01/12/24 22:01> Medical Records Medical records reviewed: Yes I reviewed the external patient's medical records. <Jorje Harvey MD - Last Filed: 01/12/24 22:01> Vital Signs Vital Signs: Vital Signs Temperature 36.8 C 01/12/24 14:33 Pulse Rate 74 01/12/24 14:33 Respiratory Rate 18 01/12/24 14:33 Blood Pressure 141/85 H 01/12/24 14:33 Pulse Oximetry 99 01/12/24 14:33 Oxygen Delivery Room Air 01/12/24 14:33 Temperature 36.7 C 01/12/24 21:49 Pulse Rate 75 01/12/24 21:49 Respiratory Rate 16 01/12/24 21:49 Blood Pressure 159/84 H 01/12/24 21:49 Pulse Oximetry 97 01/12/24 21:49 Oxygen Delivery Room Air 01/12/24 14:33 <Gina King APRN - Last Filed: 01/12/24 14:59> Vital Signs Temperature 36.8 C 01/12/24 14:33 Pulse Rate 74 01/12/24 14:33 Respiratory Rate 18 01/12/24 14:33 Blood Pressure 141/85 H 01/12/24 14:33 Pulse Oximetry 99 01/12/24 14:33 Oxygen Delivery Room Air 01/12/24 14:33 Temperature 36.7 C 01/12/24 21:49 Pulse Rate 75 01/12/24 21:49 Respiratory Rate 16 01/12/24 21:49 Blood Pressure 159/84 H 01/12/24 21:49 Pulse Oximetry 97 01/12/24 21:49 Oxygen Delivery Room Air 01/12/24 14:33 <Jorje Harvey MD - Last Filed: 01/12/24 22:01> Lab Data Lab results reviewed: Yes I reviewed the patient's lab results. <Jorje Harvey MD - Last Filed: 01/12/24 22:01> Result diagrams: 01/12/24 15:06 01/12/24 19:38 <Gina King APRN - Last Filed: 01/12/24 14:59> Labs: Lab Results 01/12/24 01/12/24 01/12/24 Range/Units 15:06 19:38 20:18 WBC 11.7 H (4.5-10.0) K/mm3 RBC 5.10 (4.2-5.4) M/mm3 Hgb 13.8 (12.0-15.0) g/dL Hct 42.8 (37.0-47.0) % MCV 83.9 (80-100) fl MCH 27.1 (26-34) pg MCHC 32.2 (32-36) g/dl RDW 13.8 (11.5-14.5) % Plt Count 636 H D (150-375) k/mm3 MPV 10.6 H (7.4-10.4) fl Immature Gran % (Auto) 0.3 (0-0.5) % Neut % (Auto) 63.6 (45.5-73.1) % Lymph % (Auto) 23.7 (18.3-44.2) % Davis % (Auto) 6.8 (2.6-8.5) % Eos % (Auto) 4.6 H (0-4.4) % Baso % (Auto) 1.0 (0.2-1.2) % Lymph # (Auto) 2.76 (0.9-3.2) K/mm3 Davis # (Auto) 0.8 H (0.1-0.6) K/mm3 Eos # (Auto) 0.5 H (0-0.3) K/mm3 Baso # (Auto) 0.1 (0.0-0.1) K/mm3 Abs Immat Gran (auto) 0.04 H (0.00-0.031) K/mm3 Absolute Neuts (auto) 7.4 H (1.3-6.7) K/mm3 Absolute Nucleated RBC 0.000 (0.0-0.012) K/mm3 Nucleated RBC % 0.0 (0.0-0.2) % PT 13.0 (11.1-14.7) Seconds INR 0.9 APTT 24.6 (22.3-36.8) Seconds D-Dimer Cancelled Sodium Cancelled 135 L Potassium Cancelled 4.3 Chloride Cancelled 103 Carbon Dioxide Cancelled 25 Anion Gap Cancelled 7 BUN Cancelled 10 Creatinine Cancelled 0.50 L Estim Creat Clear Calc Cancelled 115 Estimated GFR Cancelled > 60 Glucose Cancelled 115 H Lactic Acid 1.6 (0.7-2.0) mmol/L Calcium Cancelled 10.4 H Magnesium 2.0 (1.6-2.3) mg/dL Total Bilirubin Cancelled 0.6 AST Cancelled 27 ALT Cancelled 21 Alkaline Phosphatase Cancelled 98 Troponin I Cancelled Total Protein Cancelled 8.0 Albumin Cancelled 4.2 Lipase Cancelled 221 Urine Color Yellow (Yellow) Urine Appearance Clear (Clear) Urine pH 6.5 (5.0-9.0) Ur Specific [place] 1.005 (1.001-1.035) Urine Protein Negative (Negative) mg/dL Urine Glucose (UA) Negative (Negative) mg/dL Urine Ketones Negative (Negative) mg/dL Ur Blood (Man) Negative (Negative) Urine Nitrate Negative (Negative) Urine Bilirubin Negative (Negative) Urine Urobilinogen 0.2 (<2.0) mg/dL Leukocyte Esterase Rfl Negative (Negative) ALEC/UL <Gina King, TINNING MACHINE SET UP OPERATOR - Last Filed: 01/12/24 14:59> Lab Results 01/12/24 01/12/24 01/12/24 Range/Units 15:06 19:38 20:18 WBC 11.7 H (4.5-10.0) K/mm3 RBC 5.10 (4.2-5.4) M/mm3 Hgb 13.8 (12.0-15.0) g/dL Hct 42.8 (37.0-47.0) % MCV 83.9 (80-100) fl MCH 27.1 (26-34) pg MCHC 32.2 (32-36) g/dl RDW 13.8 (11.5-14.5) % Plt Count 636 H D (150-375) k/mm3 MPV 10.6 H (7.4-10.4) fl Immature Gran % (Auto) 0.3 (0-0.5) % Neut % (Auto) 63.6 (45.5-73.1) % Lymph % (Auto) 23.7 (18.3-44.2) % Davis % (Auto) 6.8 (2.6-8.5) % Eos % (Auto) 4.6 H (0-4.4) % Baso % (Auto) 1.0 (0.2-1.2) % Lymph # (Auto) 2.76 (0.9-3.2) K/mm3 Davis # (Auto) 0.8 H (0.1-0.6) K/mm3 Eos # (Auto) 0.5 H (0-0.3) K/mm3 Baso # (Auto) 0.1 (0.0-0.1) K/mm3 Abs Immat Gran (auto) 0.04 H (0.00-0.031) K/mm3 Absolute Neuts (auto) 7.4 H (1.3-6.7) K/mm3 Absolute Nucleated RBC 0.000 (0.0-0.012) K/mm3 Nucleated RBC % 0.0 (0.0-0.2) % PT 13.0 (11.1-14.7) Seconds INR 0.9 APTT 24.6 (22.3-36.8) Seconds D-Dimer Cancelled Sodium Cancelled 135 L Potassium Cancelled 4.3 Chloride Cancelled 103 Carbon Dioxide Cancelled 25 Anion Gap Cancelled 7 BUN Cancelled 10 Creatinine Cancelled 0.50 L Estim Creat Clear Calc Cancelled 115 Estimated GFR Cancelled > 60 Glucose Cancelled 115 H Lactic Acid 1.6 (0.7-2.0) mmol/L Calcium Cancelled 10.4 H Magnesium 2.0 (1.6-2.3) mg/dL Total Bilirubin Cancelled 0.6 AST Cancelled 27 ALT Cancelled 21 Alkaline Phosphatase Cancelled 98 Troponin I Cancelled Total Protein Cancelled 8.0 Albumin Cancelled 4.2 Lipase Cancelled 221 Urine Color Yellow (Yellow) Urine Appearance Clear (Clear) Urine pH 6.5 (5.0-9.0) Ur Specific [place] 1.005 (1.001-1.035) Urine Protein Negative (Negative) mg/dL Urine Glucose (UA) Negative (Negative) mg/dL Urine Ketones Negative (Negative) mg/dL Ur Blood (Man) Negative (Negative) Urine Nitrate Negative (Negative) Urine Bilirubin Negative (Negative) Urine Urobilinogen 0.2 (<2.0) mg/dL Leukocyte Esterase Rfl Negative (Negative) ALEC/UL <Jorje Harvey MD - Last Filed: 01/12/24 22:01> Imaging Data Attestation: I personally reviewed and interpreted this imaging study as follows: <Jorje Harvey MD - Last Filed: 01/12/24 22:01> Radiologist's impression: Impressions Chest X-Ray 01/12/24 15:14 IMPRESSION: 1. Mild atelectasis at left lung base. Abdomen/Pelvis CT 01/12/24 20:20 IMPRESSION: 1. Acute necrotizing pancreatitis with worsened findings from 12/26/23. <Jorje Harvey MD - Last Filed: 01/12/24 22:01> ECG Data EKG #1: Attestation: I personally reviewed and interpreted this ECG as follows: <Jorje Harvey MD - Last Filed: 01/12/24 22:01> ECG completion date: 01/12/24 <Jorje Harvey MD - Last Filed: 01/12/24 22:01> ECG completion time: 15:30 <Jorje Harvey MD - Last Filed: 01/12/24 22:01> Prior ECG tracings: available for review <Jorje Harvey MD - Last Filed: 01/12/24 22:01> Interpretation: Regular rate rhythm an axis, no ST segment elevations, depressions or inversions. QTC of 381, QRS of 90, WI interval 137. No signs of acute ischemic changes. Normal sinus rhythm per my interpretation. <Jorje Harvey MD - Last Filed: 01/12/24 22:01> EKG Interpretation: normal rate, sinus rhythm, no ST changes, normal QRS, normal QT and no acute changes <Jorje Harvey MD - Last Filed: 01/12/24 22:01> Discharge Plan Discharge Clinical Impression: Necrotizing pancreatitis <Gina King APRN - Last Filed: 01/12/24 14:59> Patient Disposition: Home, Self-Care <Gina King APRN - Last Filed: 01/12/24 14:59> Condition: Stable <Gina King APRN - Last Filed: 01/12/24 14:59> Instructions: Antibiotic Form, Pancreatitis (ED) <Gina King APRN - Last Filed: 01/12/24 14:59> Additional Instructions: given your reassuring labs and workup as well as her pain being under control we discussed the case with her general surgeon who feels your stable for outpatient follow-up appointment. Your appointment is already scheduled for Monday. Please return at any point if you have any worsening pain, development of new symptoms, fevers, nausea vomiting or any other concerning features to herself. Please stick to a bland diet as well as oral pain medications. Keep your follow-up appointment on Monday or return at any time before then if concerned. <Gina King APRN - Last Filed: 01/12/24 14:59> Prescriptions: No Action Zepbound 10 mg/0.5 mL pen injector 10 mg SUBCUT WEEKLY Rx Instructions: MONDAY carvedilol [Coreg] 6.25 mg tablet 12.5 mg PO BID losartan-hydrochlorothiazide [Hyzaar] 100-12.5 mg tablet 1 tablet PO DAILY felodipine 10 mg tablet extended release 24 hr 10 mg PO HS albuterol sulfate 90 mcg/actuation HFA aerosol inhaler 1 puff INHALATION Q4H PRN (Reason: Shortness Of Breath Or Wheezing) duloxetine 20 mg capsule,delayed release(DR/EC) 20 mg PO BID hydrocodone-acetaminophen 5-325 mg tablet 1 tablet PO Q6H PRN (Reason: pain) Qty: 20 0RF <Gina King APRN - Last Filed: 01/12/24 14:59> Follow-up/Referrals: Ishaan Neal MD [Primary Care Provider] - <Gina King APRN - Last Filed: 01/12/24 14:59> Time of Disposition: 22:01 <Gina King APRN - Last Filed: 01/12/24 14:59> 22:01 <Jorje Harvey MD - Last Filed: 01/12/24 22:01>
[2024-01-12 15:15] LABS: Basophils Absolute Auto 0.1 K/mm3 (0.0-0.1); Eosinophils Absolute Auto 0.5 K/mm3 (0-0.3); Eosinophils Percent Auto 4.6 % (0-4.4); Hematocrit 42.8 % (37.0-47.0); Hemoglobin 13.8 g/dL (12.0-15.0); Immature Granulocyte Absolute 0.04 K/mm3 (0.00-0.031); Immature Granulocyte Percent A 0.3 % (0-0.5); Lymphocytes Absolute Auto 2.76 K/mm3 (0.9-3.2); Lymphocytes Percent Auto 23.7 % (18.3-44.2); Mean Corpuscular HGB Conc 32.2 g/dl (32-36); Mean Corpuscular Hemoglobin 27.1 pg (26-34); Mean Corpuscular Volume 83.9 fl (80-100); Mean Platelet Volume 10.6 fl (7.4-10.4); Monocytes Absolute Auto 0.8 K/mm3 (0.1-0.6); Monocytes Percent Auto 6.8 % (2.6-8.5); Neutrophils Absolute Auto 7.4 K/mm3 (1.3-6.7); Neutrophils Percent Auto 63.6 % (45.5-73.1); Platelet Count Result 636 k/mm3 (150-375); Red Cell Distribution Width 13.8 % (11.5-14.5); White Blood Count 11.7 K/mm3 (4.5-10.0)
[2024-01-12 15:31] LABS: Lactic Acid Reflex 1.6 mmol/L (0.7-2.0)
[2024-01-12] MEDS: SODIUM CHLORIDE 0.9% IV 1,000 ML 999 ML IV CONT (18:58)
[2024-01-12 19:02] VITALS: BP 153/107
[2024-01-12 19:28] VITALS: BP 160/80; PULSE 73; RESP 16; TEMP 36.7; O2SAT 100
[2024-01-12] MEDS: ONDANSETRON INJ 4 MG/2 ML VIAL IV PUSH (19:31)
[2024-01-12] MEDS: MORPHINE SULFATE (*CRX) 4 MG/ML INJ IV PUSH (19:31)
[2024-01-12 19:54] LABS: Alanine Aminotransferase 21 U/L (6-35); Albumin Level 4.2 g/dL (3.5-5.1); Alkaline Phosphatase 98 U/L (38-126); Anion Gap 7 mmol/L (4-12); Aspartate Amino Transferase 27 U/L (14-36); Bilirubin,Total 0.6 mg/dL (0.2-1.3); Blood Urea Nitrogen 10 mg/dL (7-17); Calcium 10.4 mg/dL (8.4-10.2); Carbon Dioxide 25 mmol/L (22-30); Chloride 103 mmol/L (98-107); Estimated CRCL calculation 115 ml/min; Estimated Glomerular Filt Rate > 60; Glucose 115 mg/dL (65-110); Lipase 221 U/L (23-300); Potassium 4.3 mmol/L (3.4-5.0); Sodium 135 mmol/L (137-145)
[2024-01-12 19:56] LABS: INR 0.9
[2024-01-12 19:57] LABS: Partial Thromboplastin Time 24.6 Seconds (22.3-36.8)
[2024-01-12 20:29] LABS: Add Urine Microscopic? NO; Appearance Urine Clear (Clear); Bilirubin Urine Negative (Negative); Blood Urine Negative (Negative); Color Urine Yellow (Yellow); Glucose Urine UA Negative (Negative); Ketones Urine Negative (Negative); Leukocyte Esterase Ur Negative LEU/UL (Negative); Nitrate Urine Negative (Negative); Protein Urine Negative (Negative); Specific Grav Ur 1.005 (1.001-1.035); Urobilinogen Urine 0.2 mg/dL (<2.0); pH Urine 6.5 (5.0-9.0)
[2024-01-12 21:49] VITALS: BP 159/84; PULSE 75; RESP 16; TEMP 36.7; O2SAT 97
== END 2024-01-12 22:09 | disposition home or self-care (01) ==
PROVIDERS: Registered Nurse; Emergency Provider Student in an Organized Health Care Education/Training Program; PCP Internal Medicine
DX: K85.91 Acute pancreatitis with uninfected necrosis, unspecified (principal); J45.909 Unspecified asthma, uncomplicated; I10 Essential (primary) hypertension; Z90.79 Acquired absence of other genital organ(s); Z90.722 Acquired absence of ovaries, bilateral; Z90.710 Acquired absence of both cervix and uterus; Z90.49 Acquired absence of other specified parts of digestive tract; R94.31 Abnormal electrocardiogram [ECG] [EKG]
CPT/HCPCS: 36415; 71046; 74177; 80053; 81003; 83605; 83690; 83735; 85025; 85610; 85730; 87040; 93005; 96361; 96374; 96375; 99284; J2270; J2405; J7030; Q9967

== ENCOUNTER 2025-01-01 16:00 | Outpatient (CLI) | payer OTHER, SELFPAY ==
--- OUTSIDE RECORDS SUMMARY | 2025-01-01 16:23 | XMS_ITS | Clinical Summary ---
Author Organization [facility] Address [address] [place] [address] Care Team Providers Care Drug Enforcement Administration Agent Name Role Phone Ishaan Neal MD Primary Care Provider [phone] Kurt Schneider MD Unavailable [phone] Allergies Active Allergy Reactions Criticality Noted Date Comments Codeine Unknown 03/31/2016 Erythromycin Unknown 03/31/2016 Sulfacetamide Unknown 03/31/2016 Medications CARVEDILOL 12.5 MG tablet TAKE ONE TABLET BY MOUTH TWICE A DAY 180 tablet 05/27/2020 Active CHLORTHALIDONE 25 MG tablet TAKE ONE TABLET BY MOUTH DAILY 90 tablet 3 09/20/2020 Active LISINOPRIL 20 MG tablet TAKE ONE TABLET BY MOUTH DAILY 90 tablet 3 09/20/2020 Active Active Problems Problem Noted Date Diagnosed Date Palpitations 08/22/2020 Chest pain at rest 10/10/2017 HTN (hypertension) Hyperlipidemia Family History Medical History Relation Comments Aneurysm Maternal Grandfather CABG Maternal Grandfather Relation Status Comments Maternal Grandfather Social History Tobacco Use Types Packs/Day Years Used Date Smoking Tobacco: Never Smokeless Tobacco: Never Alcohol Use Standard Drinks/Week Comments No 0 (1 standard drink = 0.6 oz pur e alcohol) Comments Unknown Sex and Gender Information Value Date Recorded Sex Assigned at Not on file Legal Sex Female 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 Gender Identity Not on file Sexual Orientation Not on file Occupation Industry Job Start Date Job End Date Not on file Not on file Not on file Not on file Last Filed Vital Signs Vital Sign Reading Time Taken Comments Blood Pressure 138/81 07/30/2020 10:35 AM CDT Pulse 78 07/30/2020 10:30 AM CDT Temperature - - Respiratory Rate 20 07/30/2020 10:30 AM CDT Oxygen Saturation 98% 04/08/2016 10:48 AM SAP DEVELOPER Inhaled Oxygen Concentration - - Weight 86.9 kg (191 lb 9.6 oz) 07/30/2020 10:30 AM CDT Height 168.9 cm (5' 6.5) 07/30/2020 10:30 AM CD T Body Mass Index 30.46 07/30/2020 10:30 AM CDT Plan of Treatment Health Maintenance Due Date Last Done Comments Colorectal Cancer Screening Colonoscopy (10 Years) 1963 Annual Physical 08/06/1966 Hepatitis C 08/06/1981 DTaP, Tdap and Td Vaccines ( 1 - Tdap) 08/06/1982 Mammogram Screening 2003 Pneumococcal Vaccine: 50+ Ye ars (1 of 1 - PCV) 08/06/2013 Zoster Vaccines (1 of 2) 08/06/2013 COVID-19 Vaccine (1 - 2024-2 6 season) 2024 Influenza Adult (#1) 2024 RSV Immunization or 60+ Years (1 - 1-dose 75+ series) 08/06/2038 Hepatitis A Vaccines Aged Out No long er eligible based on patient's age to complete this topic Meningococcal B Vaccine Aged Out No l onger eligible based on patient's age to complete this topic Meningococcal Vaccine Aged Out No ana luisa gokul eligible based on patient's age to complete this topic RSV Immunizations Under 20 Months Aged Out No longer eligible based on patient's age to complete this topic Care Teams Drug Enforcement Administration Agent Relationship Specialty Start Date End Date Ishaan Neal MD [address] [place] [address] PCP - General INTERNAL MEDICINE 04/06/16 Kurt Schneider MD [address] [place] [address] [employer] Developer CARDIOVASCULAR DISEASE 04/06/16
--- OUTSIDE RECORDS SUMMARY | 2025-01-01 16:23 | XMS_ITS | Encounter Summary ---
Author Organization [facility] Address [address] [place] [address] Care Team Providers Care Rack Pusher Name Role Phone Ishaan Neal MD Primary Care Provider [phone] Kurt Schneider MD Unavailable [phone] Encounter Details Date Type Department Care Team (Late st Contact Info) Description 10/03/2017 Abstract [facility] [address] [place] [address] Kurt Schneider MD [address] [place] [address] Social History Tobacco Use Types Packs/Day Years Used Date Smoking Tobacco: Never Smokeless Tobacco: Never Alcohol Use Standard Drinks/Week Comments No 0 (1 standard drink = 0.6 oz pur e alcohol) Comments Unknown Sex and Gender Information Value Date Recorded Sex Assigned at Not on file Legal Sex Female 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 ATTENDANT Gender Identity Not on file Sexual Orientation Not on file Occupation Industry Job Start Date Job End Date Not on file Not on file Not on file Not on file documented as of this encounter Plan of Treatment Not on file documented as of this encounter Visit Diagnoses Not on filedocumented in this encounter Care Teams Rack Pusher Relationship Specialty Start Date End Date Ishaan Neal MD [address] [place] [id number] PCP - General INTERNAL MEDICINE 04/06/16 Kurt Schneider MD [address] [place] [address] [employer] CARDIOVASCULAR DISEASE 04/06/16 documented as of this encounter
--- OUTSIDE RECORDS SUMMARY | 2025-01-01 16:23 | XMS_ITS | Encounter Summary ---
Author Organization [facility] Address [address] [place] [address] Phone Care Team Providers Care Coal Drier Operator Name Role Phone Ishaan Neal MD Primary Care Provider Encounter Details Date Type Department Care Team (Latest Contact Info) Description 10/03/2022 Orders Only JO IM EML Scanning, Provider Social History Tobacco Use Types Packs/Day Years Used Date Smoking Tobacco: Never Assessed Comments Unknown Sex and Gender Information Value Date Recorded Sex Assigned at Not on file Legal Sex Female 10:14 AM CDT Gender Identity Not on file Sexual Orientation Not on file documented as of this encounter Plan of Treatment Not on file documented as of this encounter Procedures Procedure Name Priority Date/Time Associated Diagnosis Comments SCAN - RADIOLOGY/IMAGING 10/03/2022 documented in this encounter Results * SCAN - RADIOLOGY/IMAGING (10/03/2022) Anatomical Region Laterality Modality Other us Provider Scanning Final Result documented in this encounter Visit Diagnoses Not on filedocumented in this encounter Care Teams Coal Drier Operator Relationship Specialty Start Date End Date Ishaan Neal MD PCP - General Internal Medicine 05/31/18 documented as of this encounter
--- OUTSIDE RECORDS SUMMARY | 2025-01-01 16:23 | XMS_ITS | Clinical Summary ---
Author Organization [facility] Address [address] [place] [address] Care Team Providers Care Manager Site Name Role Phone Ishaan Neal MD Primary Care Provider [phone] Allergies Active Allergy Reactions Criticality Noted Date Comments Codeine Vomiting Low 03/31/2016 Erythromycin Rash Medium 03/31/2016 Sulfacetamide Rash Medium 03/31/2016 Medications carvediloL (COREG) 12.5 mg tabletIndications: hypertension Take 1 tablet (12.5 mg total) by mouth 2 (two) times a day with meals [address] (CYMBALTA) 20 mg capsuleIndications :Fibromyalgia Take 1 capsule (20 mg total) by mouth 2 (two) times a day 3 Active losartan-hydroCHLO ROthiazide (HYZAAR) 100-12.5 mg per tabletIndications: hypertension Take 1 tablet by mouth every morning 3 Active albuterol HFA (PROVENTIL HFA,VENTOLIN HFA,PROAIR HFA) 90 mcg/actuation inhalerIndications :Acute Asthma Attack Inhale 2 puffs every 4 (four) hours as needed for wheezing or shortness of breath 4 Active felodipine (PLENDIL) 10 mg 24 hr tabletIndications: hypertension Take 1 tablet (10 mg total) by mouth nightly Active cetirizine (ZyrTEC) 10 mg tabletIndications: Seasonal Allergic Rhinitis Take 1 tablet (10 mg total) by mouth as needed for allergies Active vitamin b complex tabletIndications: Vitamin Deficiency Prevention Take 1 tablet by mouth every morning Active calc/D3/mag cit,ox/K2/rbtd997 (ALIVE CALCIUM-VITAMIN D3-K2 ORAL)Indications:B [facility] Take 1 tablet by mouth every morning Active magnesium oxide 400 mg magnesium capsuleIndications :Nerve pain Take 1 capsule by mouth every morning Active ergocalciferol (VITAMIN D) 50,000 unit capsuleIndications :Vitamin D Deficiency Take 1 capsule (50,000 Units total) by mouth 2 (two) times a week TAKE 1 CAP 2 X A WEEK FOR 8 WEEKS THEN FOLLOW UP WITH YOUR PCP. 16 capsule 5 Active calcium carbonate (Calcium 600) 1,500 mg (600 mg elemental) tabletIndications: Hypocalcemia Prevention,Osteopo rosis Take 1 tablet (1,500 mg total) by mouth daily 30 tablet 2 5 Active acetaminophen (TYLENOL) 500 mg tablet Take 2 tablets (1,000 mg total) by mouth every 8 (eight) hours 90 tablet 1 5 Active aspirin 81 mg enteric coated tabletIndications: prevention of thrombosis Take 1 tablet (81 mg total) by mouth 2 (two) times a day 60 tablet [address] (PROTONIX) 20 mg EC tablet Take 1 tablet (20 mg total) by mouth daily 30 tablet 5 Active senna-docusate (Senna-S) 8.6-50 mg Take 2 tablets by mouth 2 (two) times a day 80 tablet 1 5 Active ondansetron ODT (ZOFRAN-ODT) 4 mg disintegrating tablet Take 1 tablet (4 mg total) by mouth every 8 (eight) hours as needed for nausea or vomiting 20 tablet 5 Active pregabalin (LYRICA) 75 mg capsuleIndications :Postoperative pain Take 1 capsule (75 mg total) by mouth 2 (two) times a day 60 capsule 5 5 Active meloxicam (MOBIC) 15 mg tablet TAKE ONE (1) TABLET (15 MG TOTAL) BY MOUTH DAILY 30 tablet 1 5 Active Active Problems Problem Noted Date Diagnosed Date Vitamin D deficiency 05/29/2024 Hyperthyroidism 05/29/2024 Fibromyalgia 05/29/2024 Primary osteoarthritis of left hip 05/13/2024 HTN (hypertension) 12/01/2023 Hyperlipidemia 12/01/2023 Palpitations 08/22/2020 Chest pain at rest 10/10/2017 Encounters Date Type Department Care Team Description 10/08/2024 Telephone [facility] Radiology [address] [place] [address] Kasey Villaseñor B.A. 10/02/2024 Orders Only [facility] Medicine Orthopaedic Surgery [address] [place] [address] Patrick Brooks MD Left hip pain (Primary Dx); Hip tendonitis, left from Last 3 Months Immunizations Immunization Administration Dates Next Due Tdap 11/22/2020 Surgical History Surgery Date Site/Laterality Comments TONSILLECTOMY 02/20/1969 - 02/19/1970 HYSTERECTOMY 02/20/2007 - 02/20/2008 CHOLECYSTECTOMY 12/22/2023 - 01/20/2024 Medical History Medical History Date Comments Hypertension Asthma Fibromyalgia Social History Tobacco Use Types Packs/Day Years Used Date Smoking Tobacco: Never Passive Smoke Exposure: Past Smokeless Tobacco: Never Tobacco Cessation:Counseling Given: Not Answered Comments:Never AUDIT-C Answer Date Recorded Q1: How often do you have a drink containing alc ohol? 2-4 times a month 06/03/2024 Q2: How many drinks containi ng alcohol do you have on a typical day when you are drinking? 1 or 2 06/03/2024 Q3: How often do you have si x or more drinks on one occasion? Never 06/03/2024 Personal Safety Answer Date Recorded Have you ever been in or are you currently in a harmful physical or emotional relationship or is someone making you feel afraid or unsafe? Denies 06/03/2024 Comments No Sex and Gender Information Value Date Recorded Sex Assigned at Not on file Legal Sex Female 10:14 AM CDT Gender Identity Not on file Sexual Orientation Not on file Last Filed Vital Signs Vital Sign Reading Time Taken Comments Blood Pressure 144/85 06/03/2024 12:10 PM CDT Pulse 84 06/03/2024 11:40 AM CDT Temperature 35.8 C (96.4 F) 06/03/2024 10:20 AM CDT Respiratory Rate 22 06/03/2024 10:20 AM CDT Oxygen Saturation 92% 06/03/2024 11:40 AM CDT Inhaled Oxygen Concentration - - Weight 91.2 kg (201 lb) 06/03/2024 5:23 AM CDT Height 170.2 cm (5' 7) 06/03/2024 5:23 AM CDT Body Mass Index 31.48 06/03/2024 5:23 AM CDT Plan of Treatment Health Maintenance Due Date Last Done Comments Breast Cancer Screening-Mammogram 1965 Colon Cancer Screening-Colonoscopy 1963 Depression Screening 1963 Hepatitis C Screening 1963 Hepatitis B Screening 08/06/1981 Regular Well Visit/Exam 18-64 08/06/1981 Pneumococcal vaccine <65 (1 of 2 - PCV) 08/06/1982 Zoster Vaccine (1 of 2) 08/06/2013 Covid-19 Vaccine (3 - season) 10/21/202404/2020, 11/01/2020 Influenza Vaccine (#1) 2024 DTaP/Tdap/Td Vaccine (2 - Td or Tdap) 11/22/203004/2020 Medical Devices Implanted Type Area Office Executive Device Identifier Shelf Expiration Date Model / Serial / Lot Insert Trident 0deg X3 32mm Id Implanted:Qty: 1 on 06/03/2024 at [facility] Other - see comments Left: Hip [place] 01/17/2026 723-00-32 C / / [id number] [employer] Shell Acetabular Trident Ii Tritanium C Od46mm Hip 3 Screw Hole Cluster Sterile 702-04-46c - [id number] Implanted:Qty: 1 on 06/03/2024 at [facility] Left: Hip [employer] 01/14/2027 702-04-46 C / / [id number] [employer] Screw Bone Trident Ii L20mm Od6.5mm Low Profile Hexagonal Sterile 7745-3031 - [id number] Implanted:Qty: 1 on 06/03/2024 at [facility] Left: Hip [employer] 02/24/2029 7822-2280 / / [id number] [employer] Screw Bone Trident Ii L25mm Od6.5mm Low Profile Hexagonal Sterile 8704-9330 - [id number] Implanted:Qty: 1 on 06/03/2024 at [facility] Left: Hip [employer] 05/01/2029 6122-9664 / / [id number] [employer] V40 32mm Hip +0mm Offset Taper Head Femoral [employer] Delta 6570-0-132 - [id number] Implanted:Qty: 1 on 06/03/2024 at [facility] Left: Hip [employer] 05/31/2027 6570-0-13 2 / / [id number] [employer] Stem Femoral Hip Collared [employer] [id number] High Offset Size 3 0775-4875 - [id number] Implanted:Qty: 1 on 06/03/2024 at [facility] Left: Hip [employer] 04/30/2029 8005-7426 / / [id number] Insurance WORKERS COMPENSATION GENERIC PAMELLA MCCORMACK Care Teams Manager Site Relationship Specialty Start Date End Date Ishaan Neal MD PCP - General Internal Medicine 05/31/18
[2025-01-01 16:25] LABS: Hematocrit 45.9 % (35.0-49.0); Hemoglobin 14.5 g/dL (12.0-15.0); Mean Corpuscular HGB Conc 31.6 g/dL (32-36); Mean Corpuscular Hemoglobin 26.4 pg (27.0-31.0); Mean Corpuscular Volume 83.6 fL (78.0-102.0); Platelet Count Result 313 K/mm3 (150-420); Red Blood Count 5.49 M/mm3 (4.20-5.40); White Blood Count 9.5 K/mm3 (4.8-10.8)
[2025-01-01 16:43] LABS: Alanine Aminotransferase 36 U/L (6-35); Albumin Level 4.5 g/dL (3.5-5.1); Alkaline Phosphatase 125 U/L (38-126); Amylase 67 U/L (30-110); Anion Gap 8 mmol/L (4-12); Aspartate Amino Transferase 29 U/L (14-36); Blood Urea Nitrogen 13 mg/dL (7-17); Calcium 11.0 mg/dL (8.4-10.2); Carbon Dioxide 27 mmol/L (22-30); Chloride 107 mmol/L (98-107); Estimated Glomerular Filt Rate > 60; Glucose 109 mg/dL (65-110); Lipase 165 U/L (23-300); Osmolality Calculated 295 mOsm/kg (285-295); Potassium 4.3 mmol/L (3.4-5.0); Sodium 142 mmol/L (137-145); Total Protein 7.1 g/dL (6.3-8.2)
[2025-01-01 17:02] LABS: Add Urine Microscopic? YES; Appearance Urine Cloudy (Clear); Glucose Urine UA Negative (Negative); Leukocyte Esterase Ur Trace (Negative); Nitrate Urine Negative (Negative); Specific Grav Ur 1.020 (1.010-1.020)
[2025-01-01 18:04] LABS: Thyroid Stimulating Hormone < 0.015 uIU/mL (0.465-4.680)
[2025-01-02 10:05] LABS: Free T4 Free Thyroxine 2.04 ng/dL (0.78-2.19)
[2025-01-02 10:56] LABS: Free T3 6.66 pg/mL (2.18-3.98)
[2025-01-03 10:59] LABS: Hepatitis B Surface Antigen Negative (Negative)
[2025-01-03 11:05] LABS: HAV RESULT Negative (Negative); Hepatitis B Core IgM Result Negative (Negative)
[2025-01-07 13:37] LABS: Bilirubin,Total 0.3 mg/dL (0.2-1.3)
== END 2025-01-01 16:01 | disposition home or self-care (01) ==
LOC: CHSLAB 16:02
PROVIDERS: PCP Internal Medicine; Visit Provider Internal Medicine
DX: R10.9 Unspecified abdominal pain (principal); I10 Essential (primary) hypertension
CPT/HCPCS: 36415; 80053; 80074; 81001; 82150; 83690; 84439; 84443; 84481; 85027